=== PATIENT | male | born 1960 | race Caucasian/White ===

== ENCOUNTER 2018-05-02 14:59 | Emergency (ER) | payer MEDICARE, OTHER ==
[~2018-05-02] VITALS: Ht 170.2 cm; Wt 76.2 kg
[~2018-05-02 14:59] MED LIST: SYNTHROID137 MCG ORAL
--- NOTE | 2018-05-02 15:00 | NUR ---
Note pb in EDM - 05/02/18 at 1646 by JOCELIN ED Nurse Note: Pt was taken to CT, per [place]. Pt was returned to ED due to CT being down. Will reattempt to send pt after CT is working
--- NOTE | 2018-05-02 15:00 | NUR ---
ED Nurse Note: Pt brought by ambulance, pt was feeling dizzy and fell. per pt, he fell 4x the last 4 days. per pt he hit his head and entire right side. per pt pain is bearable 5/10 but knees hurt. bruises are present at pt knees prior to arrival.
[2018-05-02 15:05] VITALS: BP 133/69
--- NOTE | 2018-05-02 15:29 | Emergency Room Report ---
History of Present Illness General Chief Complaint: Dizziness Source: Patient, EMS Present Illness HPI 58-year-old male, with history of hypothyroidism, presenting with dizziness. Patient says that he's been dizzy, sometimes room spinning, has caused him to fall and the last 3 days, he has had 4 ground-level falls. Says that he has not hit his head or loss consciousness. He did hit his right knee as well as a as well as his right rib cage that has been painful. No actual open wounds but he does have abrasions. No chest pain or shortness of breath. No blurry vision. No nausea no vomiting. Says that he has felt dehydrated and has not eaten in 3 days. No fever no chills Allergies: Coded Allergies: No Known Allergies (Unverified , 05/02/18) Patient History Past Medical History: see triage record Past Surgical History: none Pertinent Family History: none Reviewed Nursing Documentation: PMH: Agreed; PSxH: Agreed Review of Systems All Other Systems: negative except mentioned in HPI Physical Exam Vital Signs Date Time Temp Pulse Resp B/P (MAP) Pulse Ox O2 Delivery O2 Flow Rate FiO2 05/02/18 14:52 99.5 100 24 133/69 100 Room Air Sp02 EP Interpretation: reviewed, normal General Appearance: alert, GCS 15, non-toxic, mild distress Head: normocephalic, atraumatic Eyes: bilateral eye normal inspection, bilateral eye PERRL, bilateral eye EOMI ENT: normal ENT inspection, normal pharynx, normal voice, moist mucus membranes Neck: normal inspection, full range of motion, supple Respiratory: normal inspection, lungs clear, normal breath sounds, no respiratory distress, no retraction, no wheezing, speaking full sentences, chest symmetrical Cardiovascular #1: normal inspection, regular rate, rhythm, normal capillary refill Cardiovascular #2: 2+ radial (R), 2+ radial (L) Gastrointestinal: normal inspection, non tender, soft, non-distended, no guarding Genitourinary: no CVA tenderness Musculoskeletal: back normal, other - Right knee with slight effusion and tender to palpation although he does have full range of motion, right rib paper plate machine tender to palpation around sixth and seventh ribs, abrasions noted. No open wounds. Neurologic: normal inspection, alert, oriented x3, responsive, solderer dipper III-XII nml as tested, motor strength/tone normal, sensory intact, normal gait, speech normal Psychiatric: normal inspection, judgement/insight normal, memory normal Skin: normal inspection, normal color, no rash, warm/dry, well hydrated, normal turgor Procedures Critical Care Time Critical Care Time 40 minutes of critical care time performed in order to assess and manage the high probability of imminent of lifethreatening deterioration secondary to neurologic function excludes all billable procedures Medical Decision Making Diagnostic Impression: Primary Impression: Neoplasm of cerebellum Additional Impressions: Lung mass Mass of thoracic vertebra ER Course 58-year-old male with dizziness, also has had 4 falls in the last 4 days DDX: Viral illness, dehydration, electrolyte disturbance, ACS, arrhythmia, CVA, posterior stroke, intracranial bleed Rule out right knee contusion versus fracture, also right rib fracture versus contusion Plan: Obtain labs, ua, EKG, CXR CT head, right knee x-ray, and CT chest ER course: Patient has been monitored during ED stay, HD stable NEUROLOGICALLY INTACT GCS 15 remains NPO keppra and mannitol given lower ext with normal strength b/l Disposition: Patient is to be xferred to [facility] for higher level of care DW neurointensivist Dr Dao from [facility] who has accepted pt for transfer [facility] via ALS Please note that this Emergency Department Report was dictated using [employer] program coordinator technology software, occasionally this can lead to erroneous entry secondary to interpretation by the dictation equipment. EKG Diagnostic Results EP Interpretation: Yes Rate: normal Rhythm: NSR ST Segments: No acute changes ASA given to patient: No Rhythm Strip EP Interpretation: Yes Rate: 91 Rhythm: NSR, no PVCs, no ectopy Chest X-ray CXR: Ordered: Yes 1 view Indication: Dizziness EP interpretation: Yes Interpretation: No consolidation, no effusion, no PTX, no acute cardiopulmonary disease Impression: No acute disease Electronically signed by Richardson Quesada MD Laboratory Tests Test 05/02/18 15:11 05/02/18 15:49 White Blood Count 11.4 K/UL (4.8-10.8) H Red Blood Count 4.84 M/UL (4.70-6.10) Hemoglobin 15.0 G/DL (14.2-18.0) Hematocrit 42.9 % (42.0-52.0) Mean Corpuscular Volume 89 FL (80-99) Mean Corpuscular Hemoglobin 30.9 PG (27.0-31.0) Mean Corpuscular Hemoglobin Concent 34.9 G/DL (32.0-36.0) Red Cell Distribution Width 11.0 % (11.6-14.8) L Platelet Count 352 K/UL (150-450) Mean Platelet Volume 4.9 FL (6.5-10.1) L Neutrophils (%) (Auto) 82.7 % (45.0-75.0) H Lymphocytes (%) (Auto) 8.5 % (20.0-45.0) L Monocytes (%) (Auto) 7.1 % (1.0-10.0) Eosinophils (%) (Auto) 0.3 % (0.0-3.0) Basophils (%) (Auto) 1.4 % (0.0-2.0) Prothrombin Time 10.4 SEC (9.30-11.50) Prothrombin Time INR 1.0 (0.9-1.1) PTT 33 SEC (23-33) Sodium Level 128 MMOL/L (136-145) L Potassium Level 3.6 MMOL/L (3.5-5.1) Chloride Level 92 MMOL/L (98-107) L Carbon Dioxide Level 25 MMOL/L (21-32) Anion Gap 11 mmol/L (5-15) Blood Urea Nitrogen 8 mg/dL (7-18) Creatinine 1.0 MG/DL (0.55-1.30) Estimate Glomerular Filtration Rate > 60 mL/min (>60) Glucose Level 170 MG/DL (74-106) H Calcium Level 9.5 MG/DL (8.5-10.1) Total Bilirubin 0.5 MG/DL (0.2-1.0) Aspartate Amino Transferase (AST) 21 U/L (15-37) Alanine Aminotransferase (ALT) 23 U/L (12-78) Alkaline Phosphatase 83 U/L (46-116) Total Creatine Kinase 75 U/L (26-308) Troponin I 0.000 ng/mL (0.000-0.056) Total Protein 8.0 G/DL (6.4-8.2) Albumin 3.2 G/DL (3.4-5.0) L Globulin 4.8 g/dL Albumin/Globulin Ratio 0.7 (1.0-2.7) L Urine Color Elise Urine Appearance Clear Urine pH 8 (4.5-8.0) Urine Specific [place] 1.010 (1.005-1.035) Urine Protein 2+ (NEGATIVE) H Urine Glucose (UA) Negative (NEGATIVE) Urine Ketones 3+ (NEGATIVE) H Urine Blood 1+ (NEGATIVE) H Urine Nitrite Negative (NEGATIVE) Urine Bilirubin Negative (NEGATIVE) Urine Ictotest Negative (NEGATIVE) Urine Urobilinogen 8 MG/DL (0.0-1.0) H Urine Leukocyte Esterase 1+ (NEGATIVE) H Urine RBC 5-10 /HPF (0 - 0) H Urine WBC 2-4 /HPF (0 - 0) Urine Squamous Epithelial Cells Occasional /LPF Urine Bacteria Few /HPF (NONE) Urine Sperm Few /LPF (NONE) CT/MRI/US Diagnostic Results CT/MRI/US Diagnostic Results : Imaging Test Ordered: CT HEAD AND CT CHEST Impression CT HEAD: Suspected mass within the cerebellum with surrounding edema, mass effect on the fourth ventricle. Further evaluation with gadolinium-enhanced MRI is needed. Neurosurgical consultation is recommended. CT CHEST: Right posterior hilar mass suspicious for bronchogenic carcinoma. Suspicion of metastatic neoplasm with a right T7-8 paravertebral mass measuring 3 x 2.5 x 3.6 cm with adjacent bony erosion of adjacent vertebra. Mild right posterior medial atelectasis. Pulmonary emphysema/COPD. Findings discussed via telephone with the emergency room physician Dr. Quesada 5: 30 PM, 05/02/2018 Last Vital Signs Date Time Temp Pulse Resp B/P (MAP) Pulse Ox O2 Delivery O2 Flow Rate FiO2 05/02/18 14:52 99.5 100 24 133/69 100 Room Air [facility] Condition: Critical Richardson Quesada M.D. May 02, 2018 15:29
--- NOTE | 2018-05-02 15:30 | NUR ---
ED Nurse Note: Pt was taken to CT, per [place]. Pt was returned to ED due to CT being down. Will reattempt to send pt after CT is working
[2018-05-02 15:36] LABS: BASOPHILS % (AUTO) 1.4 % (0.0-2.0); EOSINOPHILS % (AUTO) 0.3 % (0.0-3.0); HEMATOCRIT 42.9 % (42.0-52.0); LYMPHOCYTES % (AUTO) 8.5 % (20.0-45.0); MEAN CORPUSCULAR VOLUME 89 FL (80-99); MONOCYTES % (AUTO) 7.1 % (1.0-10.0); NEUTROPHILS % (AUTO) 82.7 % (45.0-75.0); PLATELET COUNT 352 K/UL (150-450); RED BLOOD COUNT 4.84 M/UL (4.70-6.10); WHITE BLOOD COUNT 11.4 K/UL (4.8-10.8)
[2018-05-02 15:49] LABS: ANION GAP 11 mmol/L (5-15); BLOOD UREA NITROGEN 8 mg/dL (7-18); CALCIUM 9.5 MG/DL (8.5-10.1); CARBON DIOXIDE 25 MMOL/L (21-32); CHLORIDE 92 MMOL/L (98-107); POTASSIUM 3.6 MMOL/L (3.5-5.1); SODIUM 128 MMOL/L (136-145)
[2018-05-02 15:53] LABS: ALANINE AMINOTRANSFERASE 23 U/L (12-78); ALBUMIN 3.2 G/DL (3.4-5.0); ALBUMIN/GLOBULIN RATIO 0.7 (1.0-2.7); ALKALINE PHOSPHATASE 83 U/L (46-116); ASPARTATE AMINO TRANSFERASE 21 U/L (15-37); BILIRUBIN,TOTAL 0.5 MG/DL (0.2-1.0); CREATINE KINASE 75 U/L (26-308)
--- NOTE | 2018-05-02 16:12 | Diagnostic Imaging Report ---
Indication: Pain Knee pain/trauma 3 views of the right knee were obtained. Findings: No acute fracture, malalignment, or joint effusion are identified. There is mild joint space narrowing. The bones appear osteopenic. Impression: Negative for acute findings.
--- NOTE | 2018-05-02 16:14 | Diagnostic Imaging Report ---
Indication: Dyspnea Comparison: None A single view chest radiograph was obtained. Findings: The right hilum is prominent or there may be perihilar infiltrate. Heart size is normal. Lungs are clear. The bones are slightly osteopenic. IMPRESSION: Right hilar mass versus infiltrate. Correlate clinically. Recommend follow-up PA and lateral chest
[2018-05-02 16:23] LABS: APPEARANCE,URINE CLEAR; BILIRUBIN, URINE NEGATIVE (NEGATIVE); GLUCOSE, URINE (UA) NEGATIVE (NEGATIVE); KETONES,URINE 3+ (NEGATIVE); LEUKOCYTE ESTERASE ,URINE 1+ (NEGATIVE); NITRITE,URINE NEGATIVE (NEGATIVE); PH,URINE 8 (4.5-8.0); PROTEIN,URINE 2+ (NEGATIVE); UROBILINOGEN,URINE 8 MG/DL (0.0-1.0)
[2018-05-02 16:24] LABS: COLOR,URINE AMBER
--- NOTE | 2018-05-02 16:35 | NUR ---
ED Nurse Note: CALLED CT TO FOLLOW UP ORDER
--- NOTE | 2018-05-02 16:40 | NUR ---
ED Nurse Note: telephone report give to geneva rutherford.
[2018-05-02 16:52] VITALS: BP 138/75
[2018-05-02] MEDS ORDERED: BREO ELLIPTA 11 EACH IH (17:18)
[2018-05-02] MEDS ORDERED: GLUCOSAMINE1000 M1 PO (17:18)
--- NOTE | 2018-05-02 17:22 | Diagnostic Imaging Report ---
Indication: Dizziness. Frequent falls. Vertigo Technique: Contiguous 5 mm thick transaxial imaging of the head obtained in a Siemens Sensation [address] scanner. Soft tissue and bone windows generated. Automatic Exposure Control was utilized. Total Dose length Product (DLP): 1457.[address] Dose Index Volume (CTDIvol): 70.38 mGy Comparison: none Findings: There is edema within the cerebellum right of midline with suggestion of a underlying mass. Findings suspicious for OCCASIONAL BABYSITTER tumor. Low density vasogenic edema results in compression of the fourth ventricle. Further evaluation with gadolinium-enhanced MRI is recommended.. Supratentorially, the ventricles are mildly prominent. The appear proportional to sulcal prominence, findings in keeping with mild atrophy. Calvarium is unremarkable. IMPRESSION: Suspected mass within the cerebellum with surrounding edema, mass effect on the fourth ventricle. Further evaluation with gadolinium-enhanced MRI is needed. Neurosurgical consultation is recommended. The CT scanner at [facility] is accredited by the [employer] and the scans are performed using dose optimization techniques as appropriate to a performed exam including Automatic Exposure control.
[2018-05-02] MEDS ORDERED: levETIRAcetam 1,000mg/NS100ml 100 ML IVPB ONE (17:30)
--- NOTE | 2018-05-02 17:33 | NUR ---
ED Nurse Note: CT results returned, pt will not be transferred to tele unit
--- NOTE | 2018-05-02 17:34 | Diagnostic Imaging Report ---
Indication: Chest pain Technique: Continuous helical transaxial imaging of the chest was obtained from the thoracic inlet to the upper abdomen. No intravenous contrast was administered. Coronal 2-D reformats were also obtained. Total Dose length Product (DLP): 974.[address] Dose Index Volume (CTDIvol): 23.08 mGy Comparison: none Findings: There is a right posterior hilar mass demonstrated suspicious for bronchogenic carcinoma not evaluated well on this study done without contrast material. The mass is about 3 cm in size. Hyperlucency scattered throughout the upper lobes. Mild right basal atelectasis is present probably post obstructive due to some encroachment or narrowing of the right lower lobe bronchus. There is no significant volume loss in a degree of atelectasis is very mild and subsegmental. Just posterior to the mass there is a 3.6 x 3 x 2.5 cm right paravertebral mass with adjacent contiguous erosion of the part of the T7-T8 vertebra. Finding is suspicious for metastatic neoplasm. The heart is unremarkable. There is a small hiatal hernia. There is breathing motion limiting evaluation. The visualized part of the upper abdomen is unremarkable otherwise. IMPRESSION: Right posterior hilar mass suspicious for bronchogenic carcinoma. Suspicion of metastatic neoplasm with a right T7-8 paravertebral mass measuring 3 x 2.5 x 3.6 cm with adjacent bony erosion of adjacent vertebra. Mild right posterior medial atelectasis. Pulmonary emphysema/COPD. Findings discussed via telephone with the emergency room physician Dr. Quesada 5:30 PM, 05/02/[address] scanner at [facility] is accredited by the [employer] and the scans are performed using dose optimization techniques as appropriate to a performed exam including Automatic Exposure control.
[2018-05-02] MEDS ORDERED: Morphine Sulfate 4mg/ml Inj (IV/IM USE ONLY) IVP PRN (17:45)
[2018-05-02] MEDS ORDERED: Mannitol 20% IV 500 ML ONE (17:45)
[2018-05-02] MEDS ORDERED: Mannitol 20% IV 500 ML IV ONE (17:45)
[2018-05-02] MEDS ORDERED: MULTIVITAMINS1 EAC8 ORAL (18:24)
[2018-05-02] MEDS ORDERED: ALBUTEROL SULF8.5 GM INH (18:27)
--- NOTE | 2018-05-02 18:29 | NUR ---
ED Nurse Note: spoke with hoang from [facility] in regards to pt transport. pt transportation will arrive in 30 min per hoang.
[2018-05-02 18:30] VITALS: BP 138/61
--- NOTE | 2018-05-02 18:41 | NUR ---
ED Nurse Note: called [facility] to give telephone report. Per Nusrat RN ([facility]) "receving nurse is yet to be assigned call back in 10 min". will reattempt telephone report.
[2018-05-02 19:01] VITALS: BP 141/67
--- NOTE | 2018-05-02 19:01 | NUR ---
ED Nurse Note: Telephone report given to ROLF Duarte at [facility] Farzana ABEL.
[2018-05-02 19:29] VITALS: BP 141/67
--- NOTE | 2018-05-02 19:30 | NUR ---
ED Nurse Note: Transport arrived and pt is to tras[facility]ferred [place] [facility], pt is aox 4, stable vss, denies pain
--- NOTE | 2018-05-02 19:31 | NUR ---
ED Nurse Note:' All belongings are taken with pt
--- NOTE | 2018-05-03 16:16 | Cardiology Report ---
APPROVED REPORT EKG Measurement Heart [id number] ID [id number] Normal sinus rhythm Normal ECG
== END 2018-05-02 19:30 | disposition short-term general hospital (02) ==
LOC: EDBD 14:59 → EMR 15:50 → 2E 15:54 → UNDOADMIN 15:54 → EDBEDREQ 16:33 → CANBEDREQ 18:42 → EMR 19:30
DX: D49.6 Neoplasm of unspecified behavior of brain (principal); R91.8 Other nonspecific abnormal finding of lung field; M48.8X4 Other specified spondylopathies, thoracic region; E03.9 Hypothyroidism, unspecified; F17.200 Nicotine dependence, unspecified, uncomplicated; J98.11 Atelectasis; J43.9 Emphysema, unspecified
CPT/HCPCS: 36415; 70450; 71045; 71250; 73562; 80053; 81003; 82550; 84484; 85025; 85610; 85730; 93005; 96361; 96374; 99291; J1953; J2150; J2270

== ENCOUNTER 2018-09-10 06:15 | Inpatient (IN) | payer MEDICARE, OTHER ==
[~2018-09-10] VITALS: Ht 170.2 cm; Wt 72.3 kg
[2018-09-10] VITALS (7 sets, daily range): BP systolic 96–132; BP diastolic 56–95
[~2018-09-10 06:15] MED LIST changes: +ALBUTEROL SULF8.5 GM INH; +BREO ELLIPTA 11 EACH IH; +GLUCOSAMINE1000 M1 PO; +MULTIVITAMINS1 EAC8 ORAL
--- NOTE | 2018-09-10 06:23 | NUR ---
ED Nurse Note: Travis guillen Ra [id number] from home c/o upper back pain for 2 weeks now. Pt is AO x 4times, VSS, on room air no distress. PRISCILLAD seen Pt at bedside.
[2018-09-10] MEDS ORDERED: Ketorolac 30mg Inj IV ONE (06:45)
[2018-09-10] MEDS ORDERED: Morphine Sulfate 4mg/ml Inj (IV USE ONLY) IVP ONE (06:45)
[2018-09-10] MEDS ORDERED: Ipratropium 0.02% Inh Soln 2.5ml UD HHN ONE (06:45)
[2018-09-10] MEDS ORDERED: Albuterol ud Inhalation HHN ONE (06:45)
--- NOTE | 2018-09-10 06:50 | Emergency Room Report ---
History of Present Illness General Chief Complaint: Back Pain-No Injury Source: Patient Present Illness HPI Patient presents with right-sided lower back of chest pain. It's constant and rated 7/10 and stabbing. Somewhat pleuritic and positional. He can't sleep because there is no position is comfortable. The patient states he has masses in his brain and also in his face that have been diagnosed yet. He has an oncologist at [facility]. He states he's not taking anything for pain. He also has emphysema and smokes. He's not using her inhaler or nebulizer at this time. He's been on prednisone in the past for his COPD. Denies any fevers or chills. The phlegm is yellow in color at times. There is no blood. The patient also complains of constipation. He denies dysuria. She's lost weight. He has right-sided facial pain that's in front of the mass that's in front of his ear. He's had an MRI done of his brain but does not results. No nausea, vomiting, diarrhea. In April CT head revealed cerebellar mass (R of midline) and R hilar mass in chest. He was transferred to [facility] and MRI was done. Radiation therapy has been done. He states he has some difficulty speaking at times but states no problems swallowing. Allergies: Coded Allergies: No Known Allergies (Unverified , 05/02/18) Patient History Past Medical History: see triage record Social History: Reports: smoking Social History Narrative from home Reviewed Nursing Documentation: PMH: Agreed; PSxH: Agreed Nursing Documentation-PM Past Medical History: No History, Except For Hx Cancer: Yes - brain cancer Review of Systems All Other Systems: negative except mentioned in HPI Physical Exam Vital Signs Date Time Temp Pulse Resp B/P (MAP) Pulse Ox O2 Delivery O2 Flow Rate FiO2 09/10/18 06:12 98.4 72 18 127/77 (94) 98 Room Air Sp02 EP Interpretation: reviewed, normal General Appearance: alert, GCS 15, cachetic, Chronically Ill Head: normocephalic, atraumatic Eyes: right eye other - Slight ptosis right eye ; bilateral eye normal inspection, bilateral eye PERRL, bilateral eye EOMI ENT: moist mucus membranes, other - Right facial weakness Neck: supple Respiratory: no respiratory distress, rhonchi, wheezing, expiration, other - Posterior lower eighth or ninth rib pain not T spine tenderness Cardiovascular #1: regular rate, rhythm, no edema Cardiovascular #2: 2+ radial (R) Gastrointestinal: soft, no mass, non-distended, no guarding, no rebound, tenderness - Diffuse, scaphoid Genitourinary: no CVA tenderness Musculoskeletal: gait/station normal, normal range of motion, no calf tenderness Neurologic: alert, oriented x3, DTRs symmetric, sensory intact, motor weakness - Right facial nerve Psychiatric: depressed affect Skin: other - Tobacco stains right index and middle finger Lymphatic: adenopathy - Right. 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 Differential includes pneumothorax, pulmonary embolus, pneumonia, rib metastasis, compression fracture, liver inflammation amongst others. The patient appears to have metastatic disease. He also has fairly severe COPD. Evaluation will be with EKG, chest x-ray, CT of the chest and labs. The patient will be treated with gentle IV hydration, Toradol and morphine. EKG without acute injury. CXR with RML infiltrate. Labs with elevated WBC. Renal failure (normal renal function in April). Antibiotics begun after blood cultures obtained. Intermittent hypoxia (89%), O2 begun. Pain improved with treatment. Tolerating oral intake. CT with larger mass with obstruction. Also vertebral body metastasis R T 7-9 area (most likely responsible for pain). Fractional excretion of sodium suggests pre-renal etiology of renal failure. Patient admitted med Dr. Davila. Laboratory Tests Test 09/10/18 06:30 09/10/18 06:45 09/10/18 08:00 09/10/18 09:04 Urine Color Yellow Urine Appearance Clear Urine pH 5 (4.5-8.0) Urine Specific [place] 1.015 (1.005-1.035) Urine Protein 2+ (NEGATIVE) H Urine Glucose (UA) Negative (NEGATIVE) Urine Ketones 1+ (NEGATIVE) H Urine Blood 4+ (NEGATIVE) H Urine Nitrite Negative (NEGATIVE) Urine Bilirubin Negative (NEGATIVE) Urine Urobilinogen Normal MG/DL (0.0-1.0) Urine Leukocyte Esterase Negative (NEGATIVE) Urine RBC 2-4 /HPF (0 - 0) H Urine WBC 0-2 /HPF (0 - 0) Urine Squamous Epithelial Cells Occasional /LPF Urine Bacteria Occasional /HPF (NONE) Urine Opiates Screen Negative (NEGATIVE) Urine Barbiturates Screen Negative (NEGATIVE) Phencyclidine (PCP) Screen Negative (NEGATIVE) Urine Amphetamines Screen Negative (NEGATIVE) Urine Benzodiazepines Screen Negative (NEGATIVE) Urine Cocaine Screen Negative (NEGATIVE) Urine Marijuana (THC) Screen Negative (NEGATIVE) White Blood Count 18.7 K/UL (4.8-10.8) H Red Blood Count 3.91 M/UL (4.70-6.10) L Hemoglobin 9.3 G/DL (14.2-18.0) L Hematocrit 28.7 % (42.0-52.0) L Mean Corpuscular Volume 74 FL (80-99) L Mean Corpuscular Hemoglobin 23.9 PG (27.0-31.0) L Mean Corpuscular Hemoglobin Concent 32.5 G/DL (32.0-36.0) Red Cell Distribution Width 16.2 % (11.6-14.8) H Platelet Count 276 K/UL (150-450) Mean Platelet Volume 5.5 FL (6.5-10.1) L Neutrophils (%) (Auto) % (45.0-75.0) Lymphocytes (%) (Auto) % (20.0-45.0) Monocytes (%) (Auto) % (1.0-10.0) Eosinophils (%) (Auto) % (0.0-3.0) Basophils (%) (Auto) % (0.0-2.0) Differential Total Cells Counted 100 Neutrophils % (Manual) 88 % (45-75) H Lymphocytes % (Manual) 7 % (20-45) L Monocytes % (Manual) 5 % (1-10) Eosinophils % (Manual) 0 % (0-3) Basophils % (Manual) 0 % (0-2) Band Neutrophils 0 % (0-8) Platelet Estimate Adequate Platelet Morphology Normal Anisocytosis 1+ Microcytosis 1+ Prothrombin Time 12.0 SEC (9.30-11.50) H Prothrombin Time INR 1.1 (0.9-1.1) PTT 38 SEC (23-33) H Sodium Level 124 MMOL/L (136-145) L Potassium Level 4.0 MMOL/L (3.5-5.1) Chloride Level 87 MMOL/L (98-107) L Carbon Dioxide Level 27 MMOL/L (21-32) Anion Gap 11 mmol/L (5-15) Blood Urea Nitrogen 31 mg/dL (7-18) H Creatinine 2.0 MG/DL (0.55-1.30) H Estimate Glomerular Filtration Rate 34.5 mL/min (>60) Glucose Level 91 MG/DL (74-106) Calcium Level 11.0 MG/DL (8.5-10.1) H Total Bilirubin 0.7 MG/DL (0.2-1.0) Aspartate Amino Transferase (AST) 31 U/L (15-37) Alanine Aminotransferase (ALT) 23 U/L (12-78) Alkaline Phosphatase 128 U/L (46-116) H Total Creatine Kinase 21 U/L (26-308) L Troponin I 0.000 ng/mL (0.000-0.056) Pro-B-Type Natriuretic Peptide 1089 pg/mL (0-125) H Total Protein 8.5 G/DL (6.4-8.2) H Albumin 1.9 G/DL (3.4-5.0) L Globulin 6.6 g/dL Albumin/Globulin Ratio 0.3 (1.0-2.7) L Lactic Acid Level 1.30 mmol/L (0.4-2.0) Urine Osmolality 333 mOsm/kg (429-449) L Urine Random Sodium < 20 mmol/L (20-110) L Urine Creatinine 87.4 MG/DL (30.0-125.0) EKG Diagnostic Results Rate: normal Rhythm: NSR ST Segments: no acute changes Rhythm Strip Diag. Results EP Interpretation: yes Rhythm: NSR, no PVC's, no ectopy Chest X-Ray Diagnostic Results Chest X-Ray Diagnostic Results : Chest X-Ray Ordered: Yes # of Views/Limited/Complete: 1 View Indication: Chest Pain EP Interpretation: Yes Interpretation: no effusion, no pneumothorax, other - COPD and RML infiltrate Impression: Other Electronically Signed by: Electronically signed by Janes Estrada MD CT/MRI/US Diagnostic Results CT/MRI/US Diagnostic Results : Imaging Test Ordered: chest Impression Interval enlargement of the right lower lobe infrahilar mass now measuring 5.9 x 5.9 x 5 cm with extensive adjacent satellite nodularity indicative of progression of malignancy. Associated exclusion of the right lower lobe bronchus likely postobstructive Interval enlargement of the right paravertebral mass adjacent to the medial right lower lobe now measuring 4.9 x 4.9 x 4 cm and eroding into the invading adjacent seventh and eighth and ninth thoracic vertebral bodies Interval enlargement of interlobar bilateral pulmonary metastatic nodules Last Vital Signs Date Time Temp Pulse Resp B/P (MAP) Pulse Ox O2 Delivery O2 Flow Rate FiO2 09/10/18 13:52 97.3 09/10/18 12:00 80 20 106/79 (88) 97 09/10/18 10:16 Nasal Cannula 1.0 09/10/18 09:47 21 Status: improved Disposition: ADMITTED INPATIENT Condition: Serious Referrals: NOT CHOSEN IPA/,REFERRING (PCP) Janes Estrada MD September 10, 2018 06:50
[2018-09-10 06:51] LABS: APPEARANCE,URINE CLEAR; BILIRUBIN, URINE NEGATIVE (NEGATIVE); GLUCOSE, URINE (UA) NEGATIVE (NEGATIVE); KETONES,URINE 1+ (NEGATIVE); LEUKOCYTE ESTERASE ,URINE NEGATIVE (NEGATIVE); NITRITE,URINE NEGATIVE (NEGATIVE); PH,URINE 5 (4.5-8.0); PROTEIN,URINE 2+ (NEGATIVE); UROBILINOGEN,URINE NORMAL MG/DL (0.0-1.0)
--- NOTE | 2018-09-10 07:00 | NUR ---
ED Nurse Note: Urine and blood sample sent to lab.
[2018-09-10 07:03] LABS: COLOR,URINE YELLOW
--- NOTE | 2018-09-10 07:10 | NUR ---
ED Nurse Note: Received patient from Sajan BANSAL
[2018-09-10 07:15] LABS: HEMATOCRIT 28.7 % (42.0-52.0); HEMOGLOBIN 9.3 G/DL (14.2-18.0); MEAN CORPUSCULAR VOLUME 74 FL (80-99); PLATELET COUNT 276 K/UL (150-450); RED BLOOD COUNT 3.91 M/UL (4.70-6.10); RED CELL DISTRIBUTION WIDTH 16.2 % (11.6-14.8); WHITE BLOOD COUNT 18.7 K/UL (4.8-10.8)
[2018-09-10 07:27] LABS: ANION GAP 11 mmol/L (5-15); BLOOD UREA NITROGEN 31 mg/dL (7-18); CARBON DIOXIDE 27 MMOL/L (21-32); CHLORIDE 87 MMOL/L (98-107); SODIUM 124 MMOL/L (136-145)
[2018-09-10 07:35] LABS: INR 1.1 (0.9-1.1)
[2018-09-10 07:38] LABS: ALANINE AMINOTRANSFERASE 23 U/L (12-78); ALBUMIN 1.9 G/DL (3.4-5.0); ALBUMIN/GLOBULIN RATIO 0.3 (1.0-2.7); ALKALINE PHOSPHATASE 128 U/L (46-116); ASPARTATE AMINO TRANSFERASE 31 U/L (15-37); BILIRUBIN,TOTAL 0.7 MG/DL (0.2-1.0); CREATINE KINASE 21 U/L (26-308)
[2018-09-10] MEDS ORDERED: Piperacillin/Tazobactam 3.375 GM in NS 110 ML IVPB ONE (07:45)
[2018-09-10] MEDS ORDERED: Vancomycin 1 GM in NS 275 ML IVPB ONE (07:45)
--- NOTE | 2018-09-10 07:48 | NUR ---
ED Nurse Note: blood culture and lactic sent to lab
--- NOTE | 2018-09-10 08:22 | NUR ---
ED Nurse Note: patient went to CT
--- NOTE | 2018-09-10 09:19 | Diagnostic Imaging Report ---
PORTABLE AP SEMIUPRIGHT CXR: HISTORY: 58-year-old male with right back/chest pain, history of cerebellar mass. COMPARISON: One view CXR and chest CT without contrast 05/02/2018 FINDINGS: There are innumerable new small pulmonary nodules throughout the lungs bilaterally, as well as increased size of the ill-defined right inferior hilar region mass; there are additional ill-defined coarse reticular opacities in the infrahilar right lung base. Right paraspinal mass in the mid thoracic spine region has increased in size as well. Heart size is normal. No abnormal mediastinal widening. No obvious pneumothorax or effusion. IMPRESSION: Interval significant progression of probable metastatic disease of the chest, as described above.
--- NOTE | 2018-09-10 09:23 | NUR ---
ED Nurse Note: 3E called, Reta RN is busy at the moment, told to call back in 10 minutes
--- NOTE | 2018-09-10 09:40 | Diagnostic Imaging Report ---
EXAM: CT Chest Without Intravenous Contrast CLINICAL HISTORY: PAIN TECHNIQUE: Axial computed tomography images of the chest without intravenous contrast. CTDI is 15 mGy and DLP is 537 mGy-cm. One or more of the following dose reduction techniques were used: automated exposure control, adjustment of the mA and/or kV according to patient size, use of iterative reconstruction technique. Coronal and sagittal reformatted images were created and reviewed. COMPARISON: CT chest dated 05/02/18 FINDINGS: Lungs: Interval enlargement of the right lower lobe/infrahilar mass, now measuring 5.9 x 5.9 x 5.0 cm, with extensive adjacent satellite nodularity, indicative of progression of malignancy. Associated occlusion of the right lower lobe bronchus, likely postobstructive. Interval enlargement of the right paravertebral mass adjacent to the medial right lower lobe, now measuring at least 4.9 x 4.9 x 4.0 cm, and eroding into/invading the adjacent 7th, 8th, and 9th thoracic vertebral bodies. Interval enlargement of innumerable bilateral pulmonary metastatic nodules, largest measuring 1.6 cm in the left lower lobe (series 5 image 47), 1.4 cm at the periphery of the right lower lobe (series 5 image 49), and 1.2 cm in the right middle lobe (series 5 image 26). Pleural space: Unremarkable. No pneumothorax. No significant effusion. Heart: Unremarkable. No cardiomegaly. No significant pericardial effusion. Bones/joints: New anterior compression deformities of T7 and T8, likely pathologic fractures. Soft tissues: Unremarkable. Vasculature: Unremarkable. No thoracic aortic aneurysm. Lymph nodes: Unremarkable. No enlarged lymph nodes. IMPRESSION: 1. Interval enlargement of the right lower lobe/infrahilar mass, now measuring 5.9 x 5.9 x 5.0 cm, with extensive adjacent satellite nodularity, indicative of progression of malignancy. Associated occlusion of the right lower lobe bronchus, likely postobstructive. 2. Interval enlargement of the right paravertebral mass adjacent to the medial right lower lobe, now measuring at least 4.9 x 4.9 x 4.0 cm, and eroding into/invading the adjacent 7th, 8th, and 9th thoracic vertebral bodies. 3. New anterior compression deformities of T7 (80% height loss) and T8 (50% height loss), likely pathologic fractures. 4. Interval enlargement of innumerable bilateral pulmonary metastatic nodules.
[2018-09-10] MEDS ORDERED: Albuterol/Ipratropium 3ml neb HHN PRN ×2 (09:45)
[2018-09-10] MEDS ORDERED: Promethazine/Codeine 5ml UD ORAL PRN (09:45)
[2018-09-10] MEDS ORDERED: Miralax 17gm pkt ORAL PRN ×2 (09:45)
[2018-09-10] MEDS ORDERED: Nitroglycerin Subl 0.4mg tab SL PRN (09:45)
--- NOTE | 2018-09-10 09:50 | NUR ---
NURSE NOTES: PATIENT RECEIVED FROM ER DEPT. VIA [facility].PATIENT AOX4. ABLE TO TRANSFER SELF FROM [facility] TO BED INDEPENDENTLY. ALL BELONGINGS ACCOUNTED FOR
--- NOTE | 2018-09-10 09:55 | NUR ---
NURSE NOTES: HEAD TO TOE SKIN ASSESSMENT INITIATED. SKIN INTACT. DENIES PAIN. QUESTIONS ANSWERED NEEDS MET, DISCUSSED PLAN OF CARE FOR THE DAY. VERBALIZED UNDERSTANDING. BED IN LOW AND LOCKED POSITION. CALL LIGHT WITHIN REACH. ABLE TO USE CALL LIGHT EFFECTIVELY.
--- NOTE | 2018-09-10 12:00 | NUR ---
NURSE NOTES: OVERLAY MATTRESS APPLIED. OPTIFOAM APPLIED UPPER MID BACK, SACRAL, BILATERAL ANKLES,HEELS AND ELBOWS. ALL AREAS NON-BLANCHABLE AND INTACT.PATIENT TURNED Q2H. BED IN LOW AND LOCKED POSITION. CALL LIGHT WITHIN. WILL CONTINUE TO MONITOR.
[2018-09-10] MEDS: Cefepime HCl 2 GM in D5W 110 ML IV SCH (13:18)
[2018-09-10] MEDS: Morphine Sulfate 2mg/ml Inj(IV/IM USE ONLY) IVP PRN ×2 (13:22→23:12)
--- NOTE | 2018-09-10 13:22 | Consultation ---
Consult Note Consult Note asked to eval for renal failure and Hyponatremia Chief Complaint: Back Pain-No Injury HPI Patient presents with right-sided lower back of chest pain. It's constant and rated 7/10 and stabbing. Somewhat pleuritic and positional. He can't sleep because there is no position is comfortable. The patient states he has masses in his brain and also in his face that have been diagnosed yet. He has an oncologist at [facility]. He states he's not taking anything for pain. He also has emphysema and smokes. He's not using her inhaler or nebulizer at this time. He's been on prednisone in the past for his COPD. Denies any fevers or chills. The phlegm is yellow in color at times. There is no blood. The patient also complains of constipation. He denies dysuria. She's lost weight. He has right-sided facial pain that's in front of the mass that's in front of his ear. He's had an MRI done of his brain but does not results. No nausea, vomiting, diarrhea. In April CT head revealed cerebellar mass (R of midline) and R hilar mass in chest. He was transferred to [facility] and MRI was done. Radiation therapy has been done. No Known Allergies (Unverified , 05/02/18) Past Medical History: No History, Except For Hx Cancer: Yes - brain cancer examined data reviewed Assessment/Plan Renal failure ? acute on chronic ? dehydration HypoNatremia with Low Jo likely depletional RML Pneumonia HypoAlbuminemia / Proteinuria Anemia - Low MCV HypoThyroid Saline IV Monitor lytes Anemia amado Per consultants Marcin Pham MD September 10, 2018 13:22
[2018-09-10] MEDS ORDERED: NaCl 3% 500ml 500 ML IV ONE (15:00)
--- NOTE | 2018-09-10 15:31 | NUR ---
CASE MANAGEMENT: INITIAL REVIEW 09/10/2018 58 YO M FRIEDAA FROM HOME CC: BACK PAIN PMHx: BRAIN CANCER. SI:PNA. T 98.4 HR 72 RR 18 B/P 127/77 SATS 98% ON RA WBC 18.7 NA 124 CL 87 BUN 31 CR 2 CA 11 ALP 128 21 BNP 1089 IS: DUO NEB HHN X1 MORPHINE IV X1 TORADOL IV X1 NS BOLUS X1 ZOFRAN IV X1 ZOSYN IV X1 VANCO IV X1 PATIENT ADMITTED TO MED/SURG STATUS 09/10/2018 @ 0752 DCP: PATIENT TO BE DISCHARGED TO HOME ONCE MEDICALLY CLEARED.
[2018-09-10] MEDS ORDERED: NS 500ML ONE (15:53)
[2018-09-10] MEDS ORDERED: Tubing IV Secondary IV ONE (15:53)
--- NOTE | 2018-09-10 16:24 | NUR ---
NURSE NOTES: PATIENT REMAINS STABLE. TURNED Q2H SKIN REMAINS INTACT. NO COUGH NOTED. UNABLE TO OBTAIN SPUTUM SPECIMEN AT THIS TIME.
--- NOTE | 2018-09-10 16:45 | History and Physical Report ---
DATE OF ADMISSION: 09/10/2018 TIME SEEN: At 9 a.m. CONSULTANTS: 1. Marybel Mcmanus M.D. 2. Arcenio Horowitz M.D. 3. Pavel Bean M.D. 4. Marcin Pham M.D. CHIEF COMPLAINT: Back pain, shortness of breath, right middle lobe pneumonia, sepsis, cancer. BRIEF HISTORY: This is a 58-year-old male, who lives at home, presents with increased back pain and shortness of breath for a couple of days, came to [facility], diagnosed with right middle lobe pneumonia and sepsis. He does have history of metastatic lung cancer and was status post radiation. He also has renal failure. Currently, he is O2 NC, slight short of breath in bed in the ER gurney, and slight back pain. No complaint. REVIEW OF SYSTEMS: No chest pain. Slight short of breath. No nausea, vomiting, or diarrhea. PAST MEDICAL HISTORY: As mentioned includes lung cancer, status post radiation and renal failure. PAST SURGICAL HISTORY: Brain tumor surgery, brain cerebellar surgery. MEDICATIONS: Zosyn, vancomycin, Zofran, albuterol, ipratropium, morphine, Ketoralac, IV fluids. ALLERGIES: Denies. SOCIAL HISTORY: No smoking. Occasional alcohol. No intravenous drug abuse. FAMILY HISTORY: Noncontributory. PHYSICAL EXAMINATION: GENERAL: Slightly anxious, O2 NC, slight short of breath in the ER gurney, oriented x2, in no acute distress. VITAL SIGNS: Temperature is 98 degrees, pulse 89, respirations 22, blood pressure 114/69. CARDIOVASCULAR: No murmur. LUNGS: Poor air exchange. ABDOMEN: Bowel sounds distant. EXTREMITIES: No cyanosis, clubbing, or edema. NEUROLOGIC: The patient moves all extremities, slightly weak. LABORATORY AND DIAGNOSTIC DATA: White count 18, hemoglobin and hematocrit 9.3/28, otherwise okay. BMP shows sodium 124, chloride 87, BUN and creatinine 31/2.0, and troponin 0.00. BNP is 1089, albumin 1.9. INR is 1.1. PTT is 30. Urinalysis show 1+ ketone, 4+ protein. Urine toxicology is negative. ASSESSMENT: 1. Right middle lobe pneumonia. 2. Sepsis. 3. Shortness of breath. 4. Back pain. 5. Metastatic lung cancer. 6. Renal failure. 7. Hyponatremia. 8. Anaemia. 9. Malnutrition. PLAN: 1. O2 and pulmonary treatment. 2. Antibiotics per Infectious Disease. 3. PT, dietary evaluation. 4. CBC and BMP in the morning. 5. Pain control. 6. Resume home medications. 7. We will continue to follow this patient. Marky Davila D.O. DR: COREEN JOB#: [id number] CC:
--- NOTE | 2018-09-10 17:15 | Consultation ---
History of Present Illness General Chief Complaint: Back Pain-No Injury Present Illness Allergies: Coded Allergies: No Known Allergies (Unverified , 05/02/18) Medication History Scheduled Albuterol Sulfate* (Albuterol Sulfate Mdi*), 2 PUFF INH Q4H, (Reported) Levothyroxine Sodium (Synthroid), 137 MCG ORAL DAILY, (Reported) Multivitamin With Minerals (Multivitamins With Minerals*), 1 TAB ORAL DAILY, ( Reported) Miscellaneous Medications Fluticasone/Vilanterol (Breo Ellipta 100-25 Mcg INH), 1 EACH IH, (Reported) Glucosamine Sulfate 2KCL (Glucosamine), 1,000 MG PO, (Reported) Patient History Healthcare decision maker Resuscitation status Full Code Advanced Directive on File Physical Exam Last 24 Hour Vital Signs Date Time Temp Pulse Resp B/P (MAP) Pulse Ox O2 Delivery O2 Flow Rate FiO2 09/10/18 15:58 98.6 67 18 96/62 (73) 96 09/10/18 13:52 97.3 09/10/18 12:00 97.3 80 20 106/79 (88) 97 09/10/18 10:16 Nasal Cannula 1.0 09/10/18 09:50 97.6 79 19 96/56 (69) 97 09/10/18 09:47 98.7 89 22 114/69 96 Nasal Cannula 1.0 21 09/10/18 08:35 98.7 89 22 114/69 96 Nasal Cannula 1.0 09/10/18 07:42 98.7 09/10/18 07:42 98.7 09/10/18 07:27 89 13 100 Room Air 09/10/18 07:16 98.7 88 15 122/79 94 Room Air 21 09/10/18 07:07 88 17 98 Room Air 21 09/10/18 07:05 88 17 98 Room Air 09/10/18 06:26 98.7 77 18 132/84 98 Room Air 09/10/18 06:12 98.4 72 18 127/77 (94) 98 Room Air Laboratory Tests Test 09/10/18 06:30 09/10/18 06:45 09/10/18 08:00 09/10/18 09:04 Urine Color Yellow Urine Appearance Clear Urine pH 5 (4.5-8.0) Urine Specific [place] 1.015 (1.005-1.035) Urine Protein 2+ (NEGATIVE) H Urine Glucose (UA) Negative (NEGATIVE) Urine Ketones 1+ (NEGATIVE) H Urine Blood 4+ (NEGATIVE) H Urine Nitrite Negative (NEGATIVE) Urine Bilirubin Negative (NEGATIVE) Urine Urobilinogen Normal MG/DL (0.0-1.0) Urine Leukocyte Esterase Negative (NEGATIVE) Urine RBC 2-4 /HPF (0 - 0) H Urine WBC 0-2 /HPF (0 - 0) Urine Squamous Epithelial Cells Occasional /LPF Urine Bacteria Occasional /HPF (NONE) Urine Opiates Screen Negative (NEGATIVE) Urine Barbiturates Screen Negative (NEGATIVE) Phencyclidine (PCP) Screen Negative (NEGATIVE) Urine Amphetamines Screen Negative (NEGATIVE) Urine Benzodiazepines Screen Negative (NEGATIVE) Urine Cocaine Screen Negative (NEGATIVE) Urine Marijuana (THC) Screen Negative (NEGATIVE) White Blood Count 18.7 K/UL (4.8-10.8) H Red Blood Count 3.91 M/UL (4.70-6.10) L Hemoglobin 9.3 G/DL (14.2-18.0) L Hematocrit 28.7 % (42.0-52.0) L Mean Corpuscular Volume 74 FL (80-99) L Mean Corpuscular Hemoglobin 23.9 PG (27.0-31.0) L Mean Corpuscular Hemoglobin Concent 32.5 G/DL (32.0-36.0) Red Cell Distribution Width 16.2 % (11.6-14.8) H Platelet Count 276 K/UL (150-450) Mean Platelet Volume 5.5 FL (6.5-10.1) L Neutrophils (%) (Auto) % (45.0-75.0) Lymphocytes (%) (Auto) % (20.0-45.0) Monocytes (%) (Auto) % (1.0-10.0) Eosinophils (%) (Auto) % (0.0-3.0) Basophils (%) (Auto) % (0.0-2.0) Differential Total Cells Counted 100 Neutrophils % (Manual) 88 % (45-75) H Lymphocytes % (Manual) 7 % (20-45) L Monocytes % (Manual) 5 % (1-10) Eosinophils % (Manual) 0 % (0-3) Basophils % (Manual) 0 % (0-2) Band Neutrophils 0 % (0-8) Platelet Estimate Adequate Platelet Morphology Normal Anisocytosis 1+ Microcytosis 1+ Prothrombin Time 12.0 SEC (9.30-11.50) H Prothromb Time International Ratio 1.1 (0.9-1.1) Activated Partial Thromboplast Time 38 SEC (23-33) H Sodium Level 124 MMOL/L (136-145) L Potassium Level 4.0 MMOL/L (3.5-5.1) Chloride Level 87 MMOL/L (98-107) L Carbon Dioxide Level 27 MMOL/L (21-32) Anion Gap 11 mmol/L (5-15) Blood Urea Nitrogen 31 mg/dL (7-18) H Creatinine 2.0 MG/DL (0.55-1.30) H Estimat Glomerular Filtration Rate 34.5 mL/min (>60) Glucose Level 91 MG/DL (74-106) Calcium Level 11.0 MG/DL (8.5-10.1) H Total Bilirubin 0.7 MG/DL (0.2-1.0) Aspartate Amino Transf (AST/SGOT) 31 U/L (15-37) Alanine Aminotransferase (ALT/SGPT) 23 U/L (12-78) Alkaline Phosphatase 128 U/L (46-116) H Total Creatine Kinase 21 U/L (26-308) L Troponin I 0.000 ng/mL (0.000-0.056) Pro-B-Type Natriuretic Peptide 1089 pg/mL (0-125) H Total Protein 8.5 G/DL (6.4-8.2) H Albumin 1.9 G/DL (3.4-5.0) L Globulin 6.6 g/dL Albumin/Globulin Ratio 0.3 (1.0-2.7) L Lactic Acid Level 1.30 mmol/L (0.4-2.0) Urine Osmolality 333 mOsm/kg (429-449) L Urine Random Sodium < 20 mmol/L (20-110) L Urine Creatinine 87.4 MG/DL (30.0-125.0) Height (Feet): 5 Height (Inches): 7.00 Weight (Pounds): 160 Medications Current Medications Medications (Trade) Dose Ordered Sig/John Route PRN Reason Start Time Stop Time Status Last Admin Dose Admin Acetaminophen (Tylenol) 650 mg Q4H PRN ORAL fever 09/10/18 09:45 10/10/18 09:44 Albuterol/ Ipratropium (Albuterol/ Ipratropium) 3 ml Q4H PRN HHN Shortness of Breath 09/10/18 09:45 09/15/18 09:44 Cefepime HCl 2 gm/ Dextrose 110 ml @ 220 mls/hr Q24H IV 09/10/18 12:00 09/17/18 11:59 09/10/18 13:18 Dextrose (Dextrose 50%) 25 ml Q30M PRN IV Hypoglycemia 09/10/18 09:45 10/10/18 09:44 Dextrose (Dextrose 50%) 50 ml Q30M PRN IV Hypoglycemia 09/10/18 09:45 10/10/18 09:44 Heparin Sodium (Porcine) (Heparin 5000 units/ml) 5,000 units EVERY 12 HOURS SUBQ 09/10/18 21:00 10/10/18 20:59 Levothyroxine Sodium (Synthroid) 25 mcg DAILY@0630 ORAL 09/11/18 06:30 10/11/18 06:29 Levothyroxine Sodium (Synthroid) 112 mcg DAILY@0630 ORAL 09/11/18 06:30 10/11/18 06:29 Morphine Sulfate (Morphine Sulfate) 2 mg Q4H PRN IVP Severe Pain (Pain Scale 7-10) 09/10/18 09:45 09/17/18 09:44 09/10/18 13:22 Nitroglycerin (Ntg) 0.4 mg Q5M PRN SL Prn Chest Pain 09/10/18 09:45 10/10/18 09:44 Ondansetron HCl (Zofran) 4 mg Q6H PRN IVP Nausea & Vomiting 09/10/18 09:45 10/10/18 09:44 Pantoprazole (Protonix) 40 mg DAILY ORAL 09/10/18 14:30 10/10/18 14:29 09/10/18 15:23 Polyethylene Glycol (Miralax) 17 gm DAILYPRN PRN ORAL Constipation 09/10/18 09:45 10/10/18 09:44 09/10/18 13:29 Promethazine HCl/ Codeine (Phenergan with Codeine) 5 ml Q4H PRN ORAL For Cough 09/10/18 09:45 10/10/18 09:44 Sodium Chloride 500 ml @ 30 mls/hr ONCE ONCE IV 09/10/18 15:00 09/11/18 07:39 09/10/18 15:24 Temazepam (Restoril) 15 mg HSPRN PRN ORAL Insomnia 09/10/18 09:45 09/17/18 09:44 Vancomycin HCl (Vanco rx to dose) 1 ea DAILY PRN MISC Per rx protocol 09/10/18 09:45 10/10/18 09:44 Assessment/Plan Assessment/Plan: Oncology Consultation Chief Complaint: Back Pain-No Injury DOS: 09/10/18 RFC: Metastatic lung cancer, head and neck cancer REQ MD: Mari Davila HPI 58 y old male presents with right-sided lower back of chest pain. It's constant and rated 7/10 and stabbing. Somewhat pleuritic and positional. He can't sleep because there is no position is comfortable. The patient states he has masses in his brain and also in his face that have been diagnosed yet. He has an oncologist at [facility]. He states he's not taking anything for pain. He also has emphysema and smokes. He's not using her inhaler or nebulizer at this time. He's been on prednisone in the past for his COPD. Denies any fevers or chills. The phlegm is yellow in color at times. There is no blood. The patient also complains of constipation. He denies dysuria. She's lost weight. He has right-sided facial pain that's in front of the mass that's in front of his ear. He's had an MRI done of his brain but does not results. No nausea, vomiting, diarrhea. In April CT head revealed cerebellar mass (R of midline) and R hilar mass in chest. He was transferred to [facility] and MRI was done. Radiation therapy has been done. Coded Allergies: No Known Allergies (Unverified , 05/02/18) Past Medical History: see triage record Social History: Reports: smoking Social History Narrative from home Reviewed Nursing Documentation: PMH: Agreed; PSxH: Agreed Past Medical History: No History, Except For Hx Cancer: Yes - brain cancer Review of Systems: negative except mentioned in HPI PE Vital Signs Date Time Temp Pulse Resp B/P (MAP) Pulse Ox O2 Delivery O2 Flow Rate FiO2 09/10/18 06:12 98.4 72 18 127/77 (94) 98 Room Air Gen: cachetic Head: normocephalic, atraumatic Eyes: right eye other - Slight ptosis right eye ; bilateral eye normal inspection, bilateral eye EOMI ENT: moist mucus membranes, other - Right facial weakness Neck: supple Respiratory: no respiratory distress, rhonchi, wheezing, expiration, posterior lower eighth or ninth rib pain not T spine tenderness CV: regular rate, rhythm, no edema GI: soft, no mass, non-distended, diffuse, scaphoid : no CVA tenderness Msk: gait/station normal, normal range of motion, no calf tenderness Neurologic: alert, oriented x3, DTRs symmetric, sensory intact, motor weakness - Right facial nerve Psychiatric: depressed affect Skin: other - Tobacco stains right index and middle finger Lymphatic: adenopathy - Right. Color noted 2 x 4 cm hard and immobile Laboratory Tests Test 09/10/18 06:30 09/10/18 06:45 09/10/18 08:00 09/10/18 09:04 Urine Color Yellow Urine Appearance Clear Urine pH 5 (4.5-8.0) Urine Specific [place] 1.015 (1.005-1.035) Urine Protein 2+ (NEGATIVE) H Urine Glucose (UA) Negative (NEGATIVE) Urine Ketones 1+ (NEGATIVE) H Urine Blood 4+ (NEGATIVE) H Urine Nitrite Negative (NEGATIVE) Urine Bilirubin Negative (NEGATIVE) Urine Urobilinogen Normal MG/DL (0.0-1.0) Urine Leukocyte Esterase Negative (NEGATIVE) Urine RBC 2-4 /HPF (0 - 0) H Urine WBC 0-2 /HPF (0 - 0) Urine Squamous Epithelial Cells Occasional /LPF Urine Bacteria Occasional /HPF (NONE) Urine Opiates Screen Negative (NEGATIVE) Urine Barbiturates Screen Negative (NEGATIVE) Phencyclidine (PCP) Screen Negative (NEGATIVE) Urine Amphetamines Screen Negative (NEGATIVE) Urine Benzodiazepines Screen Negative (NEGATIVE) Urine Cocaine Screen Negative (NEGATIVE) Urine Marijuana (THC) Screen Negative (NEGATIVE) White Blood Count 18.7 K/UL (4.8-10.8) H Red Blood Count 3.91 M/UL (4.70-6.10) L Hemoglobin 9.3 G/DL (14.2-18.0) L Hematocrit 28.7 % (42.0-52.0) L Mean Corpuscular Volume 74 FL (80-99) L Mean Corpuscular Hemoglobin 23.9 PG (27.0-31.0) L Mean Corpuscular Hemoglobin Concent 32.5 G/DL (32.0-36.0) Red Cell Distribution Width 16.2 % (11.6-14.8) H Platelet Count 276 K/UL (150-450) Mean Platelet Volume 5.5 FL (6.5-10.1) L Neutrophils (%) (Auto) % (45.0-75.0) Lymphocytes (%) (Auto) % (20.0-45.0) Monocytes (%) (Auto) % (1.0-10.0) Eosinophils (%) (Auto) % (0.0-3.0) Basophils (%) (Auto) % (0.0-2.0) Differential Total Cells Counted 100 Neutrophils % (Manual) 88 % (45-75) H Lymphocytes % (Manual) 7 % (20-45) L Monocytes % (Manual) 5 % (1-10) Eosinophils % (Manual) 0 % (0-3) Basophils % (Manual) 0 % (0-2) Band Neutrophils 0 % (0-8) Platelet Estimate Adequate Platelet Morphology Normal Anisocytosis 1+ Microcytosis 1+ Prothrombin Time 12.0 SEC (9.30-11.50) H Prothrombin Time INR 1.1 (0.9-1.1) PTT 38 SEC (23-33) H Sodium Level 124 MMOL/L (136-145) L Potassium Level 4.0 MMOL/L (3.5-5.1) Chloride Level 87 MMOL/L (98-107) L Carbon Dioxide Level 27 MMOL/L (21-32) Anion Gap 11 mmol/L (5-15) Blood Urea Nitrogen 31 mg/dL (7-18) H Creatinine 2.0 MG/DL (0.55-1.30) H Estimate Glomerular Filtration Rate 34.5 mL/min (>60) Glucose Level 91 MG/DL (74-106) Calcium Level 11.0 MG/DL (8.5-10.1) H Total Bilirubin 0.7 MG/DL (0.2-1.0) Aspartate Amino Transferase (AST) 31 U/L (15-37) Alanine Aminotransferase (ALT) 23 U/L (12-78) Alkaline Phosphatase 128 U/L (46-116) H Total Creatine Kinase 21 U/L (26-308) L Troponin I 0.000 ng/mL (0.000-0.056) Pro-B-Type Natriuretic Peptide 1089 pg/mL (0-125) H Total Protein 8.5 G/DL (6.4-8.2) H Albumin 1.9 G/DL (3.4-5.0) L Globulin 6.6 g/dL Albumin/Globulin Ratio 0.3 (1.0-2.7) L Lactic Acid Level 1.30 mmol/L (0.4-2.0) Urine Osmolality 333 mOsm/kg (429-449) L Urine Random Sodium < 20 mmol/L (20-110) L Urine Creatinine 87.4 MG/DL (30.0-125.0) Assessment and Recs: # Metastatic lung cancer -- right lower lobe infrahilar mass now measuring 5.9 x 5.9 x 5 cm with extensive adjacent satellite nodularity indicative of progression of malignancy. Associated exclusion of the right lower lobe bronchus likely postobstructive Interval enlargement of the right paravertebral mass adjacent to the medial right lower lobe now measuring 4.9 x 4.9 x 4 cm and eroding into the invading adjacent seventh and eighth and ninth thoracic vertebral bodies, Interval enlargement of interlobar bilateral pulmonary metastatic nodules --> at this time, given prior findings, he has very likely metastatic lung cancer given prior cancer history --> recommend f/u with Dr. Post at [facility] for further eval and may need biopsy --> if pcp or pulm recommends biopsy, can also be done in house --> had a outpatient pet scan that was completed last week --> f/u with Dr. Post if needs chemo/immunotherapy # Anemia of chronic disease (or of iron deficiency) due to underlying chronic medical issues, multifactorial --> Anemia workup has been ordered, rule out gi bleed --> No evidence of hemolysis is noted, peripheral smear has been reviewed. --> Hgb goal >7. Transfuse prn. --> Epogen or iron at this time is not particularly indicated --> Medications have been reviewed --> low threshold for gi evaluation in case has occult + # Leukocytosis/elevated white blood cell count, unspecified, very likely related to pna --> have reviewed peripheral smear and bandemia/neutrophilia noted --> continue antibiotics if they have been started by ID team --> monitor for resolution # Hypercalcemia very likely due to malignancy --> on ivf, has been started --> aredia and zometa as needed # Coagulation defect, multifactorial usually related to poor PO intake versus medications, versus hepatitis v cirrhosis --> administer Vitamin K if patient is bleeding or FFP if the INR is >10 --> hold off on ffp unless active procedure/bleeding, first begin with vit K 10 --> mixing study as needed # Right middle lobe pneumonia --> abx has been started --> monitor for resolution # Hyponatremia with renal failure --> on ivf # Bone metastases The timing of this note does not necessarily reflect the time of the patient was seen. Greatly appreciate consultation! Lamonte Bean MD September 10, 2018 17:15
--- NOTE | 2018-09-10 17:44 | NUR ---
NURSE NOTES: NO VOID SINCE ADMITTED TO FLOOR. PER PATIENT, VOIDED IN ER TO OBTAIN URINE SPECIMEN THERE WHICH WAS RESULTED. INITAITED BLADDER SCAN; RESULTS 169 MLS IN BLADDER.
[2018-09-10 17:49] LABS: BILIRUBIN,DIRECT 0.3 MG/DL (0.0-0.3); BILIRUBIN,TOTAL 0.6 MG/DL (0.2-1.0)
--- NOTE | 2018-09-10 19:29 | NUR ---
HAND-OFF: Report given to AIMEE WETZEL RN.
--- NOTE | 2018-09-10 19:35 | NUR ---
NURSE NOTES: Received report from ROLF Mcduffie. Patient resting in bed. Bed in low position, locked, side rails up x2. Call light within reach. No distress noted at this time. Alert and oriented x4. On O2 1L NC. Patient on overlay mattress, bony areas padded. Patient wishes to wait til later to put SCDs on. IVF infusing well on LAC, repositioned. Will continue to monitor.
[2018-09-10] MEDS: Heparin 5000 units/ml inj SUBQ SCH (20:37)
[2018-09-10] MEDS ORDERED: Heparin 5000 units/ml inj SUBQ SCH (21:00)
[2018-09-10] MEDS ORDERED: Cefepime HCl 1 GM in D5W 55 ML IV SCH (21:00)
--- NOTE | 2018-09-10 21:52 | Consultation ---
Consult Note Consult Note [id number] Arcenio Horowitz MD September 10, 2018 21:52
[2018-09-10] MEDS ORDERED: Vancomycin 1 GM in D5W 275 ML IV SCH (23:00)
--- NOTE | 2018-09-10 23:00 | Consultation ---
DATE OF CONSULTATION: 09/10/2018 CONSULTING PHYSICIAN: Arcenio Horowitz M.D. REFERRING PHYSICIAN: Marky Davila D.O. REASON FOR REQUEST: Observation of the patient for pneumonia and antibiotic management. HISTORY OF PRESENT ILLNESS: The patient is a 58-year-old male who lives at home came to the hospital because of shortness of breath. The patient also has been complaining of cough. Infectious Disease consultation has been requested for further evaluation of the patient's antibiotic management. The patient has history of brain cancer. Overall, I found the patient is poor historian. Details of the brain cancer is not clear. CT of the chest was done CT scan 4 months earlier showed interval enlargement of the right lower lobe infrahilar mass almost 6 x 6 x 5 centimeter with adjacent satellite nodularity ____ malignancy and associated occlusion of the right lower lobe bronchus. Also, the patient has right paravertebral mass, compression deformity of T7, multiple metastatic pulmonary nodules. The patient was found to have leukocytosis. The patient currently is on cefepime. SOCIAL HISTORY: The patient lives at home. ALLERGIES: No known drug allergies. FAMILY HISTORY: Not contributing. REVIEW OF SYSTEMS: The patient is poor historian. MEDICATIONS: Cefepime. PHYSICAL EXAMINATION: VITAL SIGNS: Temperature 97.3, pulse 86, respiratory rate 18, and blood pressure 96/62. HEENT: No pale conjunctivae. No scleral icterus. NECK: No lymphadenopathy. CHEST: Coarse breathing sounds. HEART: S1 and S2. ABDOMEN: Soft. EXTREMITIES: No cyanosis at this time. NEUROLOGIC: Awake. LABORATORY DATA: White blood cells 18, hemoglobin 9.3, platelets 276,000 ____ 128. BUN 31 and creatinine 2. Urine tox negative. CT of the chest as mentioned above. ASSESSMENT: The patient is a 58-year-old male with: 1. History of lung cancer. 2. History of brain cancer, brain tumor, status post surgery who has now leukocytosis. 3. Possible postobstructive pneumonia. 4. Afebrile. PLAN: 1. We will continue the patient on cefepime and vancomycin. 2. CBC and BMP. 3. Monitor cultures (blood, sputum). 4. ____ evaluation and recommendations. 5. Follow nephrology recommendation regarding renal insufficiency. 6. Based on the patient's clinical course and labs, we will do further recommendations. Thank you, Dr. Marky Davila for allowing me to participate in the care of this patient. I will follow the patient with you during this hospitalization. Arcenio Horowitz M.D. DR: ANAYELI JOB#: [id number] CC:
[2018-09-11] VITALS: BP 97/59
--- NOTE | 2018-09-11 01:55 | NUR ---
NURSE NOTES: Patient c/o nausea and heartburn. Coughing up small amount of white mucus, emesis small amount brownish fluid. Given Zofran IVP.
[2018-09-11 04:00] VITALS: BP 105/67
[2018-09-11] MEDS ORDERED: Levothyroxine 25mcg tab ORAL SCH (06:30)
[2018-09-11 06:47] LABS: HEMOGLOBIN 8.3 G/DL (14.2-18.0); MEAN CORPUSCULAR VOLUME 76 FL (80-99); PLATELET COUNT 182 K/UL (150-450); RED BLOOD COUNT 3.43 M/UL (4.70-6.10); RED CELL DISTRIBUTION WIDTH 16.6 % (11.6-14.8); WHITE BLOOD COUNT 15.2 K/UL (4.8-10.8)
[2018-09-11 07:10] LABS: % IRON SATURATION 11 % (15-50); IRON 12 ug/dL (50-175); TOTAL IRON BINDING CAPACITY 105 ug/dL (250-450)
--- NOTE | 2018-09-11 07:30 | NUR ---
HAND-OFF: Report given to ROLF Morataya.
[2018-09-11 07:33] LABS: GAMMA GLUTAMYL TRANSPEPTIDASE 120 U/L (5-85); PHOSPHORUS 2.8 MG/DL (2.5-4.9)
[2018-09-11 07:36] LABS: ALANINE AMINOTRANSFERASE 22 U/L (12-78); ALBUMIN 1.5 G/DL (3.4-5.0); ALBUMIN/GLOBULIN RATIO 0.3 (1.0-2.7); ALKALINE PHOSPHATASE 151 U/L (46-116); ANION GAP 7 mmol/L (5-15); ASPARTATE AMINO TRANSFERASE 41 U/L (15-37); BILIRUBIN,TOTAL 0.4 MG/DL (0.2-1.0); BLOOD UREA NITROGEN 32 mg/dL (7-18); CALCIUM 9.5 MG/DL (8.5-10.1); CARBON DIOXIDE 27 MMOL/L (21-32); CHLORIDE 95 MMOL/L (98-107); CHOLESTEROL 121 MG/DL (< 200); HDL CHOLESTEROL 19 MG/DL (40-60); SODIUM 129 MMOL/L (136-145); TRIGLYCERIDES 107 MG/DL (30-150)
--- NOTE | 2018-09-11 07:36 | NUR ---
NURSE NOTES: Pt in bed awake. Singaporean speaker. X-ray pending to left hand . Sister is at bedside current plan of care will be followed Addendum: 09/11/18 at 0759 by Rafia Marie RN error wrong pt
--- NOTE | 2018-09-11 07:44 | NUR ---
NURSE NOTES: Pt did want to eat , " I do not eat much" Tray has not been touched" Offered to warm up his tray. With refusal. Substitute, offered . Pt making eye contact. Follow up required for chest xray results, f MD consult. Call light is in reach
[2018-09-11 08:00] VITALS: BP 107/67
[2018-09-11 08:11] LABS: FERRITIN 1817 NG/ML (8-388)
--- NOTE | 2018-09-11 08:26 | General Progress Note ---
Assessment/Plan Problem List: (1) Anemia ICD Codes: D64.9 - Anemia, unspecified SNOMED: 294580708 (2) Malnutrition ICD Codes: E46 - Unspecified protein-calorie malnutrition SNOMED: 25412407 (3) Sepsis ICD Codes: A41.9 - Sepsis, unspecified organism SNOMED: 64445604 (4) Right middle lobe pneumonia ICD Codes: J18.1 - Lobar pneumonia, unspecified organism SNOMED: 865006523 Qualifiers: Qualified Codes: J18.1 - Lobar pneumonia, unspecified organism (5) Hyponatremia ICD Codes: E87.1 - Hypo-osmolality and hyponatremia SNOMED: 47285591 (6) Renal failure ICD Codes: N19 - Unspecified kidney failure SNOMED: 32943078 Qualifiers: Qualified Codes: N17.9 - Acute kidney failure, unspecified (7) Bone metastases ICD Codes: C79.51 - Secondary malignant neoplasm of bone SNOMED: 32656164 Status: unchanged Assessment/Plan: o2 pulm tx abx pt diet cbc bmp am Subjective Constitutional: Reports: weakness Respiratory: Reports: shortness of breath Allergies: Coded Allergies: No Known Allergies (Unverified , 05/02/18) All Systems: reviewed and negative except above Subjective o2nc calm Objective Last 24 Hour Vital Signs Date Time Temp Pulse Resp B/P (MAP) Pulse Ox O2 Delivery O2 Flow Rate FiO2 09/11/18 04:00 97.7 82 17 105/67 (80) 93 09/11/18 00:00 97.8 79 19 97/59 (72) 97 09/10/18 21:00 Nasal Cannula 1.0 09/10/18 20:00 97.8 71 18 96/65 (75) 97 09/10/18 15:58 98.6 67 18 96/62 (73) 96 09/10/18 13:52 97.3 09/10/18 12:00 97.3 80 20 106/79 (88) 97 09/10/18 10:16 Nasal Cannula 1.0 09/10/18 09:50 97.6 79 19 96/56 (69) 97 09/10/18 09:47 98.7 89 22 114/69 96 Nasal Cannula 1.0 21 09/10/18 08:35 98.7 89 22 114/69 96 Nasal Cannula 1.0 Intake and Output 09/10/18 09/11/18 19:00 07:00 Intake Total 1135 ml 570 ml Output Total 180 ml 450 ml Balance 955 ml 120 ml Intake Oral 920 ml 240 ml IV Total 215 ml 330 ml Output Urine Total 180 ml 450 ml # Voids 1 2 Laboratory Tests 09/10/18 09:04: Urine Osmolality 333L, Urine Random Sodium < 20L, Urine Creatinine 87.4 09/10/18 17:25: Reticulocyte Count 0.6, Sickle Cell Screen [Pending], Fibrinogen 967H, Total Bilirubin 0.6, Direct Bilirubin 0.3, Total Protein (PEP) [Pending], Albumin (PEP ) [Pending], Globulin (PEP) [Pending], Albumin/Globulin Ratio [Pending], Alpha-1 -Globulins [Pending], Evlvi-9-Csnebxyzb [Pending], Beta Globulins [Pending], Beta Gamma Globulin [Pending], PEP Abnormal Protein Bands [Pending], Protein Electrophoresis Interpret [Pending], HIV (1&2) Antibody Rapid Negative 09/11/18 05:00: Total Bilirubin 0.4, Albumin/Globulin Ratio 0.3L, White Blood Count 15.2H, Red Blood Count 3.43L, Hemoglobin 8.3L, Hematocrit 26.0L, Mean Corpuscular Volume 76L, Mean Corpuscular Hemoglobin 24.2L, Mean Corpuscular Hemoglobin Concent 31.9L, Red Cell Distribution Width 16.6H, Platelet Count 182, Mean Platelet Volume 6.4L, Neutrophils (%) (Auto) , Lymphocytes (%) (Auto) , Monocytes (%) ( Auto) , Eosinophils (%) (Auto) , Basophils (%) (Auto) , Neutrophils % (Manual) [ Pending], Lymphocytes % (Manual) [Pending], Platelet Estimate [Pending], Platelet Morphology [Pending], Sodium Level 129L, Potassium Level 4.0, Chloride Level 95L, Carbon Dioxide Level 27, Anion Gap 7, Blood Urea Nitrogen 32H, Creatinine 2.0H, Estimat Glomerular Filtration Rate 34.5, Glucose Level 118H, Hemoglobin A1c 6.4H, Lactic Acid Level 1.10, Uric Acid 9.1H, Calcium Level 9.5, Phosphorus Level 2.8, Magnesium Level 2.0, Iron Level 12L, Total Iron Binding Capacity 105L, Percent Iron Saturation 11L, Unsaturated Iron Binding 93L, Ferritin 1817H, Gamma Glutamyl Transpeptidase 120H, Aspartate Amino Transf (AST/ SGOT) 41H, Alanine Aminotransferase (ALT/SGPT) 22, Alkaline Phosphatase 151H, Troponin I 0.000, C-Reactive Protein, Quantitative 26.7H, Pro-B-Type Natriuretic Peptide 1269H, Total Protein 6.9, Albumin 1.5L, Globulin 5.4, Triglycerides Level 107, Cholesterol Level 121, LDL Cholesterol 67, HDL Cholesterol 19L, Cholesterol/HDL Ratio 6.4H, Vitamin B12 Level 910, Folate 3.5L , Thyroid Stimulating Hormone (TSH) 43.734H, Free Thyroxine 0.34L, Free Triiodothyronine < 0.5L, Cortisol AM Sample [Pending], Random Vancomycin Level 8.6 Height (Feet): 5 Height (Inches): 7.00 Weight (Pounds): 160 General Appearance: lethargic EENT: normal ENT inspection Neck: normal alignment Cardiovascular: normal peripheral pulses, normal rate, regular rhythm Respiratory/Chest: chest wall non-tender, decreased breath sounds Abdomen: normal bowel sounds, non tender, soft Extremities: normal inspection Edema: no edema noted Arm (L), no edema noted Arm (R), no edema noted Leg (L), no edema noted Leg (R), no edema noted Pedal (L), no edema noted Pedal (R), no edema noted Generalized Neurologic: responsive, motor weakness Skin: normal pigmentation, warm/dry Marky Davila DO September 11, 2018 08:25
[2018-09-11] MEDS ORDERED: Vancomycin 1.25gm Premix IVPB ONE (09:00)
[2018-09-11] MEDS: Heparin 5000 units/ml inj SUBQ SCH ×2 (09:21→20:48)
[2018-09-11 12:00] VITALS: BP 140/71
[2018-09-11] MEDS: Cefepime HCl 2 GM in D5W 110 ML IV SCH (12:42)
--- NOTE | 2018-09-11 13:03 | Hematology/Onc Progress Note ---
Assessment/Plan Assessment/Plan Head: normocephalic, atraumatic Eyes: right eye other - Slight ptosis right eye ; bilateral eye normal inspection ENT: moist mucus membranes, other - Right facial weakness Neck: supple Respiratory: no respiratory distress, rhonchi, wheezing, expiration, posterior lower eighth or ninth rib pain not T spine tenderness CV: regular rate, rhythm, no edema GI: soft, no mass, non-distended, diffuse, scaphoid : no CVA tenderness Msk: gait/station normal, normal range of motion, no calf tenderness Neurologic: alert, oriented x3, DTRs symmetric, sensory intact, motor weakness - Right facial nerve Psychiatric: depressed affect Skin: other - Tobacco stains right index and middle finger Lymphatic: adenopathy - Right. Color noted 2 x 4 cm hard and immobile Assessment and Recs: # Metastatic lung cancer -- right lower lobe infrahilar mass now measuring 5.9 x 5.9 x 5 cm with extensive adjacent satellite nodularity indicative of progression of malignancy. Associated exclusion of the right lower lobe bronchus likely postobstructive Interval enlargement of the right paravertebral mass adjacent to the medial right lower lobe now measuring 4.9 x 4.9 x 4 cm and eroding into the invading adjacent seventh and eighth and ninth thoracic vertebral bodies, Interval enlargement of interlobar bilateral pulmonary metastatic nodules --> at this time, given prior findings, he has very likely metastatic lung cancer given prior cancer history --> recommend f/u with Dr. Post at [facility] --> f/u with a biopsy if patient agrees of the lung, biopsy has been ordered --> if pcp or pulm recommends biopsy, can also be done in house --> had a outpatient pet scan that was completed last week # Anemia of chronic disease due to underlying chronic medical issues, multifactorial --> Anemia workup has been ordered, rule out gi bleed and ferritin is high --> No evidence of hemolysis is noted, peripheral smear has been reviewed. --> Hgb goal >7. Transfuse prn. --> Epogen or iron at this time is not particularly indicated --> Medications have been reviewed --> low threshold for gi evaluation in case has occult + # Leukocytosis/elevated white blood cell count, unspecified, very likely related to pna --> have reviewed peripheral smear and bandemia/neutrophilia noted --> continue antibiotics if they have been started by ID team --> monitor for resolution # Hypercalcemia very likely due to malignancy --> on ivf, has been started --> aredia and zometa as needed # Coagulation defect, multifactorial usually related to poor PO intake versus medications, versus hepatitis v cirrhosis --> administer Vitamin K if patient is bleeding or FFP if the INR is >10 --> hold off on ffp unless active procedure/bleeding, first begin with vit K 10 --> mixing study as needed # Right middle lobe pneumonia --> abx has been started --> monitor for resolution # Hyponatremia with renal failure --> on ivf # Bone metastases The timing of this note does not necessarily reflect the time of the patient was seen. Greatly appreciate consultation! Subjective Constitutional: Denies: no symptoms, chills, fever, malaise, weakness, other HEENT: Denies: no symptoms, eye pain, blurred vision, tearing, double vision, ear pain, ear discharge, nose pain, nose congestion, throat pain, throat swelling, mouth pain, mouth swelling, other Cardiovascular: Denies: no symptoms, chest pain, edema, irregular heart rate, lightheadedness, palpitations, syncope, other Respiratory: Denies: no symptoms, cough, shortness of breath, SOB with excertion, SOB at rest, sputum, wheezing, other Gastrointestinal/Abdominal: Denies: no symptoms, abdomen distended, abdominal pain, black stools, tarry stools, blood in stool, constipated, diarrhea, difficulty swallowing, nausea, poor appetite, poor fluid intake, rectal bleeding , vomiting, other Genitourinary: Denies: no symptoms, burning, discharge, frequency, flank pain, hematuria, incontinence, pain, urgency, other Allergies: Coded Allergies: No Known Allergies (Unverified , 05/02/18) Subjective 09/11: extremely fatigued this am, no chills, fevers, not eating Objective Objective Current Medications Medications (Trade) Dose Ordered Sig/John Route PRN Reason Start Time Stop Time Status Last Admin Dose Admin Acetaminophen (Tylenol) 650 mg Q4H PRN ORAL fever 09/10/18 09:45 10/10/18 09:44 Albuterol/ Ipratropium (Albuterol/ Ipratropium) 3 ml Q4H PRN HHN Shortness of Breath 09/10/18 09:45 09/15/18 09:44 Cefepime HCl 2 gm/ Dextrose 110 ml @ 220 mls/hr Q24H IV 09/10/18 12:00 09/17/18 11:59 09/11/18 12:42 Dextrose (Dextrose 50%) 25 ml Q30M PRN IV Hypoglycemia 09/10/18 09:45 10/10/18 09:44 Dextrose (Dextrose 50%) 50 ml Q30M PRN IV Hypoglycemia 09/10/18 09:45 10/10/18 09:44 Heparin Sodium (Porcine) (Heparin 5000 units/ml) 5,000 units EVERY 12 HOURS SUBQ 09/10/18 21:00 10/10/18 20:59 09/11/18 09:21 Levothyroxine Sodium (Synthroid) 100 mcg DAILY IV 09/11/18 09:00 10/11/18 08:59 09/11/18 09:19 Morphine Sulfate (Morphine Sulfate) 2 mg Q4H PRN IVP Severe Pain (Pain Scale 7-10) 09/10/18 09:45 09/17/18 09:44 09/10/18 23:12 Nitroglycerin (Ntg) 0.4 mg Q5M PRN SL Prn Chest Pain 09/10/18 09:45 10/10/18 09:44 Ondansetron HCl (Zofran) 4 mg Q6H PRN IVP Nausea & Vomiting 09/10/18 09:45 10/10/18 09:44 09/11/18 01:47 Pantoprazole (Protonix) 40 mg DAILY ORAL 09/10/18 14:30 10/10/18 14:29 09/11/18 09:20 Polyethylene Glycol (Miralax) 17 gm DAILYPRN PRN ORAL Constipation 09/10/18 09:45 10/10/18 09:44 09/10/18 13:29 Promethazine HCl/ Codeine (Phenergan with Codeine) 5 ml Q4H PRN ORAL For Cough 09/10/18 09:45 10/10/18 09:44 Temazepam (Restoril) 15 mg HSPRN PRN ORAL Insomnia 09/10/18 09:45 09/17/18 09:44 Vancomycin HCl (Vanco rx to dose) 1 ea DAILY PRN MISC Per rx protocol 09/10/18 09:45 10/10/18 09:44 Last 24 Hour Vital Signs Date Time Temp Pulse Resp B/P (MAP) Pulse Ox O2 Delivery O2 Flow Rate FiO2 09/11/18 09:00 Nasal Cannula 1.0 09/11/18 08:00 97.6 94 16 107/67 (80) 99 09/11/18 04:00 97.7 82 17 105/67 (80) 93 09/11/18 00:00 97.8 79 19 97/59 (72) 97 09/10/18 21:00 Nasal Cannula 1.0 09/10/18 20:00 97.8 71 18 96/65 (75) 97 09/10/18 15:58 98.6 67 18 96/62 (73) 96 09/10/18 13:52 97.3 09/10/18 12:00 97.3 80 20 106/79 (88) 97 09/10/18 10:16 Nasal Cannula 1.0 09/10/18 09:50 97.6 79 19 96/56 (69) 97 09/10/18 09:47 98.7 89 22 114/69 96 Nasal Cannula 1.0 21 09/10/18 08:35 98.7 89 22 114/69 96 Nasal Cannula 1.0 09/10/18 07:42 98.7 09/10/18 07:42 98.7 09/10/18 07:27 89 13 100 Room Air 09/10/18 07:16 98.7 88 15 122/79 94 Room Air 21 09/10/18 07:07 88 17 98 Room Air 21 09/10/18 07:05 88 17 98 Room Air 09/10/18 06:26 98.7 77 18 132/84 98 Room Air 09/10/18 06:12 98.4 72 18 127/77 (94) 98 Room Air Intake and Output 09/10/18 09/11/18 19:00 07:00 Intake Total 1135 ml 570 ml Output Total 180 ml 450 ml Balance 955 ml 120 ml Intake Oral 920 ml 240 ml IV Total 215 ml 330 ml Output Urine Total 180 ml 450 ml # Voids 1 2 Labs Test 09/10/18 06:30 09/10/18 06:45 09/10/18 08:00 09/10/18 09:04 Urine Color Yellow Urine Appearance Clear Urine pH 5 (4.5-8.0) Urine Specific [place] 1.015 (1.005-1.035) Urine Protein 2+ (NEGATIVE) Urine Glucose (UA) Negative (NEGATIVE) Urine Ketones 1+ (NEGATIVE) Urine Blood 4+ (NEGATIVE) Urine Nitrite Negative (NEGATIVE) Urine Bilirubin Negative (NEGATIVE) Urine Urobilinogen Normal MG/DL (0.0-1.0) Urine Leukocyte Esterase Negative (NEGATIVE) Urine RBC 2-4 /HPF (0 - 0) Urine WBC 0-2 /HPF (0 - 0) Urine Squamous Epithelial Cells Occasional /LPF Urine Bacteria Occasional /HPF (NONE) Urine Opiates Screen Negative (NEGATIVE) Urine Barbiturates Screen Negative (NEGATIVE) Phencyclidine (PCP) Screen Negative (NEGATIVE) Urine Amphetamines Screen Negative (NEGATIVE) Urine Benzodiazepines Screen Negative (NEGATIVE) Urine Cocaine Screen Negative (NEGATIVE) Urine Marijuana (THC) Screen Negative (NEGATIVE) White Blood Count 18.7 K/UL (4.8-10.8) Red Blood Count 3.91 M/UL (4.70-6.10) Hemoglobin 9.3 G/DL (14.2-18.0) Hematocrit 28.7 % (42.0-52.0) Mean Corpuscular Volume 74 FL (80-99) Mean Corpuscular Hemoglobin 23.9 PG (27.0-31.0) Mean Corpuscular Hemoglobin Concent 32.5 G/DL (32.0-36.0) Red Cell Distribution Width 16.2 % (11.6-14.8) Platelet Count 276 K/UL (150-450) Mean Platelet Volume 5.5 FL (6.5-10.1) Neutrophils (%) (Auto) % (45.0-75.0) Lymphocytes (%) (Auto) % (20.0-45.0) Monocytes (%) (Auto) % (1.0-10.0) Eosinophils (%) (Auto) % (0.0-3.0) Basophils (%) (Auto) % (0.0-2.0) Differential Total Cells Counted 100 Neutrophils % (Manual) 88 % (45-75) Lymphocytes % (Manual) 7 % (20-45) Monocytes % (Manual) 5 % (1-10) Eosinophils % (Manual) 0 % (0-3) Basophils % (Manual) 0 % (0-2) Band Neutrophils 0 % (0-8) Platelet Estimate Adequate Platelet Morphology Normal Anisocytosis 1+ Microcytosis 1+ Prothrombin Time 12.0 SEC (9.30-11.50) Prothromb Time International Ratio 1.1 (0.9-1.1) Activated Partial Thromboplast Time 38 SEC (23-33) Sodium Level 124 MMOL/L (136-145) Potassium Level 4.0 MMOL/L (3.5-5.1) Chloride Level 87 MMOL/L (98-107) Carbon Dioxide Level 27 MMOL/L (21-32) Anion Gap 11 mmol/L (5-15) Blood Urea Nitrogen 31 mg/dL (7-18) Creatinine 2.0 MG/DL (0.55-1.30) Estimat Glomerular Filtration Rate 34.5 mL/min (>60) Glucose Level 91 MG/DL (74-106) Calcium Level 11.0 MG/DL (8.5-10.1) Total Bilirubin 0.7 MG/DL (0.2-1.0) Aspartate Amino Transf (AST/SGOT) 31 U/L (15-37) Alanine Aminotransferase (ALT/SGPT) 23 U/L (12-78) Alkaline Phosphatase 128 U/L (46-116) Total Creatine Kinase 21 U/L (26-308) Troponin I 0.000 ng/mL (0.000-0.056) Pro-B-Type Natriuretic Peptide 1089 pg/mL (0-125) Total Protein 8.5 G/DL (6.4-8.2) Albumin 1.9 G/DL (3.4-5.0) Globulin 6.6 g/dL Albumin/Globulin Ratio 0.3 (1.0-2.7) Lactic Acid Level 1.30 mmol/L (0.4-2.0) Urine Osmolality 333 mOsm/kg (429-449) Urine Random Sodium < 20 mmol/L (20-110) Urine Creatinine 87.4 MG/DL (30.0-125.0) Test 09/10/18 17:25 09/11/18 05:00 Reticulocyte Count 0.6 % (0.5-2.0) Fibrinogen 967 mg/dL (200-400) Total Bilirubin 0.6 MG/DL (0.2-1.0) 0.4 MG/DL (0.2-1.0) Direct Bilirubin 0.3 MG/DL (0.0-0.3) HIV (1&2) Antibody Rapid Negative (NEGATIVE) White Blood Count 15.2 K/UL (4.8-10.8) Red Blood Count 3.43 M/UL (4.70-6.10) Hemoglobin 8.3 G/DL (14.2-18.0) Hematocrit 26.0 % (42.0-52.0) Mean Corpuscular Volume 76 FL (80-99) Mean Corpuscular Hemoglobin 24.2 PG (27.0-31.0) Mean Corpuscular Hemoglobin Concent 31.9 G/DL (32.0-36.0) Red Cell Distribution Width 16.6 % (11.6-14.8) Platelet Count 182 K/UL (150-450) Mean Platelet Volume 6.4 FL (6.5-10.1) Neutrophils (%) (Auto) % (45.0-75.0) Lymphocytes (%) (Auto) % (20.0-45.0) Monocytes (%) (Auto) % (1.0-10.0) Eosinophils (%) (Auto) % (0.0-3.0) Basophils (%) (Auto) % (0.0-2.0) Differential Total Cells Counted 100 Neutrophils % (Manual) 88 % (45-75) Lymphocytes % (Manual) 3 % (20-45) Monocytes % (Manual) 9 % (1-10) Eosinophils % (Manual) 0 % (0-3) Basophils % (Manual) 0 % (0-2) Band Neutrophils 0 % (0-8) Platelet Estimate Adequate Platelet Morphology Normal Anisocytosis 1+ Microcytosis 1+ Sodium Level 129 MMOL/L (136-145) Potassium Level 4.0 MMOL/L (3.5-5.1) Chloride Level 95 MMOL/L (98-107) Carbon Dioxide Level 27 MMOL/L (21-32) Anion Gap 7 mmol/L (5-15) Blood Urea Nitrogen 32 mg/dL (7-18) Creatinine 2.0 MG/DL (0.55-1.30) Estimat Glomerular Filtration Rate 34.5 mL/min (>60) Glucose Level 118 MG/DL (74-106) Hemoglobin A1c 6.4 % (4.3-6.0) Lactic Acid Level 1.10 mmol/L (0.4-2.0) Uric Acid 9.1 MG/DL (2.6-7.2) Calcium Level 9.5 MG/DL (8.5-10.1) Phosphorus Level 2.8 MG/DL (2.5-4.9) Magnesium Level 2.0 MG/DL (1.8-2.4) Iron Level 12 ug/dL (50-175) Total Iron Binding Capacity 105 ug/dL (250-450) Percent Iron Saturation 11 % (15-50) Unsaturated Iron Binding 93 ug/dL (112-346) Ferritin 1817 NG/ML (8-388) Gamma Glutamyl Transpeptidase 120 U/L (5-85) Aspartate Amino Transf (AST/SGOT) 41 U/L (15-37) Alanine Aminotransferase (ALT/SGPT) 22 U/L (12-78) Alkaline Phosphatase 151 U/L (46-116) Troponin I 0.000 ng/mL (0.000-0.056) C-Reactive Protein, Quantitative 26.7 mg/dL (0.00-0.90) Pro-B-Type Natriuretic Peptide 1269 pg/mL (0-125) Total Protein 6.9 G/DL (6.4-8.2) Albumin 1.5 G/DL (3.4-5.0) Globulin 5.4 g/dL Albumin/Globulin Ratio 0.3 (1.0-2.7) Triglycerides Level 107 MG/DL (30-150) Cholesterol Level 121 MG/DL (< 200) LDL Cholesterol 67 mg/dL (<100) HDL Cholesterol 19 MG/DL (40-60) Cholesterol/HDL Ratio 6.4 (3.3-4.4) Vitamin B12 Level 910 PG/ML (193-986) Folate 3.5 NG/ML (8.6-58.9) Thyroid Stimulating Hormone (TSH) 43.734 uiU/mL (0.358-3.740) Free Thyroxine 0.34 NG/DL (0.76-1.46) Free Triiodothyronine < 0.5 pg/mL (2.3-4.2) Random Vancomycin Level 8.6 ug/mL Height (Feet): 5 Height (Inches): 7.00 Weight (Pounds): 160 Objective GeN: weakness Head: normocephalic, atraumatic Eyes: right eye other - Slight ptosis right eye ; bilateral eye normal inspection, bilateral eye EOMI ENT: moist mucus membranes, other - Right facial weakness Neck: supple Respiratory: no respiratory distress, rhonchi, wheezing, expiration, posterior lower eighth or ninth rib pain not T spine tenderness CV: regular rate, rhythm, no edema GI: soft, no mass, non-distended, diffuse, scaphoid : no CVA tenderness Msk: gait/station normal, normal range of motion, no calf tenderness Neurologic: alert, oriented x3, DTRs symmetric, sensory intact, motor weakness - Right facial nerve Psychiatric: depressed affect Skin: other - Tobacco stains right index and middle finger Lymphatic: adenopathy - Right. Color noted 2 x 4 cm hard and immobile Lamonte Bean MD September 11, 2018 13:03
--- NOTE | 2018-09-11 13:03 | Nephrology Progress Note ---
Assessment/Plan Problem List: (1) Renal failure (ARF), acute on chronic (2) Hyponatremia (3) Right middle lobe pneumonia (4) Anemia (5) Hypothyroidism Assessment Renal failure ? acute on chronic ? dehydration HypoNatremia with Low Jo likely depletional RML Pneumonia HypoAlbuminemia / Proteinuria Anemia - Low MCV HypoThyroid Plan switch to IV Synthroid Saline IV fluid Monitor lytes Anemia amado Per consultants Subjective ROS Limited/Unobtainable: No Constitutional: Reports: malaise, weakness Objective Objective Last 24 Hour Vital Signs Date Time Temp Pulse Resp B/P (MAP) Pulse Ox O2 Delivery O2 Flow Rate FiO2 09/11/18 09:00 Nasal Cannula 1.0 09/11/18 08:00 97.6 94 16 107/67 (80) 99 09/11/18 04:00 97.7 82 17 105/67 (80) 93 09/11/18 00:00 97.8 79 19 97/59 (72) 97 09/10/18 21:00 Nasal Cannula 1.0 09/10/18 20:00 97.8 71 18 96/65 (75) 97 09/10/18 15:58 98.6 67 18 96/62 (73) 96 09/10/18 13:52 97.3 Intake and Output 09/10/18 09/11/18 19:00 07:00 Intake Total 1135 ml 570 ml Output Total 180 ml 450 ml Balance 955 ml 120 ml Intake Oral 920 ml 240 ml IV Total 215 ml 330 ml Output Urine Total 180 ml 450 ml # Voids 1 2 Laboratory Tests 09/10/18 17:25: Reticulocyte Count 0.6, Sickle Cell Screen [Pending], Fibrinogen 967H, Total Bilirubin 0.6, Direct Bilirubin 0.3, Total Protein (PEP) [Pending], Albumin (PEP ) [Pending], Globulin (PEP) [Pending], Albumin/Globulin Ratio [Pending], Alpha-1 -Globulins [Pending], Grrat-8-Hlbjbqfxy [Pending], Beta Globulins [Pending], Beta Gamma Globulin [Pending], PEP Abnormal Protein Bands [Pending], Protein Electrophoresis Interpret [Pending], HIV (1&2) Antibody Rapid Negative 09/11/18 05:00: Total Bilirubin 0.4, Albumin/Globulin Ratio 0.3L, White Blood Count 15.2H, Red Blood Count 3.43L, Hemoglobin 8.3L, Hematocrit 26.0L, Mean Corpuscular Volume 76L, Mean Corpuscular Hemoglobin 24.2L, Mean Corpuscular Hemoglobin Concent 31.9L, Red Cell Distribution Width 16.6H, Platelet Count 182, Mean Platelet Volume 6.4L, Neutrophils (%) (Auto) , Lymphocytes (%) (Auto) , Monocytes (%) ( Auto) , Eosinophils (%) (Auto) , Basophils (%) (Auto) , Differential Total Cells Counted 100, Neutrophils % (Manual) 88H, Lymphocytes % (Manual) 3L, Monocytes % (Manual) 9, Eosinophils % (Manual) 0, Basophils % (Manual) 0, Band Neutrophils 0, Platelet Estimate Adequate, Platelet Morphology Normal, Anisocytosis 1+, Microcytosis 1+, Sodium Level 129L, Potassium Level 4.0, Chloride Level 95L, Carbon Dioxide Level 27, Anion Gap 7, Blood Urea Nitrogen 32H, Creatinine 2.0H, Estimat Glomerular Filtration Rate 34.5, Glucose Level 118H, Hemoglobin A1c 6.4H, Lactic Acid Level 1.10, Uric Acid 9.1H, Calcium Level 9.5, Phosphorus Level 2.8, Magnesium Level 2.0, Iron Level 12L, Total Iron Binding Capacity 105L, Percent Iron Saturation 11L, Unsaturated Iron Binding 93L, Ferritin 1817H, Gamma Glutamyl Transpeptidase 120H, Aspartate Amino Transf (AST/SGOT) 41H, Alanine Aminotransferase (ALT/SGPT) 22, Alkaline Phosphatase 151H, Troponin I 0.000, C-Reactive Protein, Quantitative 26.7H, Pro- B-Type Natriuretic Peptide 1269H, Total Protein 6.9, Albumin 1.5L, Globulin 5.4 , Triglycerides Level 107, Cholesterol Level 121, LDL Cholesterol 67, HDL Cholesterol 19L, Cholesterol/HDL Ratio 6.4H, Vitamin B12 Level 910, Folate 3.5L , Thyroid Stimulating Hormone (TSH) 43.734H, Free Thyroxine 0.34L, Free Triiodothyronine < 0.5L, Cortisol AM Sample [Pending], Random Vancomycin Level 8.6 Height (Feet): 5 Height (Inches): 7.00 Weight (Pounds): 160 General Appearance: no apparent distress Objective no change Marcin Pham MD September 11, 2018 13:03
--- NOTE | 2018-09-11 13:58 | NUR ---
NURSE NOTES: Pt refused lunch stated food was too spicy. Substitute provided rohit brody jello, and chicken broth given. Pt states he does not have a appetite
--- NOTE | 2018-09-11 14:41 | NUR ---
NURSE NOTES: Pt refused respiratory therapy
--- NOTE | 2018-09-11 14:41 | Cardiology Report ---
APPROVED REPORT EKG Measurement Heart [id number] Normal sinus rhythm Normal ECG
--- NOTE | 2018-09-11 15:15 | Consultation ---
History of Present Illness General Date patient seen: September 11, 2018 Chief Complaint: Back Pain-No Injury Reason for Consultation: copd, lung cancer Present Illness HPI 58 year old male with hx of smoking, emphysema, lung cancer with cerebellar mets , with recent RT, brought in by paramedics with CC of back pain which was constant and rated 7/10 and stabbing. Somewhat pleuritic and positional. He has an oncologist at [facility]. He also c/o cough and his phlegm is yellow in color at times. There is no blood. He is admitted for further work up. Allergies: Coded Allergies: No Known Allergies (Unverified , 05/02/18) Medication History Scheduled Albuterol Sulfate* (Albuterol Sulfate Mdi*), 2 PUFF INH Q4H, (Reported) Levothyroxine Sodium (Synthroid), 137 MCG ORAL DAILY, (Reported) Multivitamin With Minerals (Multivitamins With Minerals*), 1 TAB ORAL DAILY, ( Reported) Miscellaneous Medications Fluticasone/Vilanterol (Breo Ellipta 100-25 Mcg INH), 1 EACH IH, (Reported) Glucosamine Sulfate 2KCL (Glucosamine), 1,000 MG PO, (Reported) Patient History Healthcare decision maker Resuscitation status Full Code Advanced Directive on File Past Medical/Surgical History Past Medical/Surgical History: (1) Hypothyroidism (2) Bone metastases (3) Hyponatremia Review of Systems All Other Systems: negative except mentioned in HPI Physical Exam General Appearance: WD/WN, no apparent distress Lines, tubes and drains: peripheral HEENT: normocephalic, atraumatic Neck: non-tender, normal alignment, supple Respiratory/Chest: chest wall non-tender, lungs clear, no respiratory distress Breasts: no masses Cardiovascular/Chest: normal rate Abdomen: normal bowel sounds, soft Genitourinary/Rectal: normal genital exam Extremities: normal range of motion Last 24 Hour Vital Signs Date Time Temp Pulse Resp B/P (MAP) Pulse Ox O2 Delivery O2 Flow Rate FiO2 09/11/18 12:00 98.2 89 17 140/71 (94) 09/11/18 09:00 Nasal Cannula 1.0 09/11/18 08:00 97.6 94 16 107/67 (80) 99 09/11/18 04:00 97.7 82 17 105/67 (80) 93 09/11/18 00:00 97.8 79 19 97/59 (72) 97 09/10/18 21:00 Nasal Cannula 1.0 09/10/18 20:00 97.8 71 18 96/65 (75) 97 09/10/18 15:58 98.6 67 18 96/62 (73) 96 Intake and Output 09/10/18 09/11/18 18:59 06:59 Intake Total 1105 ml 600 ml Output Total 180 ml 450 ml Balance 925 ml 150 ml Intake Oral 920 ml 240 ml IV Total 185 ml 360 ml Output Urine Total 180 ml 450 ml # Voids 1 2 Laboratory Tests Test 09/10/18 17:25 09/11/18 05:00 Reticulocyte Count 0.6 % (0.5-2.0) Sickle Cell Screen Pending Fibrinogen 967 mg/dL (200-400) H Total Bilirubin 0.6 MG/DL (0.2-1.0) 0.4 MG/DL (0.2-1.0) Direct Bilirubin 0.3 MG/DL (0.0-0.3) Total Protein (PEP) Pending Albumin (PEP) Pending Globulin (PEP) Pending Albumin/Globulin Ratio Pending 0.3 (1.0-2.7) L Edijs-2-Bjlywfrxp Pending Tawoz-5-Qhladcnsr Pending Beta Globulins Pending Beta Gamma Globulin Pending PEP Abnormal Protein Bands Pending Protein Electrophoresis Interpret Pending HIV (1&2) Antibody Rapid Negative (NEGATIVE) White Blood Count 15.2 K/UL (4.8-10.8) H Red Blood Count 3.43 M/UL (4.70-6.10) L Hemoglobin 8.3 G/DL (14.2-18.0) L Hematocrit 26.0 % (42.0-52.0) L Mean Corpuscular Volume 76 FL (80-99) L Mean Corpuscular Hemoglobin 24.2 PG (27.0-31.0) L Mean Corpuscular Hemoglobin Concent 31.9 G/DL (32.0-36.0) L Red Cell Distribution Width 16.6 % (11.6-14.8) H Platelet Count 182 K/UL (150-450) Mean Platelet Volume 6.4 FL (6.5-10.1) L Neutrophils (%) (Auto) % (45.0-75.0) Lymphocytes (%) (Auto) % (20.0-45.0) Monocytes (%) (Auto) % (1.0-10.0) Eosinophils (%) (Auto) % (0.0-3.0) Basophils (%) (Auto) % (0.0-2.0) Differential Total Cells Counted 100 Neutrophils % (Manual) 88 % (45-75) H Lymphocytes % (Manual) 3 % (20-45) L Monocytes % (Manual) 9 % (1-10) Eosinophils % (Manual) 0 % (0-3) Basophils % (Manual) 0 % (0-2) Band Neutrophils 0 % (0-8) Platelet Estimate Adequate Platelet Morphology Normal Anisocytosis 1+ Microcytosis 1+ Sodium Level 129 MMOL/L (136-145) L Potassium Level 4.0 MMOL/L (3.5-5.1) Chloride Level 95 MMOL/L (98-107) L Carbon Dioxide Level 27 MMOL/L (21-32) Anion Gap 7 mmol/L (5-15) Blood Urea Nitrogen 32 mg/dL (7-18) H Creatinine 2.0 MG/DL (0.55-1.30) H Estimat Glomerular Filtration Rate 34.5 mL/min (>60) Glucose Level 118 MG/DL (74-106) H Hemoglobin A1c 6.4 % (4.3-6.0) H Lactic Acid Level 1.10 mmol/L (0.4-2.0) Uric Acid 9.1 MG/DL (2.6-7.2) H Calcium Level 9.5 MG/DL (8.5-10.1) Phosphorus Level 2.8 MG/DL (2.5-4.9) Magnesium Level 2.0 MG/DL (1.8-2.4) Iron Level 12 ug/dL (50-175) L Total Iron Binding Capacity 105 ug/dL (250-450) L Percent Iron Saturation 11 % (15-50) L Unsaturated Iron Binding 93 ug/dL (112-346) L Ferritin 1817 NG/ML (8-388) H Gamma Glutamyl Transpeptidase 120 U/L (5-85) H Aspartate Amino Transf (AST/SGOT) 41 U/L (15-37) H Alanine Aminotransferase (ALT/SGPT) 22 U/L (12-78) Alkaline Phosphatase 151 U/L (46-116) H Troponin I 0.000 ng/mL (0.000-0.056) C-Reactive Protein, Quantitative 26.7 mg/dL (0.00-0.90) H Pro-B-Type Natriuretic Peptide 1269 pg/mL (0-125) H Total Protein 6.9 G/DL (6.4-8.2) Albumin 1.5 G/DL (3.4-5.0) L Globulin 5.4 g/dL Triglycerides Level 107 MG/DL (30-150) Cholesterol Level 121 MG/DL (< 200) LDL Cholesterol 67 mg/dL (<100) HDL Cholesterol 19 MG/DL (40-60) L Cholesterol/HDL Ratio 6.4 (3.3-4.4) H Vitamin B12 Level 910 PG/ML (193-986) Folate 3.5 NG/ML (8.6-58.9) L Thyroid Stimulating Hormone (TSH) 43.734 uiU/mL (0.358-3.740) Free Thyroxine 0.34 NG/DL (0.76-1.46) L Free Triiodothyronine < 0.5 pg/mL (2.3-4.2) L Cortisol AM Sample Pending Random Vancomycin Level 8.6 ug/mL Height (Feet): 5 Height (Inches): 7.00 Weight (Pounds): 160 Medications Current Medications Medications (Trade) Dose Ordered Sig/John Route PRN Reason Start Time Stop Time Status Last Admin Dose Admin Acetaminophen (Tylenol) 650 mg Q4H PRN ORAL fever 09/10/18 09:45 10/10/18 09:44 Albuterol/ Ipratropium (Albuterol/ Ipratropium) 3 ml Q4H PRN HHN Shortness of Breath 09/10/18 09:45 09/15/18 09:44 Cefepime HCl 2 gm/ Dextrose 110 ml @ 220 mls/hr Q24H IV 09/10/18 12:00 09/17/18 11:59 09/11/18 12:42 Dextrose (Dextrose 50%) 25 ml Q30M PRN IV Hypoglycemia 09/10/18 09:45 10/10/18 09:44 Dextrose (Dextrose 50%) 50 ml Q30M PRN IV Hypoglycemia 09/10/18 09:45 10/10/18 09:44 Dextrose/Sodium Chloride 1,000 ml @ 100 mls/hr Q10H IV 09/11/18 14:00 10/11/18 13:59 Heparin Sodium (Porcine) (Heparin 5000 units/ml) 5,000 units EVERY 12 HOURS SUBQ 09/10/18 21:00 10/10/18 20:59 09/11/18 09:21 Levothyroxine Sodium (Synthroid) 100 mcg DAILY IV 09/11/18 09:00 10/11/18 08:59 09/11/18 09:19 Morphine Sulfate (Morphine Sulfate) 2 mg Q4H PRN IVP Severe Pain (Pain Scale 7-10) 09/10/18 09:45 09/17/18 09:44 09/10/18 23:12 Nitroglycerin (Ntg) 0.4 mg Q5M PRN SL Prn Chest Pain 09/10/18 09:45 10/10/18 09:44 Ondansetron HCl (Zofran) 4 mg Q6H PRN IVP Nausea & Vomiting 09/10/18 09:45 10/10/18 09:44 09/11/18 01:47 Pantoprazole (Protonix) 40 mg DAILY ORAL 09/10/18 14:30 10/10/18 14:29 09/11/18 09:20 Polyethylene Glycol (Miralax) 17 gm DAILYPRN PRN ORAL Constipation 09/10/18 09:45 10/10/18 09:44 09/10/18 13:29 Promethazine HCl/ Codeine (Phenergan with Codeine) 5 ml Q4H PRN ORAL For Cough 09/10/18 09:45 10/10/18 09:44 Temazepam (Restoril) 15 mg HSPRN PRN ORAL Insomnia 09/10/18 09:45 09/17/18 09:44 Vancomycin HCl (Vanco rx to dose) 1 ea DAILY PRN MISC Per rx protocol 09/10/18 09:45 10/10/18 09:44 Assessment/Plan Problem List: (1) PNEUMONIA (2) Bone metastases ICD Codes: C79.51 - Secondary malignant neoplasm of bone SNOMED: 77113319 (3) Hyponatremia ICD Codes: E87.1 - Hypo-osmolality and hyponatremia SNOMED: 67957622 (4) Malnutrition ICD Codes: E46 - Unspecified protein-calorie malnutrition SNOMED: 83401192 (5) Hypothyroidism ICD Codes: E03.9 - Hypothyroidism, unspecified SNOMED: 27142734 (6) Lung cancer metastatic to bone ICD Codes: C34.90 - Malignant neoplasm of unspecified part of unspecified bronchus or lung; C79.51 - Secondary malignant neoplasm of bone SNOMED: 29571259, 38618793 (7) Emphysema of lung ICD Codes: J43.9 - Emphysema, unspecified SNOMED: 85585933 Assessment/Plan: check sputum iv abx check records from [facility] pain management [facility] for radiculopathy Marybel Mcmanus MD September 11, 2018 15:15
[2018-09-11 16:00] VITALS: BP 111/65
[2018-09-11] MEDS: D5NS 1,000 ML IV SCH (16:00)
--- NOTE | 2018-09-11 18:18 | NUR ---
NURSE NOTES: pt sleeping has refused all meals. Provided with substitute, of chicken broth, gingerale , drank merely the fluids. Assisted with urinating had difficulty starting a stream. Skin very dry, skin care and moisturizing rendered. Assisted several times to restroom. IV patent fluids running
--- NOTE | 2018-09-11 18:24 | NUR ---
NURSE NOTES: Dr Shankar called to inform him of Cortisol results. Verbal Message left with answering service
--- NOTE | 2018-09-11 19:30 | NUR ---
NURSE NOTES: Received report from ROLF Morataya.
[2018-09-11 20:00] VITALS: BP 113/73
--- NOTE | 2018-09-11 20:08 | NUR ---
HAND-OFF: Report given to Ramila BANSAL.
--- NOTE | 2018-09-11 20:30 | NUR ---
NURSE NOTES: Patient alert, oriented x4 but forgetful, distractible. IV intact, patent. Bed in low position, locked, side rails up x3. Call light within reach. Encouraged to call nurse as needed. Patient needs assistance to get oob to use urinal, expresses frustration in having to be assisted out of bed and often forgets to call for help. Bed alarm on. Skin very dry, flaky. Partial linen change. Pt didn't eat much today, low appetite. Drinking water, tolerating fluids. No heartburn or nausea today. Will continue to monitor.
[2018-09-11] MEDS: Morphine Sulfate 2mg/ml Inj(IV/IM USE ONLY) IVP PRN (20:46)
[2018-09-12] VITALS: BP 110/63
[2018-09-12] MEDS: D5NS 1,000 ML IV SCH ×3 (02:00→20:07)
[2018-09-12] MEDS: Morphine Sulfate 2mg/ml Inj(IV/IM USE ONLY) IVP PRN ×3 (02:35→12:53)
[2018-09-12 04:00] VITALS: BP 117/70
[2018-09-12 06:26] LABS: HEMATOCRIT 28.8 % (42.0-52.0); MEAN CORPUSCULAR VOLUME 77 FL (80-99); PLATELET COUNT 159 K/UL (150-450); RED BLOOD COUNT 3.76 M/UL (4.70-6.10); RED CELL DISTRIBUTION WIDTH 17.1 % (11.6-14.8); WHITE BLOOD COUNT 13.9 K/UL (4.8-10.8)
[2018-09-12 07:17] LABS: ALANINE AMINOTRANSFERASE 28 U/L (12-78); ALBUMIN 1.6 G/DL (3.4-5.0); ALBUMIN/GLOBULIN RATIO 0.3 (1.0-2.7); ALKALINE PHOSPHATASE 178 U/L (46-116); ANION GAP 9 mmol/L (5-15); ASPARTATE AMINO TRANSFERASE 48 U/L (15-37); BILIRUBIN,TOTAL 0.7 MG/DL (0.2-1.0); BLOOD UREA NITROGEN 21 mg/dL (7-18); CALCIUM 9.9 MG/DL (8.5-10.1); CARBON DIOXIDE 24 MMOL/L (21-32); CHLORIDE 97 MMOL/L (98-107); CREATININE 1.8 MG/DL (0.55-1.30); POTASSIUM 4.4 MMOL/L (3.5-5.1); SODIUM 130 MMOL/L (136-145)
--- NOTE | 2018-09-12 07:30 | NUR ---
NURSE NOTES: Patient is in bed awake and able to verbalize needs. Patient is stable. Denies pain at this time. Patient encouraged to use call light for assistance, verbalized understanding. Patient is in bed in locked and lowest position with call light within reach. Will continue to monitor.
--- NOTE | 2018-09-12 07:30 | NUR ---
HAND-OFF: Report given to ROLF Cary.
[2018-09-12 08:00] VITALS: BP 115/71
--- NOTE | 2018-09-12 08:39 | NUR ---
P.T Note: P.T evaluation completed and tx initiated. Please refer to P.T evaluation for current functional status. Pt is alert, O to self , place, time and situation. Pt also also apologized and stated his thinking is little "off" today. Pt reports c/o pain in the mid lower back /10 aggravated by movement and certain position and also generalized weakness. Pt currently requires MIN A X 1 for bed mobility , transfers and gait/ambulation activities using the FWW. Pt presented overall poor activity tolerance. Skilled P.T service is warranted to improve his strength and activity tolerance to increase his mobility independence and safety. Recommend either SNF for short term rehab or home P.T. DME to include FWW. Pt is cleared for OOB activities with nursing assist. Thank you for this referral.
[2018-09-12] MEDS: Heparin 5000 units/ml inj SUBQ SCH ×2 (08:40→20:36)
[2018-09-12] MEDS ORDERED: Phospha 250 Neutral tab ORAL SCH (09:45)
--- NOTE | 2018-09-12 11:43 | NUR ---
RD ASSESSMENT & RECOMMENDATIONS SEE CARE ACTIVITY FOR COMPLETE ASSESSMENT DAILY ESTIMATED NEEDS: Needs based on CA, wt loss/ 61kg 30-35 kcals/kg 5024-9958 total kcals 1-1.5 g protein/kg 61-92 g total protein 25-30 mL/kg 4701-9088 total fluid mLs NUTRITION DIAGNOSIS: Increased kcal/prot needs R/T catabolic dx, progressive wt loss as evidenced by metastatic lung CA to bones, cerebellar mass (R of midline) and R hilar mass in chest, pt reports progressive wt loss, unable to quantify amount at this time. CURRENT DIET:REGULAR PO DIET RECOMMENDATIONS: BLAND, REGULAR/ texture as tolerated ADDITIONAL RECOMMENDATIONS: * Calibrated bedscale wt or standing wt for accurate CBW * Weekly wt monitoring given h/o wt loss * Rec small, frequent meals * Consider appetite stimulant for poor PO * Rec Ensure CLEAR TID w/ meals (Rec clear vs enlive at this time for c/o nausea, better tolerance) * Monitor lytes, replete as needed Addendum: 09/12/18 at [address] Pt is currently NPO for lung biopsy. Addendum: 09/13/18 at [address] Rec to add Ensure Enlive TID w/ meals once diet resumes after a procedure. ( Pt denies nausea at this time, requesting Ensure Enlive TID w/ meals )
[2018-09-12 12:00] VITALS: BP 119/73
--- NOTE | 2018-09-12 12:03 | Pulmonology Progress Note ---
Assessment/Plan Problems: (1) PNEUMONIA (2) Bone metastases (3) Hyponatremia (4) Malnutrition (5) Hypothyroidism (6) Lung cancer metastatic to bone (7) Emphysema of lung Assessment/Plan check sputum iv abx symptomatic treatment check records from [facility] pain management [facility] for radiculopathy f/u oncology recommendations consider comfort care. Subjective ROS Limited/Unobtainable: No Constitutional: Reports: no symptoms HEENT: Repors: no symptoms Respiratory: Reports: no symptoms Allergies: Coded Allergies: No Known Allergies (Unverified , 05/02/18) Objective Last 24 Hour Vital Signs Date Time Temp Pulse Resp B/P (MAP) Pulse Ox O2 Delivery O2 Flow Rate FiO2 09/12/18 09:00 Nasal Cannula 1.0 09/12/18 08:00 97.3 87 20 115/71 (86) 99 09/12/18 04:00 97.6 82 16 117/70 (86) 95 09/12/18 00:00 97.9 87 16 110/63 (79) 95 09/11/18 21:00 Nasal Cannula 1.0 09/11/18 20:00 98.7 87 16 113/73 (86) 97 09/11/18 16:00 98.0 82 18 111/65 (80) Intake and Output 09/11/18 09/12/18 19:00 07:00 Intake Total 410 ml 1340 ml Output Total 1100 ml Balance 410 ml 240 ml Intake Oral 240 ml IV Total 410 ml 1100 ml Output Urine Total 1100 ml # Voids 6 General Appearance: WD/WN HEENT: normocephalic Respiratory/Chest: chest wall non-tender, lungs clear Cardiovascular: normal peripheral pulses, normal rate, regular rhythm Abdomen: normal bowel sounds, soft, non tender Genitourinary: normal external genitalia Extremities: no cyanosis Neurologic/Psychiatric: 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 II-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 grossly normal Microbiology Date/Time Source Procedure Growth Status 09/10/18 08:00 Blood Blood Culture - Preliminary NO GROWTH AFTER 24 HOURS Resulted 09/10/18 08:00 Blood Blood Culture - Preliminary NO GROWTH AFTER 24 HOURS Resulted 09/11/18 02:00 Sputum Expectorated Gram Stain - Final Resulted 09/11/18 02:00 Sputum Expectorated Sputum Culture - Preliminary NORMAL UPPER RESPIRATORY REA PRESENT Resulted Laboratory Tests 09/12/18 05:56: White Blood Count 13.9H, Red Blood Count 3.76L, Hemoglobin 9.0L, Hematocrit 28.8L, Mean Corpuscular Volume 77L, Mean Corpuscular Hemoglobin 23.9L, Mean Corpuscular Hemoglobin Concent 31.2L, Red Cell Distribution Width 17.1H, Platelet Count 159, Mean Platelet Volume 9.3, Neutrophils (%) (Auto) , Lymphocytes (%) (Auto) , Monocytes (%) (Auto) , Eosinophils (%) (Auto) , Basophils (%) (Auto) , Differential Total Cells Counted 100, Neutrophils % ( Manual) 90H, Lymphocytes % (Manual) 3L, Monocytes % (Manual) 7, Eosinophils % ( Manual) 0, Basophils % (Manual) 0, Band Neutrophils 0, Platelet Estimate Adequate, Platelet Morphology , Clumped Platelets Occasional, Hypochromasia 1+, Anisocytosis 1+, Microcytosis 1+, Sodium Level 130L, Potassium Level 4.4, Chloride Level 97L, Carbon Dioxide Level 24, Anion Gap 9, Blood Urea Nitrogen 21H, Creatinine 1.8H, Estimat Glomerular Filtration Rate 38.9, Glucose Level 155H, Uric Acid 8.4H, Calcium Level 9.9, Phosphorus Level 2.0L, Magnesium Level 1.9, Total Bilirubin 0.7, Aspartate Amino Transf (AST/SGOT) 48H, Alanine Aminotransferase (ALT/SGPT) 28, Alkaline Phosphatase 178H, Total Protein 7.6, Albumin 1.6L, Globulin 6.0, Albumin/Globulin Ratio 0.3L Current Medications Medications (Trade) Dose Ordered Sig/John Route PRN Reason Start Time Stop Time Status Last Admin Dose Admin Acetaminophen (Tylenol) 650 mg Q4H PRN ORAL fever 09/10/18 09:45 10/10/18 09:44 Albuterol/ Ipratropium (Albuterol/ Ipratropium) 3 ml Q4H PRN HHN Shortness of Breath 09/10/18 09:45 09/15/18 09:44 Cefepime HCl 2 gm/ Dextrose 110 ml @ 220 mls/hr Q24H IV 09/10/18 12:00 09/17/18 11:59 09/11/18 12:42 Dextrose (Dextrose 50%) 25 ml Q30M PRN IV Hypoglycemia 09/10/18 09:45 10/10/18 09:44 Dextrose (Dextrose 50%) 50 ml Q30M PRN IV Hypoglycemia 09/10/18 09:45 10/10/18 09:44 Dextrose/Sodium Chloride 1,000 ml @ 100 mls/hr Q10H IV 09/11/18 14:00 10/11/18 13:59 09/12/18 10:06 Heparin Sodium (Porcine) (Heparin 5000 units/ml) 5,000 units EVERY 12 HOURS SUBQ 09/10/18 21:00 10/10/18 20:59 09/12/18 08:40 Levothyroxine Sodium (Synthroid) 100 mcg DAILY IV 09/11/18 09:00 10/11/18 08:59 09/12/18 08:38 Morphine Sulfate (Morphine Sulfate) 2 mg Q4H PRN IVP Severe Pain (Pain Scale 7-10) 09/10/18 09:45 09/17/18 09:44 09/12/18 08:38 Nitroglycerin (Ntg) 0.4 mg Q5M PRN SL Prn Chest Pain 09/10/18 09:45 10/10/18 09:44 Ondansetron HCl (Zofran) 4 mg Q6H PRN IVP Nausea & Vomiting 09/10/18 09:45 10/10/18 09:44 09/11/18 01:47 Pantoprazole (Protonix) 40 mg DAILY ORAL 09/10/18 14:30 10/10/18 14:29 09/12/18 08:38 Polyethylene Glycol (Miralax) 17 gm DAILYPRN PRN ORAL Constipation 09/10/18 09:45 10/10/18 09:44 09/10/18 13:29 Promethazine HCl/ Codeine (Phenergan with Codeine) 5 ml Q4H PRN ORAL For Cough 09/10/18 09:45 10/10/18 09:44 Temazepam (Restoril) 15 mg HSPRN PRN ORAL Insomnia 09/10/18 09:45 09/17/18 09:44 Vancomycin HCl (Vanco rx to dose) 1 ea DAILY PRN MISC Per rx protocol 09/10/18 09:45 10/10/18 09:44 Marybel Mcmanus MD September 12, 2018 12:03
--- NOTE | 2018-09-12 12:23 | General Progress Note ---
Assessment/Plan Problem List: (1) Anemia ICD Codes: D64.9 - Anemia, unspecified SNOMED: 771764389 (2) Malnutrition ICD Codes: E46 - Unspecified protein-calorie malnutrition SNOMED: 60504442 (3) Sepsis ICD Codes: A41.9 - Sepsis, unspecified organism SNOMED: 81311498 (4) Right middle lobe pneumonia ICD Codes: J18.1 - Lobar pneumonia, unspecified organism SNOMED: 758487423 Qualifiers: Qualified Codes: J18.1 - Lobar pneumonia, unspecified organism (5) Hyponatremia ICD Codes: E87.1 - Hypo-osmolality and hyponatremia SNOMED: 62908813 (6) Renal failure ICD Codes: N19 - Unspecified kidney failure SNOMED: 62072612 Qualifiers: Qualified Codes: N17.9 - Acute kidney failure, unspecified (7) Bone metastases ICD Codes: C79.51 - Secondary malignant neoplasm of bone SNOMED: 82558071 Status: unchanged Assessment/Plan: o2 pulm tx abx pt diet cbc bmp am brotman aru eval Subjective Constitutional: Reports: weakness Allergies: Coded Allergies: No Known Allergies (Unverified , 05/02/18) All Systems: reviewed and negative except above Subjective o2nc calm Objective Last 24 Hour Vital Signs Date Time Temp Pulse Resp B/P (MAP) Pulse Ox O2 Delivery O2 Flow Rate FiO2 09/12/18 09:00 Nasal Cannula 1.0 09/12/18 08:00 97.3 87 20 115/71 (86) 99 09/12/18 04:00 97.6 82 16 117/70 (86) 95 09/12/18 00:00 97.9 87 16 110/63 (79) 95 09/11/18 21:00 Nasal Cannula 1.0 09/11/18 20:00 98.7 87 16 113/73 (86) 97 09/11/18 16:00 98.0 82 18 111/65 (80) Intake and Output 09/11/18 09/12/18 19:00 07:00 Intake Total 410 ml 1340 ml Output Total 1100 ml Balance 410 ml 240 ml Intake Oral 240 ml IV Total 410 ml 1100 ml Output Urine Total 1100 ml # Voids 6 Laboratory Tests 09/12/18 05:56: White Blood Count 13.9H, Red Blood Count 3.76L, Hemoglobin 9.0L, Hematocrit 28.8L, Mean Corpuscular Volume 77L, Mean Corpuscular Hemoglobin 23.9L, Mean Corpuscular Hemoglobin Concent 31.2L, Red Cell Distribution Width 17.1H, Platelet Count 159, Mean Platelet Volume 9.3, Neutrophils (%) (Auto) , Lymphocytes (%) (Auto) , Monocytes (%) (Auto) , Eosinophils (%) (Auto) , Basophils (%) (Auto) , Differential Total Cells Counted 100, Neutrophils % ( Manual) 90H, Lymphocytes % (Manual) 3L, Monocytes % (Manual) 7, Eosinophils % ( Manual) 0, Basophils % (Manual) 0, Band Neutrophils 0, Platelet Estimate Adequate, Platelet Morphology , Clumped Platelets Occasional, Hypochromasia 1+, Anisocytosis 1+, Microcytosis 1+, Sodium Level 130L, Potassium Level 4.4, Chloride Level 97L, Carbon Dioxide Level 24, Anion Gap 9, Blood Urea Nitrogen 21H, Creatinine 1.8H, Estimat Glomerular Filtration Rate 38.9, Glucose Level 155H, Uric Acid 8.4H, Calcium Level 9.9, Phosphorus Level 2.0L, Magnesium Level 1.9, Total Bilirubin 0.7, Aspartate Amino Transf (AST/SGOT) 48H, Alanine Aminotransferase (ALT/SGPT) 28, Alkaline Phosphatase 178H, Total Protein 7.6, Albumin 1.6L, Globulin 6.0, Albumin/Globulin Ratio 0.3L Height (Feet): 5 Height (Inches): 7.00 Weight (Pounds): 160 General Appearance: lethargic EENT: normal ENT inspection Neck: normal alignment Cardiovascular: normal peripheral pulses, normal rate, regular rhythm Respiratory/Chest: chest wall non-tender, lungs clear, decreased breath sounds Abdomen: normal bowel sounds, non tender, soft Extremities: normal inspection Edema: no edema noted Arm (L), no edema noted Arm (R), no edema noted Leg (L), no edema noted Leg (R), no edema noted Pedal (L), no edema noted Pedal (R), no edema noted Generalized Neurologic: responsive, motor weakness Skin: normal pigmentation, warm/dry GiovanniMarky CjZoe September 12, 2018 12:22
[2018-09-12] MEDS: Cefepime HCl 2 GM in D5W 110 ML IV SCH (12:32)
--- NOTE | 2018-09-12 13:00 | NUR ---
NURSE NOTES: Patient is unable to have swallow eval done because he is NPO for a procedure. Speech therapist aware.
--- NOTE | 2018-09-12 13:08 | Infectious Diseases Prog Note ---
Assessment/Plan Assessment/Plan ASSESSMENT: The patient is a 58-year-old male with: 1. History of lung cancer. 2. History of brain cancer, brain tumor, status post surgery who has now leukocytosis.; Leukocytosis improvng 3. Possible postobstructive pneumonia. -CT chest: 1. Interval enlargement of the right lower lobe/infrahilar mass , now measuring 5.9 x 5.9 x 5.0 cm, with extensive adjacent satellite nodularity , indicative of progression of malignancy. Associated occlusion of the right lower lobe bronchus, likely postobstructive.2. Interval enlargement of the right paravertebral mass adjacent to the medial right lower lobe, now measuring at least 4.9 x 4.9 x 4.0 cm, and eroding into/invading the adjacent 7th, 8th, and 9th thoracic vertebral bodies.3. New anterior compression deformities of T7 (80% height loss) and T8 ( 50% height loss), likely pathologic fractures.4. Interval enlargement of innumerable bilateral pulmonary metastatic nodules. 4. Afebrile. 5. T7 +T8 pathologic fractures PLAN: 1. We will continue the patient on cefepime #3/7 for PNA Dc/ empiric vancomycin #3 -09/10 SP IV Zosyn x1 2. CBC and BMP. 3. Monitor cultures (blood, sputum). 4. Heme onc f/u 5. Follow nephrology recommendation regarding renal insufficiency. 6. Based on the patient's clinical course and labs, we will do further recommendations. Thank you, Dr. Marky Davila for allowing me to participate in the care of this patient. I will follow the patient with you during this hospitalization. Subjective Allergies: Coded Allergies: No Known Allergies (Unverified , 05/02/18) Subjective afebrile wbc improving Objective Vital Signs Last 24 Hour Vital Signs Date Time Temp Pulse Resp B/P (MAP) Pulse Ox O2 Delivery O2 Flow Rate FiO2 09/12/18 12:00 98.2 62 20 119/73 (88) 97 09/12/18 09:00 Nasal Cannula 1.0 09/12/18 08:00 97.3 87 20 115/71 (86) 99 09/12/18 04:00 97.6 82 16 117/70 (86) 95 09/12/18 00:00 97.9 87 16 110/63 (79) 95 09/11/18 21:00 Nasal Cannula 1.0 09/11/18 20:00 98.7 87 16 113/73 (86) 97 09/11/18 16:00 98.0 82 18 111/65 (80) Height (Feet): 5 Height (Inches): 7.00 Weight (Pounds): 160 Objective HEENT: No pale conjunctivae. No scleral icterus. NECK: No lymphadenopathy. CHEST: Coarse breathing sounds. HEART: S1 and S2. ABDOMEN: Soft. EXTREMITIES: No cyanosis at this time. NEUROLOGIC: Awake. Microbiology Date/Time Source Procedure Growth Status 09/10/18 08:00 Blood Blood Culture - Preliminary NO GROWTH AFTER 24 HOURS Resulted 09/10/18 08:00 Blood Blood Culture - Preliminary NO GROWTH AFTER 24 HOURS Resulted 09/11/18 02:00 Sputum Expectorated Gram Stain - Final Resulted 09/11/18 02:00 Sputum Expectorated Sputum Culture - Preliminary NORMAL UPPER RESPIRATORY REA PRESENT Resulted Laboratory Tests Test 09/12/18 05:56 White Blood Count 13.9 K/UL (4.8-10.8) H Red Blood Count 3.76 M/UL (4.70-6.10) L Hemoglobin 9.0 G/DL (14.2-18.0) L Hematocrit 28.8 % (42.0-52.0) L Mean Corpuscular Volume 77 FL (80-99) L Mean Corpuscular Hemoglobin 23.9 PG (27.0-31.0) L Mean Corpuscular Hemoglobin Concent 31.2 G/DL (32.0-36.0) L Red Cell Distribution Width 17.1 % (11.6-14.8) H Platelet Count 159 K/UL (150-450) Mean Platelet Volume 9.3 FL (6.5-10.1) Neutrophils (%) (Auto) % (45.0-75.0) Lymphocytes (%) (Auto) % (20.0-45.0) Monocytes (%) (Auto) % (1.0-10.0) Eosinophils (%) (Auto) % (0.0-3.0) Basophils (%) (Auto) % (0.0-2.0) Differential Total Cells Counted 100 Neutrophils % (Manual) 90 % (45-75) H Lymphocytes % (Manual) 3 % (20-45) L Monocytes % (Manual) 7 % (1-10) Eosinophils % (Manual) 0 % (0-3) Basophils % (Manual) 0 % (0-2) Band Neutrophils 0 % (0-8) Platelet Estimate Adequate Platelet Morphology Clumped Platelets Occasional Hypochromasia 1+ Anisocytosis 1+ Microcytosis 1+ Sodium Level 130 MMOL/L (136-145) L Potassium Level 4.4 MMOL/L (3.5-5.1) Chloride Level 97 MMOL/L (98-107) L Carbon Dioxide Level 24 MMOL/L (21-32) Anion Gap 9 mmol/L (5-15) Blood Urea Nitrogen 21 mg/dL (7-18) H Creatinine 1.8 MG/DL (0.55-1.30) H Estimat Glomerular Filtration Rate 38.9 mL/min (>60) Glucose Level 155 MG/DL (74-106) H Uric Acid 8.4 MG/DL (2.6-7.2) H Calcium Level 9.9 MG/DL (8.5-10.1) Phosphorus Level 2.0 MG/DL (2.5-4.9) L Magnesium Level 1.9 MG/DL (1.8-2.4) Total Bilirubin 0.7 MG/DL (0.2-1.0) Aspartate Amino Transf (AST/SGOT) 48 U/L (15-37) H Alanine Aminotransferase (ALT/SGPT) 28 U/L (12-78) Alkaline Phosphatase 178 U/L (46-116) H Total Protein 7.6 G/DL (6.4-8.2) Albumin 1.6 G/DL (3.4-5.0) L Globulin 6.0 g/dL Albumin/Globulin Ratio 0.3 (1.0-2.7) L Current Medications Medications (Trade) Dose Ordered Sig/John Route PRN Reason Start Time Stop Time Status Last Admin Dose Admin Acetaminophen (Tylenol) 650 mg Q4H PRN ORAL fever 09/10/18 09:45 10/10/18 09:44 Albuterol/ Ipratropium (Albuterol/ Ipratropium) 3 ml Q4H PRN HHN Shortness of Breath 09/10/18 09:45 09/15/18 09:44 Cefepime HCl 2 gm/ Dextrose 110 ml @ 220 mls/hr Q24H IV 09/10/18 12:00 09/17/18 11:59 09/12/18 12:32 Dextrose (Dextrose 50%) 25 ml Q30M PRN IV Hypoglycemia 09/10/18 09:45 10/10/18 09:44 Dextrose (Dextrose 50%) 50 ml Q30M PRN IV Hypoglycemia 09/10/18 09:45 10/10/18 09:44 Dextrose/Sodium Chloride 1,000 ml @ 100 mls/hr Q10H IV 09/11/18 14:00 10/11/18 13:59 09/12/18 10:06 Heparin Sodium (Porcine) (Heparin 5000 units/ml) 5,000 units EVERY 12 HOURS SUBQ 09/10/18 21:00 10/10/18 20:59 09/12/18 08:40 Levothyroxine Sodium (Synthroid) 100 mcg DAILY IV 09/11/18 09:00 10/11/18 08:59 09/12/18 08:38 Morphine Sulfate (Morphine Sulfate) 2 mg Q4H PRN IVP Severe Pain (Pain Scale 7-10) 09/10/18 09:45 09/17/18 09:44 09/12/18 12:53 Nitroglycerin (Ntg) 0.4 mg Q5M PRN SL Prn Chest Pain 09/10/18 09:45 10/10/18 09:44 Ondansetron HCl (Zofran) 4 mg Q6H PRN IVP Nausea & Vomiting 09/10/18 09:45 10/10/18 09:44 09/11/18 01:47 Pantoprazole (Protonix) 40 mg DAILY ORAL 09/10/18 14:30 10/10/18 14:29 09/12/18 08:38 Polyethylene Glycol (Miralax) 17 gm DAILYPRN PRN ORAL Constipation 09/10/18 09:45 10/10/18 09:44 09/10/18 13:29 Promethazine HCl/ Codeine (Phenergan with Codeine) 5 ml Q4H PRN ORAL For Cough 09/10/18 09:45 10/10/18 09:44 Temazepam (Restoril) 15 mg HSPRN PRN ORAL Insomnia 09/10/18 09:45 09/17/18 09:44 Vancomycin HCl (Vanco rx to dose) 1 ea DAILY PRN MISC Per rx protocol 09/10/18 09:45 10/10/18 09:44 Kalie House M.D. September 12, 2018 13:08
--- NOTE | 2018-09-12 13:43 | NUR ---
NURSE NOTES: Lung biopsy rescheduled for tomorrow.
--- NOTE | 2018-09-12 14:25 | Hematology/Onc Progress Note ---
Assessment/Plan Assessment/Plan Assessment and Recs: # Metastatic lung cancer -- right lower lobe infrahilar mass now measuring 5.9 x 5.9 x 5 cm with extensive adjacent satellite nodularity indicative of progression of malignancy. Associated exclusion of the right lower lobe bronchus likely postobstructive Interval enlargement of the right paravertebral mass adjacent to the medial right lower lobe now measuring 4.9 x 4.9 x 4 cm and eroding into the invading adjacent seventh and eighth and ninth thoracic vertebral bodies, Interval enlargement of interlobar bilateral pulmonary metastatic nodules --> at this time, given prior findings, he has very likely metastatic lung cancer given prior cancer history --> recommend f/u with Dr. Post at [facility] --> f/u with a biopsy if patient agrees of the lung --> if pcp or pulm recommends biopsy, can also be done in house --> had a outpatient pet scan that was completed last week # Anemia of chronic disease due to underlying chronic medical issues, multifactorial --> Anemia workup has been ordered, rule out gi bleed and ferritin is high --> No evidence of hemolysis is noted, peripheral smear has been reviewed. --> Hgb goal >7. Transfuse prn. --> Epogen or iron at this time is not particularly indicated --> Medications have been reviewed --> low threshold for gi evaluation in case has occult + # Leukocytosis/elevated white blood cell count, unspecified, very likely related to pna --> have reviewed peripheral smear and bandemia/neutrophilia noted --> continue antibiotics if they have been started by ID team --> monitor for resolution # Hypercalcemia very likely due to malignancy --> on ivf, has been started --> aredia and zometa as needed # Coagulation defect, multifactorial usually related to poor PO intake versus medications, versus hepatitis v cirrhosis --> administer Vitamin K if patient is bleeding or FFP if the INR is >10 --> hold off on ffp unless active procedure/bleeding, first begin with vit K 10 --> mixing study as needed # Right middle lobe pneumonia --> abx has been started --> monitor for resolution --> per id recs # Hyponatremia with renal failure --> on ivf # Bone metastases The timing of this note does not necessarily reflect the time of the patient was seen. Greatly appreciate consultation! Subjective HEENT: Denies: no symptoms, eye pain, blurred vision, tearing, double vision, ear pain, ear discharge, nose pain, nose congestion, throat pain, throat swelling, mouth pain, mouth swelling, other Cardiovascular: Denies: no symptoms, chest pain, edema, irregular heart rate, lightheadedness, palpitations, syncope, other Respiratory: Denies: no symptoms, cough, shortness of breath, SOB with excertion, SOB at rest, sputum, wheezing, other Gastrointestinal/Abdominal: Denies: no symptoms, abdomen distended, abdominal pain, black stools, tarry stools, blood in stool, constipated, diarrhea, difficulty swallowing, nausea, poor appetite, poor fluid intake, rectal bleeding , vomiting, other Genitourinary: Denies: no symptoms, burning, discharge, frequency, flank pain, hematuria, incontinence, pain, urgency, other Endocrine: Denies: no symptoms, excessive sweating, flushing, intolerance to cold, intolerance to heat, increased hunger, increased thirst, increased urine, unexplained weight gain, unexplained weight loss, other Hematologic/Lymphatic: Denies: no symptoms, anemia, easy bleeding, easy bruising, adenopathy, other Allergies: Coded Allergies: No Known Allergies (Unverified , 05/02/18) Subjective 09/11: extremely fatigued this am, no chills, fevers, not eating 09/12: no events noted, no f/c, no chills noted Objective Objective Current Medications Medications (Trade) Dose Ordered Sig/John Route PRN Reason Start Time Stop Time Status Last Admin Dose Admin Acetaminophen (Tylenol) 650 mg Q4H PRN ORAL fever 09/10/18 09:45 10/10/18 09:44 Albuterol/ Ipratropium (Albuterol/ Ipratropium) 3 ml Q4H PRN HHN Shortness of Breath 09/10/18 09:45 09/15/18 09:44 Cefepime HCl 2 gm/ Dextrose 110 ml @ 220 mls/hr Q24H IV 09/10/18 12:00 09/17/18 11:59 09/12/18 12:32 Dextrose (Dextrose 50%) 25 ml Q30M PRN IV Hypoglycemia 09/10/18 09:45 10/10/18 09:44 Dextrose (Dextrose 50%) 50 ml Q30M PRN IV Hypoglycemia 09/10/18 09:45 10/10/18 09:44 Dextrose/Sodium Chloride 1,000 ml @ 100 mls/hr Q10H IV 09/11/18 14:00 10/11/18 13:59 09/12/18 10:06 Heparin Sodium (Porcine) (Heparin 5000 units/ml) 5,000 units EVERY 12 HOURS SUBQ 09/10/18 21:00 10/10/18 20:59 09/12/18 08:40 Levothyroxine Sodium (Synthroid) 100 mcg DAILY IV 09/11/18 09:00 10/11/18 08:59 09/12/18 08:38 Morphine Sulfate (Morphine Sulfate) 2 mg Q4H PRN IVP Severe Pain (Pain Scale 7-10) 09/10/18 09:45 09/17/18 09:44 09/12/18 12:53 Nitroglycerin (Ntg) 0.4 mg Q5M PRN SL Prn Chest Pain 09/10/18 09:45 10/10/18 09:44 Ondansetron HCl (Zofran) 4 mg Q6H PRN IVP Nausea & Vomiting 09/10/18 09:45 10/10/18 09:44 09/11/18 01:47 Pantoprazole (Protonix) 40 mg DAILY ORAL 09/10/18 14:30 10/10/18 14:29 09/12/18 08:38 Polyethylene Glycol (Miralax) 17 gm DAILYPRN PRN ORAL Constipation 09/10/18 09:45 10/10/18 09:44 09/10/18 13:29 Promethazine HCl/ Codeine (Phenergan with Codeine) 5 ml Q4H PRN ORAL For Cough 09/10/18 09:45 10/10/18 09:44 Temazepam (Restoril) 15 mg HSPRN PRN ORAL Insomnia 09/10/18 09:45 09/17/18 09:44 Last 24 Hour Vital Signs Date Time Temp Pulse Resp B/P (MAP) Pulse Ox O2 Delivery O2 Flow Rate FiO2 09/12/18 12:00 98.2 62 20 119/73 (88) 97 09/12/18 09:00 Nasal Cannula 1.0 09/12/18 08:00 97.3 87 20 115/71 (86) 99 09/12/18 04:00 97.6 82 16 117/70 (86) 95 09/12/18 00:00 97.9 87 16 110/63 (79) 95 09/11/18 21:00 Nasal Cannula 1.0 09/11/18 20:00 98.7 87 16 113/73 (86) 97 09/11/18 16:00 98.0 82 18 111/65 (80) 09/11/18 12:00 98.2 89 17 140/71 (94) 09/11/18 09:00 Nasal Cannula 1.0 09/11/18 08:00 97.6 94 16 107/67 (80) 99 09/11/18 04:00 97.7 82 17 105/67 (80) 93 09/11/18 00:00 97.8 79 19 97/59 (72) 97 09/10/18 21:00 Nasal Cannula 1.0 09/10/18 20:00 97.8 71 18 96/65 (75) 97 09/10/18 15:58 98.6 67 18 96/62 (73) 96 Intake and Output 09/11/18 09/12/18 19:00 07:00 Intake Total 410 ml 1340 ml Output Total 1100 ml Balance 410 ml 240 ml Intake Oral 240 ml IV Total 410 ml 1100 ml Output Urine Total 1100 ml # Voids 6 Labs Test 09/10/18 06:30 09/10/18 06:45 09/10/18 08:00 09/10/18 09:04 Urine Color Yellow Urine Appearance Clear Urine pH 5 (4.5-8.0) Urine Specific [place] 1.015 (1.005-1.035) Urine Protein 2+ (NEGATIVE) Urine Glucose (UA) Negative (NEGATIVE) Urine Ketones 1+ (NEGATIVE) Urine Blood 4+ (NEGATIVE) Urine Nitrite Negative (NEGATIVE) Urine Bilirubin Negative (NEGATIVE) Urine Urobilinogen Normal MG/DL (0.0-1.0) Urine Leukocyte Esterase Negative (NEGATIVE) Urine RBC 2-4 /HPF (0 - 0) Urine WBC 0-2 /HPF (0 - 0) Urine Squamous Epithelial Cells Occasional /LPF Urine Bacteria Occasional /HPF (NONE) Urine Opiates Screen Negative (NEGATIVE) Urine Barbiturates Screen Negative (NEGATIVE) Phencyclidine (PCP) Screen Negative (NEGATIVE) Urine Amphetamines Screen Negative (NEGATIVE) Urine Benzodiazepines Screen Negative (NEGATIVE) Urine Cocaine Screen Negative (NEGATIVE) Urine Marijuana (THC) Screen Negative (NEGATIVE) White Blood Count 18.7 K/UL (4.8-10.8) Red Blood Count 3.91 M/UL (4.70-6.10) Hemoglobin 9.3 G/DL (14.2-18.0) Hematocrit 28.7 % (42.0-52.0) Mean Corpuscular Volume 74 FL (80-99) Mean Corpuscular Hemoglobin 23.9 PG (27.0-31.0) Mean Corpuscular Hemoglobin Concent 32.5 G/DL (32.0-36.0) Red Cell Distribution Width 16.2 % (11.6-14.8) Platelet Count 276 K/UL (150-450) Mean Platelet Volume 5.5 FL (6.5-10.1) Neutrophils (%) (Auto) % (45.0-75.0) Lymphocytes (%) (Auto) % (20.0-45.0) Monocytes (%) (Auto) % (1.0-10.0) Eosinophils (%) (Auto) % (0.0-3.0) Basophils (%) (Auto) % (0.0-2.0) Differential Total Cells Counted 100 Neutrophils % (Manual) 88 % (45-75) Lymphocytes % (Manual) 7 % (20-45) Monocytes % (Manual) 5 % (1-10) Eosinophils % (Manual) 0 % (0-3) Basophils % (Manual) 0 % (0-2) Band Neutrophils 0 % (0-8) Platelet Estimate Adequate Platelet Morphology Normal Anisocytosis 1+ Microcytosis 1+ Prothrombin Time 12.0 SEC (9.30-11.50) Prothromb Time International Ratio 1.1 (0.9-1.1) Activated Partial Thromboplast Time 38 SEC (23-33) Sodium Level 124 MMOL/L (136-145) Potassium Level 4.0 MMOL/L (3.5-5.1) Chloride Level 87 MMOL/L (98-107) Carbon Dioxide Level 27 MMOL/L (21-32) Anion Gap 11 mmol/L (5-15) Blood Urea Nitrogen 31 mg/dL (7-18) Creatinine 2.0 MG/DL (0.55-1.30) Estimat Glomerular Filtration Rate 34.5 mL/min (>60) Glucose Level 91 MG/DL (74-106) Calcium Level 11.0 MG/DL (8.5-10.1) Total Bilirubin 0.7 MG/DL (0.2-1.0) Aspartate Amino Transf (AST/SGOT) 31 U/L (15-37) Alanine Aminotransferase (ALT/SGPT) 23 U/L (12-78) Alkaline Phosphatase 128 U/L (46-116) Total Creatine Kinase 21 U/L (26-308) Troponin I 0.000 ng/mL (0.000-0.056) Pro-B-Type Natriuretic Peptide 1089 pg/mL (0-125) Total Protein 8.5 G/DL (6.4-8.2) Albumin 1.9 G/DL (3.4-5.0) Globulin 6.6 g/dL Albumin/Globulin Ratio 0.3 (1.0-2.7) Lactic Acid Level 1.30 mmol/L (0.4-2.0) Urine Osmolality 333 mOsm/kg (429-449) Urine Random Sodium < 20 mmol/L (20-110) Urine Creatinine 87.4 MG/DL (30.0-125.0) Test 09/10/18 17:25 09/11/18 05:00 09/12/18 05:56 Reticulocyte Count 0.6 % (0.5-2.0) Fibrinogen 967 mg/dL (200-400) Total Bilirubin 0.6 MG/DL (0.2-1.0) 0.4 MG/DL (0.2-1.0) 0.7 MG/DL (0.2-1.0) Direct Bilirubin 0.3 MG/DL (0.0-0.3) HIV (1&2) Antibody Rapid Negative (NEGATIVE) White Blood Count 15.2 K/UL (4.8-10.8) 13.9 K/UL (4.8-10.8) Red Blood Count 3.43 M/UL (4.70-6.10) 3.76 M/UL (4.70-6.10) Hemoglobin 8.3 G/DL (14.2-18.0) 9.0 G/DL (14.2-18.0) Hematocrit 26.0 % (42.0-52.0) 28.8 % (42.0-52.0) Mean Corpuscular Volume 76 FL (80-99) 77 FL (80-99) Mean Corpuscular Hemoglobin 24.2 PG (27.0-31.0) 23.9 PG (27.0-31.0) Mean Corpuscular Hemoglobin Concent 31.9 G/DL (32.0-36.0) 31.2 G/DL (32.0-36.0) Red Cell Distribution Width 16.6 % (11.6-14.8) 17.1 % (11.6-14.8) Platelet Count 182 K/UL (150-450) 159 K/UL (150-450) Mean Platelet Volume 6.4 FL (6.5-10.1) 9.3 FL (6.5-10.1) Neutrophils (%) (Auto) % (45.0-75.0) % (45.0-75.0) Lymphocytes (%) (Auto) % (20.0-45.0) % (20.0-45.0) Monocytes (%) (Auto) % (1.0-10.0) % (1.0-10.0) Eosinophils (%) (Auto) % (0.0-3.0) % (0.0-3.0) Basophils (%) (Auto) % (0.0-2.0) % (0.0-2.0) Differential Total Cells Counted 100 100 Neutrophils % (Manual) 88 % (45-75) 90 % (45-75) Lymphocytes % (Manual) 3 % (20-45) 3 % (20-45) Monocytes % (Manual) 9 % (1-10) 7 % (1-10) Eosinophils % (Manual) 0 % (0-3) 0 % (0-3) Basophils % (Manual) 0 % (0-2) 0 % (0-2) Band Neutrophils 0 % (0-8) 0 % (0-8) Platelet Estimate Adequate Adequate Platelet Morphology Normal Anisocytosis 1+ 1+ Microcytosis 1+ 1+ Sodium Level 129 MMOL/L (136-145) 130 MMOL/L (136-145) Potassium Level 4.0 MMOL/L (3.5-5.1) 4.4 MMOL/L (3.5-5.1) Chloride Level 95 MMOL/L (98-107) 97 MMOL/L (98-107) Carbon Dioxide Level 27 MMOL/L (21-32) 24 MMOL/L (21-32) Anion Gap 7 mmol/L (5-15) 9 mmol/L (5-15) Blood Urea Nitrogen 32 mg/dL (7-18) 21 mg/dL (7-18) Creatinine 2.0 MG/DL (0.55-1.30) 1.8 MG/DL (0.55-1.30) Estimat Glomerular Filtration Rate 34.5 mL/min (>60) 38.9 mL/min (>60) Glucose Level 118 MG/DL (74-106) 155 MG/DL (74-106) Hemoglobin A1c 6.4 % (4.3-6.0) Lactic Acid Level 1.10 mmol/L (0.4-2.0) Uric Acid 9.1 MG/DL (2.6-7.2) 8.4 MG/DL (2.6-7.2) Calcium Level 9.5 MG/DL (8.5-10.1) 9.9 MG/DL (8.5-10.1) Phosphorus Level 2.8 MG/DL (2.5-4.9) 2.0 MG/DL (2.5-4.9) Magnesium Level 2.0 MG/DL (1.8-2.4) 1.9 MG/DL (1.8-2.4) Iron Level 12 ug/dL (50-175) Total Iron Binding Capacity 105 ug/dL (250-450) Percent Iron Saturation 11 % (15-50) Unsaturated Iron Binding 93 ug/dL (112-346) Ferritin 1817 NG/ML (8-388) Gamma Glutamyl Transpeptidase 120 U/L (5-85) Aspartate Amino Transf (AST/SGOT) 41 U/L (15-37) 48 U/L (15-37) Alanine Aminotransferase (ALT/SGPT) 22 U/L (12-78) 28 U/L (12-78) Alkaline Phosphatase 151 U/L (46-116) 178 U/L (46-116) Troponin I 0.000 ng/mL (0.000-0.056) C-Reactive Protein, Quantitative 26.7 mg/dL (0.00-0.90) Pro-B-Type Natriuretic Peptide 1269 pg/mL (0-125) Total Protein 6.9 G/DL (6.4-8.2) 7.6 G/DL (6.4-8.2) Albumin 1.5 G/DL (3.4-5.0) 1.6 G/DL (3.4-5.0) Globulin 5.4 g/dL 6.0 g/dL Albumin/Globulin Ratio 0.3 (1.0-2.7) 0.3 (1.0-2.7) Triglycerides Level 107 MG/DL (30-150) Cholesterol Level 121 MG/DL (< 200) LDL Cholesterol 67 mg/dL (<100) HDL Cholesterol 19 MG/DL (40-60) Cholesterol/HDL Ratio 6.4 (3.3-4.4) Vitamin B12 Level 910 PG/ML (193-986) Folate 3.5 NG/ML (8.6-58.9) Thyroid Stimulating Hormone (TSH) 43.734 uiU/mL (0.358-3.740) Free Thyroxine 0.34 NG/DL (0.76-1.46) Free Triiodothyronine < 0.5 pg/mL (2.3-4.2) Cortisol AM Sample 20.2 UG/DL Random Vancomycin Level 8.6 ug/mL Clumped Platelets Occasional Hypochromasia 1+ Height (Feet): 5 Height (Inches): 7.00 Weight (Pounds): 160 Objective GeN: weakness Head: normocephalic, atraumatic Eyes: right eye other - Slight ptosis right eye ; bilateral eye normal inspection, bilateral eye EOMI ENT: moist mucus membranes, other - Right facial weakness Neck: supple Respiratory: no respiratory distress, rhonchi, wheezing, expiration, posterior lower eighth or ninth rib pain not T spine tenderness CV: regular rate, rhythm, no edema GI: soft, no mass, non-distended, diffuse, scaphoid : no CVA tenderness Msk: gait/station normal, normal range of motion, no calf tenderness Neurologic: alert, oriented x3, DTRs symmetric, sensory intact, motor weakness - Right facial nerve Psychiatric: depressed affect Skin: other - Tobacco stains right index and middle finger Lymphatic: adenopathy - Right. Color noted 2 x 4 cm hard and immobile Lamonte Bean MD September 12, 2018 14:25
--- NOTE | 2018-09-12 14:29 | Nephrology Progress Note ---
Assessment/Plan Problem List: (1) Renal failure (ARF), acute on chronic (2) Hyponatremia (3) Right middle lobe pneumonia (4) Anemia (5) Hypothyroidism Assessment Renal failure ? acute on chronic ? dehydration HypoNatremia with Low Jo likely depletional RML Pneumonia HypoAlbuminemia / Proteinuria Anemia - Low MCV HypoThyroid Plan switch to IV Synthroid Saline IV fluid Monitor lytes Anemia amado Per consultants Subjective ROS Limited/Unobtainable: No Constitutional: Reports: malaise, weakness Objective Objective Last 24 Hour Vital Signs Date Time Temp Pulse Resp B/P (MAP) Pulse Ox O2 Delivery O2 Flow Rate FiO2 09/12/18 12:00 98.2 62 20 119/73 (88) 97 09/12/18 09:00 Nasal Cannula 1.0 09/12/18 08:00 97.3 87 20 115/71 (86) 99 09/12/18 04:00 97.6 82 16 117/70 (86) 95 09/12/18 00:00 97.9 87 16 110/63 (79) 95 09/11/18 21:00 Nasal Cannula 1.0 09/11/18 20:00 98.7 87 16 113/73 (86) 97 09/11/18 16:00 98.0 82 18 111/65 (80) Intake and Output 09/11/18 09/12/18 19:00 07:00 Intake Total 410 ml 1340 ml Output Total 1100 ml Balance 410 ml 240 ml Intake Oral 240 ml IV Total 410 ml 1100 ml Output Urine Total 1100 ml # Voids 6 Laboratory Tests 09/12/18 05:56: White Blood Count 13.9H, Red Blood Count 3.76L, Hemoglobin 9.0L, Hematocrit 28.8L, Mean Corpuscular Volume 77L, Mean Corpuscular Hemoglobin 23.9L, Mean Corpuscular Hemoglobin Concent 31.2L, Red Cell Distribution Width 17.1H, Platelet Count 159, Mean Platelet Volume 9.3, Neutrophils (%) (Auto) , Lymphocytes (%) (Auto) , Monocytes (%) (Auto) , Eosinophils (%) (Auto) , Basophils (%) (Auto) , Differential Total Cells Counted 100, Neutrophils % ( Manual) 90H, Lymphocytes % (Manual) 3L, Monocytes % (Manual) 7, Eosinophils % ( Manual) 0, Basophils % (Manual) 0, Band Neutrophils 0, Platelet Estimate Adequate, Platelet Morphology , Clumped Platelets Occasional, Hypochromasia 1+, Anisocytosis 1+, Microcytosis 1+, Sodium Level 130L, Potassium Level 4.4, Chloride Level 97L, Carbon Dioxide Level 24, Anion Gap 9, Blood Urea Nitrogen 21H, Creatinine 1.8H, Estimat Glomerular Filtration Rate 38.9, Glucose Level 155H, Uric Acid 8.4H, Calcium Level 9.9, Phosphorus Level 2.0L, Magnesium Level 1.9, Total Bilirubin 0.7, Aspartate Amino Transf (AST/SGOT) 48H, Alanine Aminotransferase (ALT/SGPT) 28, Alkaline Phosphatase 178H, Total Protein 7.6, Albumin 1.6L, Globulin 6.0, Albumin/Globulin Ratio 0.3L Height (Feet): 5 Height (Inches): 7.00 Weight (Pounds): 160 General Appearance: no apparent distress, lethargic Cardiovascular: normal rate Respiratory/Chest: decreased breath sounds Abdomen: soft Objective no change Marcin Pham MD September 12, 2018 14:29
--- NOTE | 2018-09-12 15:00 | NUR ---
NURSE NOTES: Patient refuses SCD. Patient made aware of risks and benefits, patient continues to refuse. Patient also refuses repositioning. Patient aware of the benefits of changing positions, patient does not want to be repositioned. Stable. Will continue to monitor.
[2018-09-12 16:00] VITALS: BP 125/74
--- NOTE | 2018-09-12 19:31 | NUR ---
NURSE NOTES Patient received from Raeann Bo Patient A/A/OX3 forgetful.Patient denies any pain at this time . Patient on O2 2L VIA N/C in placed . no s/s of distress noted LAC G#20 [id number] /HR. infusing well. patient on overlay matres in placed . Patient refused SCDS .Explained to patient the risk and benefits. Patient still refusing Patient uses urinals and voiding freely to yellow urine . Safety and fall precaution Implemented . call light within reach. bed in low position at all times . will continue to monitor.
--- NOTE | 2018-09-12 19:31 | NUR ---
HAND-OFF: Report given to Honey RAM. Patient is stable.
[2018-09-12 20:00] VITALS: BP 143/84
[2018-09-13] VITALS (14 sets, daily range): BP systolic 112–136; BP diastolic 66–79
[2018-09-13] MEDS: D5NS 1,000 ML IV SCH ×2 (05:32→16:05)
[2018-09-13 06:37] LABS: HEMATOCRIT 25.2 % (42.0-52.0); HEMOGLOBIN 7.7 G/DL (14.2-18.0); MEAN CORPUSCULAR VOLUME 76 FL (80-99); PLATELET COUNT 180 K/UL (150-450); WHITE BLOOD COUNT 14.2 K/UL (4.8-10.8)
[2018-09-13 06:41] LABS: ANION GAP 8 mmol/L (5-15); BLOOD UREA NITROGEN 16 mg/dL (7-18); CALCIUM 9.2 MG/DL (8.5-10.1); CARBON DIOXIDE 24 MMOL/L (21-32); CHLORIDE 99 MMOL/L (98-107); CREATININE 1.8 MG/DL (0.55-1.30); POTASSIUM 3.5 MMOL/L (3.5-5.1); SODIUM 131 MMOL/L (136-145)
--- NOTE | 2018-09-13 07:31 | NUR ---
HAND-OFF: Report given to KAYY Bo
--- NOTE | 2018-09-13 07:36 | NUR ---
NURSE NOTES: Patient is in bed awake and able to verbalize needs. Patient is stable. Denies pain or SOB. Patient refuses to wear nasal cannula, patient aware of all risks and benefits but continues to refuse. Patient is 94% on room air. Patient encouraged to use call light for assistance, verbalized understanding. Plan of care discussed with patient. Patient appears agitated. Patient in bed in locked and lowest position with call light within reach. All safety measures provided. Will continue to monitor.
--- NOTE | 2018-09-13 08:00 | NUR ---
NURSE NOTES: Lab results reported to Dr. Bean. Will check CBC again tomorrow am as ordered.
[2018-09-13] MEDS: Heparin 5000 units/ml inj SUBQ SCH ×2 (09:00→21:16)
[2018-09-13] MEDS: Morphine Sulfate 2mg/ml Inj(IV/IM USE ONLY) IVP PRN ×3 (09:10→23:34)
--- NOTE | 2018-09-13 09:35 | NUR ---
ST NOTE: ATTEMPTED ST EVAL. CURRENTLY, PT IS NPO FOR PROCEDURE. D/W RN, FLORENTIN. WILL RE-ATTEMPT.
--- NOTE | 2018-09-13 09:39 | NUR ---
Social Work This Sw received a consult to see patient for a home safety evaluation. This SW met with patient who appears alert/oriented x3, stating he lives alone in his house, with 16 steps. Patient does not have any family or friends to assist after discharge. Patient was ambulatory and still driving (according to patient). Patient does not have any DME. Pending progress at this time; P.T working with patient and not able to ambulate or care for self independently at this time. Patient in agreement with SNF placement, wherever M.D will follow. Patient denied any substance abuse nor mental health concerns at this time.
[2018-09-13] MEDS ORDERED: fentaNYL 100 mcg/2 mL IV ONE (10:49)
[2018-09-13] MEDS ORDERED: Midazolam 2mg/2ml Inj ONE (10:49)
[2018-09-13] MEDS ORDERED: Lidocaine 1% Plain 30 ml INJ SCH (11:15)
[2018-09-13] MEDS: Cefepime HCl 2 GM in D5W 110 ML IV SCH (11:42)
--- NOTE | 2018-09-13 11:45 | NUR ---
NURSE NOTES: Patient taken downstairs for lung biopsy.
--- NOTE | 2018-09-13 12:21 | Pre-Procedure Note/Attestation ---
Pre-Procedure Note/Attestation Complete Prior to Procedure Planned Procedure: right Procedure Narrative: chest mass biopsy Indications for Procedure Pre-Operative Diagnosis: chest masses Attestation I attest that I discussed the nature of the procedure; its benefits; risks and complications; and alternatives (and the risks and benefits of such alternatives ), prior to the procedure, with the patient (or the patient's legal industrial sales representative). I attest that, if there was a reasonable possibility of needing a blood transfusion, the patient (or the patient's legal industrial sales representative) was given the [facility] standardized written summary, pursuant to the [place] Blood Safety Act ([place] Health and Safety Code # 1645, as amended). I attest that I re-evaluated the patient just prior to the surgery and that there has been no change in the patient's H&P, except as documented below: Jack Barragan MD September 13, 2018 12:21
--- NOTE | 2018-09-13 12:51 | Brief Operative Note ---
Immediate Post Operative Note Operative Note Chief Complaint: SOB Pre-op Diagnosis: chest masses Procedure: CT guided R chest mass biopsy Post-op Diagnosis: same as pre-op Surgeon: Shaunna Mendoza Anesthesia: local Specimen: yes - 3 18 G cores Complications: none Condition: stable Fluids: none Implant(s) used?: No Jack Mendoza MD September 13, 2018 12:51
--- NOTE | 2018-09-13 13:10 | NUR ---
NURSE NOTES: Patient arrived from lung biopsy via hospital bed. Patient is stable. Denies pain or SOB. Patient offered water. Patient is in bed in locked and lowest position with call light within reach. Will continue to monitor.
--- NOTE | 2018-09-13 13:14 | Hematology/Onc Progress Note ---
Assessment/Plan Assessment/Plan Assessment and Recs: # Metastatic lung cancer -- right lower lobe infrahilar mass now measuring 5.9 x 5.9 x 5 cm with extensive adjacent satellite nodularity indicative of progression of malignancy. Associated exclusion of the right lower lobe bronchus likely postobstructive Interval enlargement of the right paravertebral mass adjacent to the medial right lower lobe now measuring 4.9 x 4.9 x 4 cm and eroding into the invading adjacent seventh and eighth and ninth thoracic vertebral bodies, Interval enlargement of interlobar bilateral pulmonary metastatic nodules --> at this time, given prior findings, he has very likely metastatic lung cancer given prior cancer history --> recommend f/u with Dr. Post at [facility] --> f/u with a biopsy if patient agrees of the lung (to get 09/13) --> if pcp or pulm recommends biopsy, can also be done in house --> had a outpatient pet scan that was completed last week # Anemia of chronic disease due to underlying chronic medical issues, multifactorial --> Anemia workup, rule out gi bleed and ferritin is high --> No evidence of hemolysis is noted, peripheral smear has been reviewed. --> Hgb goal >7. Transfuse prn. --> Epogen or iron at this time is not particularly indicated --> Medications have been reviewed --> low threshold for gi evaluation in case has occult + # Leukocytosis/elevated white blood cell count, unspecified, very likely related to pna --> have reviewed peripheral smear and bandemia/neutrophilia noted --> continue antibiotics if they have been started by ID team --> monitor for resolution # Hypercalcemia very likely due to malignancy --> on ivf, has been started --> aredia and zometa as needed # Coagulation defect, multifactorial usually related to poor PO intake versus medications, versus hepatitis v cirrhosis --> administer Vitamin K if patient is bleeding or FFP if the INR is >10 --> hold off on ffp unless active procedure/bleeding, first begin with vit K 10 --> mixing study as needed # Right middle lobe pneumonia --> abx has been started --> monitor for resolution --> per id recs # Hyponatremia with renal failure --> on ivf # Bone metastases The timing of this note does not necessarily reflect the time of the patient was seen. Greatly appreciate consultation! Subjective Constitutional: Denies: no symptoms, chills, fever, malaise, weakness, other HEENT: Denies: no symptoms, eye pain, blurred vision, tearing, double vision, ear pain, ear discharge, nose pain, nose congestion, throat pain, throat swelling, mouth pain, mouth swelling, other Cardiovascular: Denies: no symptoms, chest pain, edema, irregular heart rate, lightheadedness, palpitations, syncope, other Respiratory: Denies: no symptoms, cough, shortness of breath, SOB with excertion, SOB at rest, sputum, wheezing, other Gastrointestinal/Abdominal: Denies: no symptoms, abdomen distended, abdominal pain, black stools, tarry stools, blood in stool, constipated, diarrhea, difficulty swallowing, nausea, poor appetite, poor fluid intake, rectal bleeding , vomiting, other Genitourinary: Denies: no symptoms, burning, discharge, frequency, flank pain, hematuria, incontinence, pain, urgency, other Neurologic/Psychiatric: Denies: no symptoms, anxiety, depressed, emotional problems, headache, numbness, paresthesia, pre-existing deficit, seizure, tingling, tremors, weakness, other Endocrine: Denies: no symptoms, excessive sweating, flushing, intolerance to cold, intolerance to heat, increased hunger, increased thirst, increased urine, unexplained weight gain, unexplained weight loss, other Allergies: Coded Allergies: No Known Allergies (Unverified , 05/02/18) Subjective 09/11: extremely fatigued this am, no chills, fevers, not eating 09/12: no events noted, no f/c, no chills noted 09/13: no events, snf placement pending, pt / ot eval Objective Objective Current Medications Medications (Trade) Dose Ordered Sig/John Route PRN Reason Start Time Stop Time Status Last Admin Dose Admin Acetaminophen (Tylenol) 650 mg Q4H PRN ORAL fever 09/10/18 09:45 10/10/18 09:44 Albuterol/ Ipratropium (Albuterol/ Ipratropium) 3 ml Q4H PRN HHN Shortness of Breath 09/10/18 09:45 09/15/18 09:44 Cefepime HCl 2 gm/ Dextrose 110 ml @ 220 mls/hr Q24H IV 09/10/18 12:00 09/17/18 11:59 09/13/18 11:42 Dextrose (Dextrose 50%) 25 ml Q30M PRN IV Hypoglycemia 09/10/18 09:45 10/10/18 09:44 Dextrose (Dextrose 50%) 50 ml Q30M PRN IV Hypoglycemia 09/10/18 09:45 10/10/18 09:44 Dextrose/Sodium Chloride 1,000 ml @ 100 mls/hr Q10H IV 09/11/18 14:00 10/11/18 13:59 09/13/18 05:32 Heparin Sodium (Porcine) (Heparin 5000 units/ml) 5,000 units EVERY 12 HOURS SUBQ 09/10/18 21:00 10/10/18 20:59 09/12/18 20:36 Levothyroxine Sodium (Synthroid) 100 mcg DAILY IV 09/11/18 09:00 10/11/18 08:59 09/13/18 09:08 Lidocaine HCl (Xylocaine 1% 30ml) 30 ml ONCE INJ 09/13/18 11:15 09/13/18 23:00 Morphine Sulfate (Morphine Sulfate) 2 mg Q4H PRN IVP Severe Pain (Pain Scale 7-10) 09/10/18 09:45 09/17/18 09:44 09/13/18 09:10 Nitroglycerin (Ntg) 0.4 mg Q5M PRN SL Prn Chest Pain 09/10/18 09:45 10/10/18 09:44 Ondansetron HCl (Zofran) 4 mg Q6H PRN IVP Nausea & Vomiting 09/10/18 09:45 10/10/18 09:44 09/11/18 01:47 Pantoprazole (Protonix) 40 mg DAILY ORAL 09/10/18 14:30 10/10/18 14:29 09/12/18 08:38 Polyethylene Glycol (Miralax) 17 gm DAILYPRN PRN ORAL Constipation 09/10/18 09:45 10/10/18 09:44 09/10/18 13:29 Promethazine HCl/ Codeine (Phenergan with Codeine) 5 ml Q4H PRN ORAL For Cough 09/10/18 09:45 10/10/18 09:44 Temazepam (Restoril) 15 mg HSPRN PRN ORAL Insomnia 09/10/18 09:45 09/17/18 09:44 Last 24 Hour Vital Signs Date Time Temp Pulse Resp B/P (MAP) Pulse Ox O2 Delivery O2 Flow Rate FiO2 09/13/18 12:45 90 20 127/73 (91) 100 09/13/18 12:40 93 20 130/78 (95) 99 09/13/18 12:35 93 20 131/74 (93) 99 09/13/18 11:22 95 22 3.0 09/13/18 09:00 Nasal Cannula 1.0 09/13/18 08:00 97.9 93 17 133/72 (92) 94 09/13/18 04:00 98.5 87 17 134/79 (97) 97 09/13/18 00:00 97.5 92 19 136/75 (95) 98 09/12/18 21:00 Nasal Cannula 1.0 09/12/18 20:00 97.2 89 17 143/84 (103) 98 89 09/12/18 16:00 98.6 90 20 125/74 (91) 99 09/12/18 12:00 98.2 62 20 119/73 (88) 97 09/12/18 09:00 Nasal Cannula 1.0 09/12/18 08:00 97.3 87 20 115/71 (86) 99 09/12/18 04:00 97.6 82 16 117/70 (86) 95 09/12/18 00:00 97.9 87 16 110/63 (79) 95 09/11/18 21:00 Nasal Cannula 1.0 09/11/18 20:00 98.7 87 16 113/73 (86) 97 09/11/18 16:00 98.0 82 18 111/65 (80) Intake and Output 09/12/18 09/13/18 19:00 07:00 Intake Total 100 ml 1420 ml Output Total 800 ml Balance 100 ml 620 ml Intake Oral 320 ml IV Total 100 ml 1100 ml Output Urine Total 800 ml # Voids 5 Labs Test 09/10/18 17:25 09/11/18 05:00 09/12/18 05:56 09/13/18 04:50 Reticulocyte Count 0.6 % (0.5-2.0) Fibrinogen 967 mg/dL (200-400) Total Bilirubin 0.6 MG/DL (0.2-1.0) 0.4 MG/DL (0.2-1.0) 0.7 MG/DL (0.2-1.0) Direct Bilirubin 0.3 MG/DL (0.0-0.3) Total Protein (PEP) 6.1 g/dL (6.0-8.5) Albumin (PEP) 1.8 g/dL (2.9-4.4) Globulin (PEP) 4.3 g/dL (2.2-3.9) Albumin/Globulin Ratio 0.4 (0.7-1.7) 0.3 (1.0-2.7) 0.3 (1.0-2.7) Elfol-2-Ycwdphmsr 0.7 g/dL (0.0-0.4) Gileg-7-Mbbinqkky 1.2 g/dL (0.4-1.0) Beta Globulins 1.0 g/dL (0.7-1.3) Beta Gamma Globulin 1.5 g/dL (0.4-1.8) PEP Abnormal Protein Bands Not observed g/dL (Not Protein Electrophoresis Interpret Comment (.) HIV (1&2) Antibody Rapid Negative (NEGATIVE) White Blood Count 15.2 K/UL (4.8-10.8) 13.9 K/UL (4.8-10.8) 14.2 K/UL (4.8-10.8) Red Blood Count 3.43 M/UL (4.70-6.10) 3.76 M/UL (4.70-6.10) 3.30 M/UL (4.70-6.10) Hemoglobin 8.3 G/DL (14.2-18.0) 9.0 G/DL (14.2-18.0) 7.7 G/DL (14.2-18.0) Hematocrit 26.0 % (42.0-52.0) 28.8 % (42.0-52.0) 25.2 % (42.0-52.0) Mean Corpuscular Volume 76 FL (80-99) 77 FL (80-99) 76 FL (80-99) Mean Corpuscular Hemoglobin 24.2 PG (27.0-31.0) 23.9 PG (27.0-31.0) 23.4 PG (27.0-31.0) Mean Corpuscular Hemoglobin Concent 31.9 G/DL (32.0-36.0) 31.2 G/DL (32.0-36.0) 30.6 G/DL (32.0-36.0) Red Cell Distribution Width 16.6 % (11.6-14.8) 17.1 % (11.6-14.8) 17.0 % (11.6-14.8) Platelet Count 182 K/UL (150-450) 159 K/UL (150-450) 180 K/UL (150-450) Mean Platelet Volume 6.4 FL (6.5-10.1) 9.3 FL (6.5-10.1) 7.3 FL (6.5-10.1) Neutrophils (%) (Auto) % (45.0-75.0) % (45.0-75.0) % (45.0-75.0) Lymphocytes (%) (Auto) % (20.0-45.0) % (20.0-45.0) % (20.0-45.0) Monocytes (%) (Auto) % (1.0-10.0) % (1.0-10.0) % (1.0-10.0) Eosinophils (%) (Auto) % (0.0-3.0) % (0.0-3.0) % (0.0-3.0) Basophils (%) (Auto) % (0.0-2.0) % (0.0-2.0) % (0.0-2.0) Differential Total Cells Counted 100 100 100 Neutrophils % (Manual) 88 % (45-75) 90 % (45-75) 89 % (45-75) Lymphocytes % (Manual) 3 % (20-45) 3 % (20-45) 5 % (20-45) Monocytes % (Manual) 9 % (1-10) 7 % (1-10) 6 % (1-10) Eosinophils % (Manual) 0 % (0-3) 0 % (0-3) 0 % (0-3) Basophils % (Manual) 0 % (0-2) 0 % (0-2) 0 % (0-2) Band Neutrophils 0 % (0-8) 0 % (0-8) 0 % (0-8) Platelet Estimate Adequate Adequate Adequate Platelet Morphology Normal Normal Anisocytosis 1+ 1+ 1+ Microcytosis 1+ 1+ 1+ Sodium Level 129 MMOL/L (136-145) 130 MMOL/L (136-145) 131 MMOL/L (136-145) Potassium Level 4.0 MMOL/L (3.5-5.1) 4.4 MMOL/L (3.5-5.1) 3.5 MMOL/L (3.5-5.1) Chloride Level 95 MMOL/L (98-107) 97 MMOL/L (98-107) 99 MMOL/L (98-107) Carbon Dioxide Level 27 MMOL/L (21-32) 24 MMOL/L (21-32) 24 MMOL/L (21-32) Anion Gap 7 mmol/L (5-15) 9 mmol/L (5-15) 8 mmol/L (5-15) Blood Urea Nitrogen 32 mg/dL (7-18) 21 mg/dL (7-18) 16 mg/dL (7-18) Creatinine 2.0 MG/DL (0.55-1.30) 1.8 MG/DL (0.55-1.30) 1.8 MG/DL (0.55-1.30) Estimat Glomerular Filtration Rate 34.5 mL/min (>60) 38.9 mL/min (>60) 38.9 mL/min (>60) Glucose Level 118 MG/DL (74-106) 155 MG/DL (74-106) 115 MG/DL (74-106) Hemoglobin A1c 6.4 % (4.3-6.0) Lactic Acid Level 1.10 mmol/L (0.4-2.0) Uric Acid 9.1 MG/DL (2.6-7.2) 8.4 MG/DL (2.6-7.2) Calcium Level 9.5 MG/DL (8.5-10.1) 9.9 MG/DL (8.5-10.1) 9.2 MG/DL (8.5-10.1) Phosphorus Level 2.8 MG/DL (2.5-4.9) 2.0 MG/DL (2.5-4.9) Magnesium Level 2.0 MG/DL (1.8-2.4) 1.9 MG/DL (1.8-2.4) Iron Level 12 ug/dL (50-175) Total Iron Binding Capacity 105 ug/dL (250-450) Percent Iron Saturation 11 % (15-50) Unsaturated Iron Binding 93 ug/dL (112-346) Ferritin 1817 NG/ML (8-388) Gamma Glutamyl Transpeptidase 120 U/L (5-85) Aspartate Amino Transf (AST/SGOT) 41 U/L (15-37) 48 U/L (15-37) Alanine Aminotransferase (ALT/SGPT) 22 U/L (12-78) 28 U/L (12-78) Alkaline Phosphatase 151 U/L (46-116) 178 U/L (46-116) Troponin I 0.000 ng/mL (0.000-0.056) C-Reactive Protein, Quantitative 26.7 mg/dL (0.00-0.90) Pro-B-Type Natriuretic Peptide 1269 pg/mL (0-125) Total Protein 6.9 G/DL (6.4-8.2) 7.6 G/DL (6.4-8.2) Albumin 1.5 G/DL (3.4-5.0) 1.6 G/DL (3.4-5.0) Globulin 5.4 g/dL 6.0 g/dL Triglycerides Level 107 MG/DL (30-150) Cholesterol Level 121 MG/DL (< 200) LDL Cholesterol 67 mg/dL (<100) HDL Cholesterol 19 MG/DL (40-60) Cholesterol/HDL Ratio 6.4 (3.3-4.4) Vitamin B12 Level 910 PG/ML (193-986) Folate 3.5 NG/ML (8.6-58.9) Thyroid Stimulating Hormone (TSH) 43.734 uiU/mL (0.358-3.740) Free Thyroxine 0.34 NG/DL (0.76-1.46) Free Triiodothyronine < 0.5 pg/mL (2.3-4.2) Cortisol AM Sample 20.2 UG/DL Random Vancomycin Level 8.6 ug/mL Clumped Platelets Occasional Hypochromasia 1+ 3+ Height (Feet): 5 Height (Inches): 7.00 Weight (Pounds): 159 Objective GeN: weakness Head: normocephalic, atraumatic Eyes: right eye other - Slight ptosis right eye ; bilateral eye normal inspection, bilateral eye EOMI ENT: moist mucus membranes, other - Right facial weakness Neck: supple Respiratory: no respiratory distress, rhonchi, wheezing, expiration, posterior lower eighth or ninth rib pain not T spine tenderness CV: regular rate, rhythm, no edema GI: soft, no mass, non-distended, diffuse, scaphoid : no CVA tenderness Msk: gait/station normal, normal range of motion, no calf tenderness Neurologic: alert, oriented x3, DTRs symmetric, sensory intact, motor weakness - Right facial nerve Psychiatric: depressed affect Skin: other - Tobacco stains right index and middle finger Lymphatic: adenopathy - Right. Color noted 2 x 4 cm hard and immobile Lamonte Bean MD September 13, 2018 13:14
--- NOTE | 2018-09-13 13:14 | Pulmonology Progress Note ---
Assessment/Plan Problems: (1) PNEUMONIA (2) Bone metastases (3) Hyponatremia (4) Malnutrition (5) Hypothyroidism (6) Lung cancer metastatic to bone (7) Emphysema of lung Assessment/Plan lung biopsy ordered, I didn't agree about getting a lung biopsy check sputum iv abx symptomatic treatment check records from [facility] pain management Methadone for radiculopathy f/u oncology recommendations consider comfort care. Subjective ROS Limited/Unobtainable: No Constitutional: Reports: no symptoms HEENT: Repors: no symptoms Respiratory: Reports: no symptoms Allergies: Coded Allergies: No Known Allergies (Unverified , 05/02/18) Objective Last 24 Hour Vital Signs Date Time Temp Pulse Resp B/P (MAP) Pulse Ox O2 Delivery O2 Flow Rate FiO2 09/13/18 12:45 90 20 127/73 (91) 100 09/13/18 12:40 93 20 130/78 (95) 99 09/13/18 12:35 93 20 131/74 (93) 99 09/13/18 11:22 95 22 3.0 09/13/18 09:00 Nasal Cannula 1.0 09/13/18 08:00 97.9 93 17 133/72 (92) 94 09/13/18 04:00 98.5 87 17 134/79 (97) 97 09/13/18 00:00 97.5 92 19 136/75 (95) 98 09/12/18 21:00 Nasal Cannula 1.0 09/12/18 20:00 97.2 89 17 143/84 (103) 98 89 09/12/18 16:00 98.6 90 20 125/74 (91) 99 Intake and Output 09/12/18 09/13/18 19:00 07:00 Intake Total 100 ml 1420 ml Output Total 800 ml Balance 100 ml 620 ml Intake Oral 320 ml IV Total 100 ml 1100 ml Output Urine Total 800 ml # Voids 5 General Appearance: WD/WN HEENT: normocephalic, atraumatic Respiratory/Chest: chest wall non-tender, lungs clear Cardiovascular: normal peripheral pulses, normal rate Abdomen: normal bowel sounds, soft, non tender Genitourinary: normal external genitalia Extremities: no cyanosis Skin: no rash Neurologic/Psychiatric: grocery carrier II-XII grossly normal, no motor/sensory deficits Lymphatic: no neck adenopathy Microbiology Date/Time Source Procedure Growth Status 09/11/18 02:00 Sputum Expectorated Gram Stain - Final Resulted 09/11/18 02:00 Sputum Culture - Preliminary Gram Negative Mykel Elis Albicans Resulted Laboratory Tests 09/13/18 04:50: White Blood Count 14.2H, Red Blood Count 3.30L, Hemoglobin 7.7L, Hematocrit 25.2L, Mean Corpuscular Volume 76L, Mean Corpuscular Hemoglobin 23.4L, Mean Corpuscular Hemoglobin Concent 30.6L, Red Cell Distribution Width 17.0H, Platelet Count 180, Mean Platelet Volume 7.3, Neutrophils (%) (Auto) , Lymphocytes (%) (Auto) , Monocytes (%) (Auto) , Eosinophils (%) (Auto) , Basophils (%) (Auto) , Differential Total Cells Counted 100, Neutrophils % ( Manual) 89H, Lymphocytes % (Manual) 5L, Monocytes % (Manual) 6, Eosinophils % ( Manual) 0, Basophils % (Manual) 0, Band Neutrophils 0, Platelet Estimate Adequate, Platelet Morphology Normal, Hypochromasia 3+, Anisocytosis 1+, Microcytosis 1+, Sodium Level 131L, Potassium Level 3.5, Chloride Level 99, Carbon Dioxide Level 24, Anion Gap 8, Blood Urea Nitrogen 16, Creatinine 1.8H, Estimat Glomerular Filtration Rate 38.9, Glucose Level 115H, Calcium Level 9.2 Current Medications Medications (Trade) Dose Ordered Sig/John Route PRN Reason Start Time Stop Time Status Last Admin Dose Admin Acetaminophen (Tylenol) 650 mg Q4H PRN ORAL fever 09/10/18 09:45 10/10/18 09:44 Albuterol/ Ipratropium (Albuterol/ Ipratropium) 3 ml Q4H PRN HHN Shortness of Breath 09/10/18 09:45 09/15/18 09:44 Cefepime HCl 2 gm/ Dextrose 110 ml @ 220 mls/hr Q24H IV 09/10/18 12:00 09/17/18 11:59 09/13/18 11:42 Dextrose (Dextrose 50%) 25 ml Q30M PRN IV Hypoglycemia 09/10/18 09:45 10/10/18 09:44 Dextrose (Dextrose 50%) 50 ml Q30M PRN IV Hypoglycemia 09/10/18 09:45 10/10/18 09:44 Dextrose/Sodium Chloride 1,000 ml @ 100 mls/hr Q10H IV 09/11/18 14:00 10/11/18 13:59 09/13/18 05:32 Heparin Sodium (Porcine) (Heparin 5000 units/ml) 5,000 units EVERY 12 HOURS SUBQ 09/10/18 21:00 10/10/18 20:59 09/12/18 20:36 Levothyroxine Sodium (Synthroid) 100 mcg DAILY IV 09/11/18 09:00 10/11/18 08:59 09/13/18 09:08 Lidocaine HCl (Xylocaine 1% 30ml) 30 ml ONCE INJ 09/13/18 11:15 09/13/18 23:00 Morphine Sulfate (Morphine Sulfate) 2 mg Q4H PRN IVP Severe Pain (Pain Scale 7-10) 09/10/18 09:45 09/17/18 09:44 09/13/18 09:10 Nitroglycerin (Ntg) 0.4 mg Q5M PRN SL Prn Chest Pain 09/10/18 09:45 10/10/18 09:44 Ondansetron HCl (Zofran) 4 mg Q6H PRN IVP Nausea & Vomiting 09/10/18 09:45 10/10/18 09:44 09/11/18 01:47 Pantoprazole (Protonix) 40 mg DAILY ORAL 09/10/18 14:30 10/10/18 14:29 09/12/18 08:38 Polyethylene Glycol (Miralax) 17 gm DAILYPRN PRN ORAL Constipation 09/10/18 09:45 10/10/18 09:44 09/10/18 13:29 Promethazine HCl/ Codeine (Phenergan with Codeine) 5 ml Q4H PRN ORAL For Cough 09/10/18 09:45 10/10/18 09:44 Temazepam (Restoril) 15 mg HSPRN PRN ORAL Insomnia 09/10/18 09:45 09/17/18 09:44 Marybel Mcmanus MD September 13, 2018 13:14
--- NOTE | 2018-09-13 13:48 | General Progress Note ---
Assessment/Plan Problem List: (1) Anemia ICD Codes: D64.9 - Anemia, unspecified SNOMED: 936502959 (2) Malnutrition ICD Codes: E46 - Unspecified protein-calorie malnutrition SNOMED: 35894029 (3) Sepsis ICD Codes: A41.9 - Sepsis, unspecified organism SNOMED: 71298787 (4) Right middle lobe pneumonia ICD Codes: J18.1 - Lobar pneumonia, unspecified organism SNOMED: 278516806 Qualifiers: Qualified Codes: J18.1 - Lobar pneumonia, unspecified organism (5) Hyponatremia ICD Codes: E87.1 - Hypo-osmolality and hyponatremia SNOMED: 30819676 (6) Renal failure ICD Codes: N19 - Unspecified kidney failure SNOMED: 93936362 Qualifiers: Qualified Codes: N17.9 - Acute kidney failure, unspecified (7) Bone metastases ICD Codes: C79.51 - Secondary malignant neoplasm of bone SNOMED: 80457180 Status: unchanged Assessment/Plan: o2 pulm tx abx pt diet cbc bmp am brotman aru eval Subjective Constitutional: Reports: weakness Allergies: Coded Allergies: No Known Allergies (Unverified , 05/02/18) All Systems: reviewed and negative except above Subjective o2nc calm Objective Last 24 Hour Vital Signs Date Time Temp Pulse Resp B/P (MAP) Pulse Ox O2 Delivery O2 Flow Rate FiO2 09/13/18 12:45 90 20 127/73 (91) 100 09/13/18 12:40 93 20 130/78 (95) 99 09/13/18 12:35 93 20 131/74 (93) 99 09/13/18 11:22 95 22 3.0 09/13/18 09:00 Nasal Cannula 1.0 09/13/18 08:00 97.9 93 17 133/72 (92) 94 09/13/18 04:00 98.5 87 17 134/79 (97) 97 09/13/18 00:00 97.5 92 19 136/75 (95) 98 09/12/18 21:00 Nasal Cannula 1.0 09/12/18 20:00 97.2 89 17 143/84 (103) 98 89 09/12/18 16:00 98.6 90 20 125/74 (91) 99 Intake and Output 09/12/18 09/13/18 19:00 07:00 Intake Total 100 ml 1420 ml Output Total 800 ml Balance 100 ml 620 ml Intake Oral 320 ml IV Total 100 ml 1100 ml Output Urine Total 800 ml # Voids 5 Laboratory Tests 09/13/18 04:50: White Blood Count 14.2H, Red Blood Count 3.30L, Hemoglobin 7.7L, Hematocrit 25.2L, Mean Corpuscular Volume 76L, Mean Corpuscular Hemoglobin 23.4L, Mean Corpuscular Hemoglobin Concent 30.6L, Red Cell Distribution Width 17.0H, Platelet Count 180, Mean Platelet Volume 7.3, Neutrophils (%) (Auto) , Lymphocytes (%) (Auto) , Monocytes (%) (Auto) , Eosinophils (%) (Auto) , Basophils (%) (Auto) , Differential Total Cells Counted 100, Neutrophils % ( Manual) 89H, Lymphocytes % (Manual) 5L, Monocytes % (Manual) 6, Eosinophils % ( Manual) 0, Basophils % (Manual) 0, Band Neutrophils 0, Platelet Estimate Adequate, Platelet Morphology Normal, Hypochromasia 3+, Anisocytosis 1+, Microcytosis 1+, Sodium Level 131L, Potassium Level 3.5, Chloride Level 99, Carbon Dioxide Level 24, Anion Gap 8, Blood Urea Nitrogen 16, Creatinine 1.8H, Estimat Glomerular Filtration Rate 38.9, Glucose Level 115H, Calcium Level 9.2 Height (Feet): 5 Height (Inches): 7.00 Weight (Pounds): 159 General Appearance: lethargic EENT: normal ENT inspection Neck: normal alignment Cardiovascular: normal peripheral pulses, normal rate, regular rhythm Respiratory/Chest: chest wall non-tender, decreased breath sounds Abdomen: normal bowel sounds, non tender, soft Extremities: normal inspection Edema: no edema noted Arm (L), no edema noted Arm (R), no edema noted Leg (L), no edema noted Leg (R), no edema noted Pedal (L), no edema noted Pedal (R), no edema noted Generalized Neurologic: motor weakness Skin: normal pigmentation, warm/dry Marky DavilaZoe DO September 13, 2018 13:47
--- NOTE | 2018-09-13 14:15 | NUR ---
CASE MANAGEMENT:REVIEW 09/13/18 SI: PNA LUNG CANCER W/METS 97.9 93 17 133/72 94% on 1l/nc WBC+14.2 H/H-7.7/25.2 NA-131 IS: IV CEFEPIME Q24 IVF@100/HR IV SYNTHROID QD HEPARIN SQ Q12 IV MORPHINE Q4HRS PRN : MED/SURG STATUS 3 EAST DCP: FROM HOME PLAN: REFERRED TO KAYLEEN HERNANDEZ
--- NOTE | 2018-09-13 14:26 | NUR ---
DISCHARGE PLANNING DISCHARGE PLANNING ORDER NOTED FAXED CLINICALS TO [facility] AWAIT ACCEPTANCE
--- NOTE | 2018-09-13 14:45 | Infectious Diseases Prog Note ---
Assessment/Plan Assessment/Plan ASSESSMENT: The patient is a 58-year-old male with: 1. History of lung cancer. 2. History of brain cancer, brain tumor, status post surgery who has now leukocytosis.; Leukocytosis improvng 3. Possible postobstructive pneumonia. -CT chest: 1. Interval enlargement of the right lower lobe/infrahilar mass , now measuring 5.9 x 5.9 x 5.0 cm, with extensive adjacent satellite nodularity , indicative of progression of malignancy. Associated occlusion of the right lower lobe bronchus, likely postobstructive.2. Interval enlargement of the right paravertebral mass adjacent to the medial right lower lobe, now measuring at least 4.9 x 4.9 x 4.0 cm, and eroding into/invading the adjacent 7th, 8th, and 9th thoracic vertebral bodies.3. New anterior compression deformities of T7 (80% height loss) and T8 ( 50% height loss), likely pathologic fractures.4. Interval enlargement of innumerable bilateral pulmonary metastatic nodules. -sp cx GNR 4. Afebrile. 5. T7 +T8 pathologic fractures PLAN: 1. We will continue the patient on cefepime #4/7 for PNA pending sp cx -09/12 SP vancomycin #3 -09/10 SP IV Zosyn x1 2. CBC and BMP. 3. Monitor cultures (blood, sputum). 4. Heme onc f/u 5. Follow nephrology recommendation regarding renal insufficiency. 6. Based on the patient's clinical course and labs, we will do further recommendations. Thank you, Dr. Marky Davila for allowing me to participate in the care of this patient. I will follow the patient with you during this hospitalization. Subjective Allergies: Coded Allergies: No Known Allergies (Unverified , 05/02/18) Subjective afebrile wbc slightly increased Objective Vital Signs Last 24 Hour Vital Signs Date Time Temp Pulse Resp B/P (MAP) Pulse Ox O2 Delivery O2 Flow Rate FiO2 09/13/18 12:45 90 20 127/73 (91) 100 09/13/18 12:40 93 20 130/78 (95) 99 09/13/18 12:35 93 20 131/74 (93) 99 09/13/18 11:22 95 22 3.0 09/13/18 09:00 Nasal Cannula 1.0 09/13/18 08:00 97.9 93 17 133/72 (92) 94 09/13/18 04:00 98.5 87 17 134/79 (97) 97 09/13/18 00:00 97.5 92 19 136/75 (95) 98 09/12/18 21:00 Nasal Cannula 1.0 09/12/18 20:00 97.2 89 17 143/84 (103) 98 89 09/12/18 16:00 98.6 90 20 125/74 (91) 99 Height (Feet): 5 Height (Inches): 7.00 Weight (Pounds): 159 Objective HEENT: No pale conjunctivae. No scleral icterus. NECK: No lymphadenopathy. CHEST: Coarse breathing sounds. HEART: S1 and S2. ABDOMEN: Soft. EXTREMITIES: No cyanosis at this time. NEUROLOGIC: Awake. Microbiology Date/Time Source Procedure Growth Status 09/11/18 02:00 Sputum Expectorated Gram Stain - Final Resulted 09/11/18 02:00 Sputum Culture - Preliminary Gram Negative Mykel Elis Albicans Resulted Laboratory Tests Test 09/13/18 04:50 White Blood Count 14.2 K/UL (4.8-10.8) H Red Blood Count 3.30 M/UL (4.70-6.10) L Hemoglobin 7.7 G/DL (14.2-18.0) L Hematocrit 25.2 % (42.0-52.0) L Mean Corpuscular Volume 76 FL (80-99) L Mean Corpuscular Hemoglobin 23.4 PG (27.0-31.0) L Mean Corpuscular Hemoglobin Concent 30.6 G/DL (32.0-36.0) L Red Cell Distribution Width 17.0 % (11.6-14.8) H Platelet Count 180 K/UL (150-450) Mean Platelet Volume 7.3 FL (6.5-10.1) Neutrophils (%) (Auto) % (45.0-75.0) Lymphocytes (%) (Auto) % (20.0-45.0) Monocytes (%) (Auto) % (1.0-10.0) Eosinophils (%) (Auto) % (0.0-3.0) Basophils (%) (Auto) % (0.0-2.0) Differential Total Cells Counted 100 Neutrophils % (Manual) 89 % (45-75) H Lymphocytes % (Manual) 5 % (20-45) L Monocytes % (Manual) 6 % (1-10) Eosinophils % (Manual) 0 % (0-3) Basophils % (Manual) 0 % (0-2) Band Neutrophils 0 % (0-8) Platelet Estimate Adequate Platelet Morphology Normal Hypochromasia 3+ Anisocytosis 1+ Microcytosis 1+ Sodium Level 131 MMOL/L (136-145) L Potassium Level 3.5 MMOL/L (3.5-5.1) Chloride Level 99 MMOL/L (98-107) Carbon Dioxide Level 24 MMOL/L (21-32) Anion Gap 8 mmol/L (5-15) Blood Urea Nitrogen 16 mg/dL (7-18) Creatinine 1.8 MG/DL (0.55-1.30) H Estimat Glomerular Filtration Rate 38.9 mL/min (>60) Glucose Level 115 MG/DL (74-106) H Calcium Level 9.2 MG/DL (8.5-10.1) Current Medications Medications (Trade) Dose Ordered Sig/John Route PRN Reason Start Time Stop Time Status Last Admin Dose Admin Acetaminophen (Tylenol) 650 mg Q4H PRN ORAL fever 09/10/18 09:45 10/10/18 09:44 Albuterol/ Ipratropium (Albuterol/ Ipratropium) 3 ml Q4H PRN HHN Shortness of Breath 09/10/18 09:45 09/15/18 09:44 Cefepime HCl 2 gm/ Dextrose 110 ml @ 220 mls/hr Q24H IV 09/10/18 12:00 09/17/18 11:59 09/13/18 11:42 Dextrose (Dextrose 50%) 25 ml Q30M PRN IV Hypoglycemia 09/10/18 09:45 10/10/18 09:44 Dextrose (Dextrose 50%) 50 ml Q30M PRN IV Hypoglycemia 09/10/18 09:45 10/10/18 09:44 Dextrose/Sodium Chloride 1,000 ml @ 100 mls/hr Q10H IV 09/11/18 14:00 10/11/18 13:59 09/13/18 05:32 Heparin Sodium (Porcine) (Heparin 5000 units/ml) 5,000 units EVERY 12 HOURS SUBQ 09/10/18 21:00 10/10/18 20:59 09/12/18 20:36 Levothyroxine Sodium (Synthroid) 100 mcg DAILY IV 09/11/18 09:00 10/11/18 08:59 09/13/18 09:08 Lidocaine HCl (Xylocaine 1% 30ml) 30 ml ONCE INJ 09/13/18 11:15 09/13/18 23:00 Morphine Sulfate (Morphine Sulfate) 2 mg Q4H PRN IVP Severe Pain (Pain Scale 7-10) 09/10/18 09:45 09/17/18 09:44 09/13/18 09:10 Nitroglycerin (Ntg) 0.4 mg Q5M PRN SL Prn Chest Pain 09/10/18 09:45 10/10/18 09:44 Ondansetron HCl (Zofran) 4 mg Q6H PRN IVP Nausea & Vomiting 09/10/18 09:45 10/10/18 09:44 09/11/18 01:47 Pantoprazole (Protonix) 40 mg DAILY ORAL 09/10/18 14:30 10/10/18 14:29 09/12/18 08:38 Polyethylene Glycol (Miralax) 17 gm DAILYPRN PRN ORAL Constipation 09/10/18 09:45 10/10/18 09:44 09/10/18 13:29 Promethazine HCl/ Codeine (Phenergan with Codeine) 5 ml Q4H PRN ORAL For Cough 09/10/18 09:45 10/10/18 09:44 Temazepam (Restoril) 15 mg HSPRN PRN ORAL Insomnia 09/10/18 09:45 09/17/18 09:44 Kalie House M.D. September 13, 2018 14:45
--- NOTE | 2018-09-13 15:25 | Diagnostic Imaging Report ---
Indication: Post lung biopsy Technique: One view of the chest Comparison: 09/10/2018 Findings: No pneumothorax demonstrated. Small nodules are again demonstrated. Opacity at the right lung base likely represents large lung mass demonstrated on recent chest CT. Impression: No evidence of postbiopsy pneumothorax
--- NOTE | 2018-09-13 15:58 | Nephrology Progress Note ---
Assessment/Plan Problem List: (1) Renal failure (ARF), acute on chronic Assessment: cr down 1.8 (2) Hyponatremia Assessment: Na up 131 (3) Right middle lobe pneumonia (4) Anemia (5) Hypothyroidism Assessment Renal failure ? acute on chronic ? dehydration HypoNatremia with Low Jo likely depletional RML Pneumonia HypoAlbuminemia / Proteinuria Anemia - Low MCV HypoThyroid Plan IV Synthroid Saline IV fluid Monitor lytes Anemia amado Per consultants waiting for lung Bx Subjective ROS Limited/Unobtainable: No Objective Objective Last 24 Hour Vital Signs Date Time Temp Pulse Resp B/P (MAP) Pulse Ox O2 Delivery O2 Flow Rate FiO2 09/13/18 12:45 90 20 127/73 (91) 100 09/13/18 12:40 93 20 130/78 (95) 99 09/13/18 12:35 93 20 131/74 (93) 99 09/13/18 11:22 95 22 3.0 09/13/18 09:00 Nasal Cannula 1.0 09/13/18 08:00 97.9 93 17 133/72 (92) 94 09/13/18 04:00 98.5 87 17 134/79 (97) 97 09/13/18 00:00 97.5 92 19 136/75 (95) 98 09/12/18 21:00 Nasal Cannula 1.0 09/12/18 20:00 97.2 89 17 143/84 (103) 98 89 09/12/18 16:00 98.6 90 20 125/74 (91) 99 Intake and Output 09/12/18 09/13/18 19:00 07:00 Intake Total 100 ml 1420 ml Output Total 800 ml Balance 100 ml 620 ml Intake Oral 320 ml IV Total 100 ml 1100 ml Output Urine Total 800 ml # Voids 5 Laboratory Tests 09/13/18 04:50: White Blood Count 14.2H, Red Blood Count 3.30L, Hemoglobin 7.7L, Hematocrit 25.2L, Mean Corpuscular Volume 76L, Mean Corpuscular Hemoglobin 23.4L, Mean Corpuscular Hemoglobin Concent 30.6L, Red Cell Distribution Width 17.0H, Platelet Count 180, Mean Platelet Volume 7.3, Neutrophils (%) (Auto) , Lymphocytes (%) (Auto) , Monocytes (%) (Auto) , Eosinophils (%) (Auto) , Basophils (%) (Auto) , Differential Total Cells Counted 100, Neutrophils % ( Manual) 89H, Lymphocytes % (Manual) 5L, Monocytes % (Manual) 6, Eosinophils % ( Manual) 0, Basophils % (Manual) 0, Band Neutrophils 0, Platelet Estimate Adequate, Platelet Morphology Normal, Hypochromasia 3+, Anisocytosis 1+, Microcytosis 1+, Sodium Level 131L, Potassium Level 3.5, Chloride Level 99, Carbon Dioxide Level 24, Anion Gap 8, Blood Urea Nitrogen 16, Creatinine 1.8H, Estimat Glomerular Filtration Rate 38.9, Glucose Level 115H, Calcium Level 9.2 Height (Feet): 5 Height (Inches): 7.00 Weight (Pounds): 159 General Appearance: lethargic Cardiovascular: tachycardia Respiratory/Chest: decreased breath sounds Objective no change Marcin Pham MD September 13, 2018 15:58
--- NOTE | 2018-09-13 16:27 | NUR ---
ST NOTE: BEDSIDE SWALLOW EVAL RECEIVED BEDSIDE SWALLOW EVAL ORDER CHART REVIEWED PRIOR THE EVALUATION PT IS A 58-YEAR-OLD MALE WHO WAS ADMITTED FOR PNA. DYSPHAGIA RISK FACTORS: H/O METASTATIC LUNG CA, BRAIN TUMOR SURGERY, BRAIN CEREBELLAR SURGERY PLOF: PT LIVES AT HOME. CURRENT STATUS: PT SEEN AT BEDSIDE, SEEMS WEAK, VERBAL, SLOW RESPONSE. ABLE TO FOLLOW DIRECTIONS, SEEMS DEPRESSED. GIVEN PO TRIALS THIN(CUP) AND PUREE(TSP), PT REFUSED SOLID. INITIAL IMPRESSION: MILD OR WORSENED OROPHARYNGEAL DYSPHAGIA. R-SIDED FACIAL WEAKNESS. MIN TONGUE DEVIATED TO R-SIDED. MILDLY INCREASED ORAL TRANSIT TIME(3 SECONDS) UNTIL PT INITIATED PHARYNGEAL SWALLOW, ADEQUATE LARYNGEAL ELEVATION, NO OVERT S/S OF ASPIRATION. DUE TO PT HAS H/O BRAIN TUMOR, PT HAS RISK FOR ASPIRATION. RECOMMENDATIONS: 1. FOR QUALITY OF LIFE, CONTINUE REGULAR WITH THIN LIQUIDS 2. STRICT ASPIRATION PRECAUTIONS 3. MODIFIED BARIUM SWALLOW STUDY IP OR OP. D/W THE STAFF AND PT POSTED ASPIRATION PRECAUTIONS SIGN.
--- NOTE | 2018-09-13 19:30 | NUR ---
NURSE NOTES Patient received A/A/OX3 and forgetful . Patient denies any pain at this time . no sob /no n/v noted RFA G#22 D5NS @ 100CC/HR infusing well . Patient on o2 2l via n/c in placed . Patient uses urinals and voided yellow urine . Patient refused SCDS . safety and fall precaution Implemented . call light within reach . bed in low position . alarm active .will continue to monitor .
--- NOTE | 2018-09-13 19:30 | NUR ---
HAND-OFF: Report given to Honey RAM. Patient is stable.
[2018-09-14] VITALS (7 sets, daily range): BP systolic 129–140; BP diastolic 66–81
[2018-09-14] MEDS: D5NS 1,000 ML IV SCH ×2 (02:05→12:00)
[2018-09-14 06:27] LABS: HEMATOCRIT 23.1 % (42.0-52.0); HEMOGLOBIN 7.2 G/DL (14.2-18.0); MEAN CORPUSCULAR VOLUME 76 FL (80-99); PLATELET COUNT 188 K/UL (150-450); RED BLOOD COUNT 3.05 M/UL (4.70-6.10); RED CELL DISTRIBUTION WIDTH 16.5 % (11.6-14.8)
[2018-09-14 06:53] LABS: ALANINE AMINOTRANSFERASE 14 U/L (12-78); ALBUMIN 1.3 G/DL (3.4-5.0); ALBUMIN/GLOBULIN RATIO 0.3 (1.0-2.7); ALKALINE PHOSPHATASE 122 U/L (46-116); ANION GAP 9 mmol/L (5-15); ASPARTATE AMINO TRANSFERASE 19 U/L (15-37); BILIRUBIN,TOTAL 0.6 MG/DL (0.2-1.0); BLOOD UREA NITROGEN 16 mg/dL (7-18); CALCIUM 9.1 MG/DL (8.5-10.1); CARBON DIOXIDE 24 MMOL/L (21-32); CHLORIDE 100 MMOL/L (98-107); CREATININE 1.7 MG/DL (0.55-1.30); PHOSPHORUS 1.8 MG/DL (2.5-4.9); POTASSIUM 3.4 MMOL/L (3.5-5.1); SODIUM 133 MMOL/L (136-145)
--- NOTE | 2018-09-14 07:33 | NUR ---
HAND-OFF: Report given to Rafia Bo
--- NOTE | 2018-09-14 08:58 | Infectious Diseases Prog Note ---
Assessment/Plan Assessment/Plan ASSESSMENT: The patient is a 58-year-old male with: 1. History of lung cancer. 2. History of brain cancer, brain tumor, status post surgery who has now leukocytosis.; Leukocytosis improvng 3. Possible postobstructive pneumonia. LUng Mass -09/13 CT guided R chest mass biopsy -CT chest: 1. Interval enlargement of the right lower lobe/infrahilar mass , now measuring 5.9 x 5.9 x 5.0 cm, with extensive adjacent satellite nodularity , indicative of progression of malignancy. Associated occlusion of the right lower lobe bronchus, likely postobstructive.2. Interval enlargement of the right paravertebral mass adjacent to the medial right lower lobe, now measuring at least 4.9 x 4.9 x 4.0 cm, and eroding into/invading the adjacent 7th, 8th, and 9th thoracic vertebral bodies.3. New anterior compression deformities of T7 (80% height loss) and T8 ( 50% height loss), likely pathologic fractures.4. Interval enlargement of innumerable bilateral pulmonary metastatic nodules. -sp cx PsA (felix S), C. albicans 4. Afebrile. 5. T7 +T8 pathologic fractures PLAN: 1. We will continue the patient on cefepime #5/7 for PSa PNA -09/12 SP vancomycin #3 -09/10 SP IV Zosyn x1 2. CBC and BMP. 3. Monitor cultures (blood, sputum). 4. Heme onc f/u 5. Follow nephrology recommendation regarding renal insufficiency. 6. Based on the patient's clinical course and labs, we will do further recommendations. Thank you, Dr. Marky Davila for allowing me to participate in the care of this patient. I will follow the patient with you during this hospitalization. Subjective Allergies: Coded Allergies: No Known Allergies (Unverified , 05/02/18) Subjective afebrile wbc and Cr improved at 1l NC s/p CT guided lung mass biopsy yesterday Objective Vital Signs Last 24 Hour Vital Signs Date Time Temp Pulse Resp B/P (MAP) Pulse Ox O2 Delivery O2 Flow Rate FiO2 09/14/18 04:05 98.5 87 17 134/79 (97) 95 09/14/18 04:00 98.8 109 22 129/74 (92) 09/14/18 00:04 97.2 09/14/18 00:00 98.3 103 18 137/81 (99) 95 09/13/18 21:00 Nasal Cannula 1.0 09/13/18 20:00 97.2 96 18 121/72 (88) 95 09/13/18 16:00 98.2 88 16 125/69 (87) 95 09/13/18 14:30 98.2 83 18 112/66 (81) 96 09/13/18 14:00 98.0 90 20 119/72 (88) 96 09/13/18 13:45 98.3 83 20 116/67 (83) 96 09/13/18 13:30 98.1 85 20 123/68 (86) 96 09/13/18 13:15 98.1 94 20 130/73 (92) 96 09/13/18 12:45 90 20 127/73 (91) 100 09/13/18 12:40 93 20 130/78 (95) 99 09/13/18 12:35 93 20 131/74 (93) 99 09/13/18 11:22 95 22 3.0 09/13/18 09:00 Nasal Cannula 1.0 Height (Feet): 5 Height (Inches): 7.00 Weight (Pounds): 159 Objective HEENT: No pale conjunctivae. No scleral icterus. NECK: No lymphadenopathy. CHEST: Coarse breathing sounds. HEART: S1 and S2. ABDOMEN: Soft. EXTREMITIES: No cyanosis at this time. NEUROLOGIC: Awake. Laboratory Tests Test 09/14/18 05:20 White Blood Count 13.0 K/UL (4.8-10.8) H Red Blood Count 3.05 M/UL (4.70-6.10) L Hemoglobin 7.2 G/DL (14.2-18.0) L Hematocrit 23.1 % (42.0-52.0) L Mean Corpuscular Volume 76 FL (80-99) L Mean Corpuscular Hemoglobin 23.6 PG (27.0-31.0) L Mean Corpuscular Hemoglobin Concent 31.2 G/DL (32.0-36.0) L Red Cell Distribution Width 16.5 % (11.6-14.8) H Platelet Count 188 K/UL (150-450) Mean Platelet Volume 6.2 FL (6.5-10.1) L Neutrophils (%) (Auto) % (45.0-75.0) Lymphocytes (%) (Auto) % (20.0-45.0) Monocytes (%) (Auto) % (1.0-10.0) Eosinophils (%) (Auto) % (0.0-3.0) Basophils (%) (Auto) % (0.0-2.0) Neutrophils % (Manual) Pending Lymphocytes % (Manual) Pending Platelet Estimate Pending Platelet Morphology Pending Sodium Level 133 MMOL/L (136-145) L Potassium Level 3.4 MMOL/L (3.5-5.1) L Chloride Level 100 MMOL/L (98-107) Carbon Dioxide Level 24 MMOL/L (21-32) Anion Gap 9 mmol/L (5-15) Blood Urea Nitrogen 16 mg/dL (7-18) Creatinine 1.7 MG/DL (0.55-1.30) H Estimat Glomerular Filtration Rate 41.6 mL/min (>60) Glucose Level 186 MG/DL (74-106) H Uric Acid 7.3 MG/DL (2.6-7.2) H Calcium Level 9.1 MG/DL (8.5-10.1) Phosphorus Level 1.8 MG/DL (2.5-4.9) L Magnesium Level 1.6 MG/DL (1.8-2.4) L Total Bilirubin 0.6 MG/DL (0.2-1.0) Aspartate Amino Transf (AST/SGOT) 19 U/L (15-37) Alanine Aminotransferase (ALT/SGPT) 14 U/L (12-78) Alkaline Phosphatase 122 U/L (46-116) H Total Protein 6.2 G/DL (6.4-8.2) L Albumin 1.3 G/DL (3.4-5.0) L Globulin 4.9 g/dL Albumin/Globulin Ratio 0.3 (1.0-2.7) L Current Medications Medications (Trade) Dose Ordered Sig/John Route PRN Reason Start Time Stop Time Status Last Admin Dose Admin Acetaminophen (Tylenol) 650 mg Q4H PRN ORAL fever 09/10/18 09:45 10/10/18 09:44 Albuterol/ Ipratropium (Albuterol/ Ipratropium) 3 ml Q4H PRN HHN Shortness of Breath 09/10/18 09:45 09/15/18 09:44 Cefepime HCl 2 gm/ Dextrose 110 ml @ 220 mls/hr Q24H IV 09/10/18 12:00 09/17/18 11:59 09/13/18 11:42 Dextrose (Dextrose 50%) 25 ml Q30M PRN IV Hypoglycemia 09/10/18 09:45 10/10/18 09:44 Dextrose (Dextrose 50%) 50 ml Q30M PRN IV Hypoglycemia 09/10/18 09:45 10/10/18 09:44 Dextrose/Sodium Chloride 1,000 ml @ 100 mls/hr Q10H IV 09/11/18 14:00 10/11/18 13:59 09/14/18 02:05 Heparin Sodium (Porcine) (Heparin 5000 units/ml) 5,000 units EVERY 12 HOURS SUBQ 09/10/18 21:00 10/10/18 20:59 09/13/18 21:16 Levothyroxine Sodium (Synthroid) 100 mcg DAILY IV 09/11/18 09:00 10/11/18 08:59 09/13/18 09:08 Morphine Sulfate (Morphine Sulfate) 2 mg Q4H PRN IVP Severe Pain (Pain Scale 7-10) 09/10/18 09:45 09/17/18 09:44 09/13/18 23:34 Nitroglycerin (Ntg) 0.4 mg Q5M PRN SL Prn Chest Pain 09/10/18 09:45 10/10/18 09:44 Ondansetron HCl (Zofran) 4 mg Q6H PRN IVP Nausea & Vomiting 09/10/18 09:45 10/10/18 09:44 09/11/18 01:47 Pantoprazole (Protonix) 40 mg DAILY ORAL 09/10/18 14:30 10/10/18 14:29 09/12/18 08:38 Polyethylene Glycol (Miralax) 17 gm DAILYPRN PRN ORAL Constipation 09/10/18 09:45 10/10/18 09:44 09/10/18 13:29 Promethazine HCl/ Codeine (Phenergan with Codeine) 5 ml Q4H PRN ORAL For Cough 09/10/18 09:45 10/10/18 09:44 Temazepam (Restoril) 15 mg HSPRN PRN ORAL Insomnia 09/10/18 09:45 09/17/18 09:44 Kalie House M.D. September 14, 2018 08:58
[2018-09-14] MEDS: Morphine Sulfate 2mg/ml Inj(IV/IM USE ONLY) IVP PRN (09:43)
[2018-09-14] MEDS: Heparin 5000 units/ml inj SUBQ SCH ×2 (09:44→21:37)
[2018-09-14] MEDS ORDERED: Potassium Phosphate 30 MM in NS 275 ML IV SCH (10:00)
--- NOTE | 2018-09-14 10:43 | NUR ---
P.T NOTE: P.T ATTEMPTED HOWEVER PATIENT DECLINED TO PARTICIPATE DUE TO C/O NOT FEELING WELL.
--- NOTE | 2018-09-14 11:36 | NUR ---
NURSE NOTES: 2nd bag given for magnesium
--- NOTE | 2018-09-14 11:46 | Pulmonology Progress Note ---
Assessment/Plan Problems: (1) PNEUMONIA (2) Bone metastases (3) Hyponatremia (4) Malnutrition (5) Hypothyroidism (6) Lung cancer metastatic to bone (7) Emphysema of lung Assessment/Plan check sputum iv abx symptomatic treatment check records from [facility] pain management [facility] for radiculopathy f/u oncology recommendations consider comfort care, end of life care and HOSPICE. Subjective ROS Limited/Unobtainable: No Constitutional: Reports: no symptoms HEENT: Repors: no symptoms Respiratory: Reports: no symptoms Allergies: Coded Allergies: No Known Allergies (Unverified , 05/02/18) Objective Last 24 Hour Vital Signs Date Time Temp Pulse Resp B/P (MAP) Pulse Ox O2 Delivery O2 Flow Rate FiO2 09/14/18 09:00 Nasal Cannula 1.0 09/14/18 08:00 98.4 99 18 129/74 (92) 95 09/14/18 04:05 98.5 87 17 134/79 (97) 95 09/14/18 04:00 98.8 109 22 129/74 (92) 09/14/18 00:04 97.2 09/14/18 00:00 98.3 103 18 137/81 (99) 95 09/13/18 21:00 Nasal Cannula 1.0 09/13/18 20:00 97.2 96 18 121/72 (88) 95 09/13/18 16:00 98.2 88 16 125/69 (87) 95 09/13/18 14:30 98.2 83 18 112/66 (81) 96 09/13/18 14:00 98.0 90 20 119/72 (88) 96 09/13/18 13:45 98.3 83 20 116/67 (83) 96 09/13/18 13:30 98.1 85 20 123/68 (86) 96 09/13/18 13:15 98.1 94 20 130/73 (92) 96 09/13/18 12:45 90 20 127/73 (91) 100 09/13/18 12:40 93 20 130/78 (95) 99 09/13/18 12:35 93 20 131/74 (93) 99 Intake and Output 09/13/18 09/14/18 19:00 07:00 Intake Total 400 ml 1900 ml Output Total 700 ml Balance 400 ml 1200 ml Intake Oral 200 ml 800 ml IV Total 200 ml 1100 ml Output Urine Total 700 ml # Voids 4 General Appearance: WD/WN HEENT: normocephalic, atraumatic Respiratory/Chest: chest wall non-tender, crackles/rales Cardiovascular: normal peripheral pulses, normal rate Abdomen: normal bowel sounds, soft, non tender Extremities: no cyanosis Skin: no rash Laboratory Tests 09/14/18 05:20: White Blood Count 13.0H, Red Blood Count 3.05L, Hemoglobin 7.2L, Hematocrit 23.1L, Mean Corpuscular Volume 76L, Mean Corpuscular Hemoglobin 23.6L, Mean Corpuscular Hemoglobin Concent 31.2L, Red Cell Distribution Width 16.5H, Platelet Count 188, Mean Platelet Volume 6.2L, Neutrophils (%) (Auto) , Lymphocytes (%) (Auto) , Monocytes (%) (Auto) , Eosinophils (%) (Auto) , Basophils (%) (Auto) , Differential Total Cells Counted 100, Neutrophils % ( Manual) 90H, Lymphocytes % (Manual) 3L, Monocytes % (Manual) 6, Eosinophils % ( Manual) 0, Basophils % (Manual) 0, Metamyelocytes % 1H, Band Neutrophils 0, Platelet Estimate Adequate, Platelet Morphology Normal, Clumped Platelets 1+, Hypochromasia 2+, Anisocytosis 1+, Microcytosis 2+, Sodium Level 133L, Potassium Level 3.4L, Chloride Level 100, Carbon Dioxide Level 24, Anion Gap 9, Blood Urea Nitrogen 16, Creatinine 1.7H, Estimat Glomerular Filtration Rate 41.6 , Glucose Level 186H, Uric Acid 7.3H, Calcium Level 9.1, Phosphorus Level 1.8L, Magnesium Level 1.6L, Total Bilirubin 0.6, Aspartate Amino Transf (AST/SGOT) 19 , Alanine Aminotransferase (ALT/SGPT) 14, Alkaline Phosphatase 122H, Total Protein 6.2L, Albumin 1.3L, Globulin 4.9, Albumin/Globulin Ratio 0.3L Current Medications Medications (Trade) Dose Ordered Sig/John Route PRN Reason Start Time Stop Time Status Last Admin Dose Admin Acetaminophen (Tylenol) 650 mg Q4H PRN ORAL fever 09/10/18 09:45 10/10/18 09:44 Albuterol/ Ipratropium (Albuterol/ Ipratropium) 3 ml Q4H PRN HHN Shortness of Breath 09/10/18 09:45 09/15/18 09:44 Cefepime HCl 2 gm/ Dextrose 110 ml @ 220 mls/hr Q24H IV 09/10/18 12:00 09/17/18 11:59 09/13/18 11:42 Dextrose (Dextrose 50%) 25 ml Q30M PRN IV Hypoglycemia 09/10/18 09:45 10/10/18 09:44 Dextrose (Dextrose 50%) 50 ml Q30M PRN IV Hypoglycemia 09/10/18 09:45 10/10/18 09:44 Dextrose/Sodium Chloride 1,000 ml @ 100 mls/hr Q10H IV 09/11/18 14:00 10/11/18 13:59 09/14/18 02:05 Heparin Sodium (Porcine) (Heparin 5000 units/ml) 5,000 units EVERY 12 HOURS SUBQ 09/10/18 21:00 10/10/18 20:59 09/14/18 09:44 Levothyroxine Sodium (Synthroid) 100 mcg DAILY IV 09/11/18 09:00 10/11/18 08:59 09/14/18 09:36 Magnesium Sulfate 100 ml @ 100 mls/hr Q1H IVPB 09/14/18 09:15 09/14/18 13:14 09/14/18 11:34 Morphine Sulfate (Morphine Sulfate) 2 mg Q4H PRN IVP Severe Pain (Pain Scale 7-10) 09/10/18 09:45 09/17/18 09:44 09/14/18 09:43 Nitroglycerin (Ntg) 0.4 mg Q5M PRN SL Prn Chest Pain 09/10/18 09:45 10/10/18 09:44 Ondansetron HCl (Zofran) 4 mg Q6H PRN IVP Nausea & Vomiting 09/10/18 09:45 10/10/18 09:44 09/11/18 01:47 Pantoprazole (Protonix) 40 mg DAILY ORAL 09/10/18 14:30 10/10/18 14:29 09/14/18 09:45 Polyethylene Glycol (Miralax) 17 gm DAILYPRN PRN ORAL Constipation 09/10/18 09:45 10/10/18 09:44 09/10/18 13:29 Potassium Phosphate 30 mm/ Sodium Chloride 285 ml @ 47.5 mls/hr ONCE IV 09/14/18 10:00 09/14/18 16:00 Promethazine HCl/ Codeine (Phenergan with Codeine) 5 ml Q4H PRN ORAL For Cough 09/10/18 09:45 10/10/18 09:44 Temazepam (Restoril) 15 mg HSPRN PRN ORAL Insomnia 09/10/18 09:45 09/17/18 09:44 Marybel Mcmanus MD September 14, 2018 11:46
[2018-09-14] MEDS: Cefepime HCl 2 GM in D5W 110 ML IV SCH (12:00)
--- NOTE | 2018-09-14 12:16 | Hematology/Onc Progress Note ---
Assessment/Plan Assessment/Plan Assessment and Recs: # Metastatic lung cancer -- right lower lobe infrahilar mass now measuring 5.9 x 5.9 x 5 cm with extensive adjacent satellite nodularity indicative of progression of malignancy. Associated exclusion of the right lower lobe bronchus likely postobstructive Interval enlargement of the right paravertebral mass adjacent to the medial right lower lobe now measuring 4.9 x 4.9 x 4 cm and eroding into the invading adjacent seventh and eighth and ninth thoracic vertebral bodies, Interval enlargement of interlobar bilateral pulmonary metastatic nodules --> at this time, given prior findings, he has very likely metastatic lung cancer given prior cancer history --> recommend f/u with Dr. Post at [facility] --> f/u with a biopsy iof 09/13 lung biopsy --> had a outpatient pet scan that was completed last week --> review above with pcp, pulm/cc # Anemia of chronic disease due to underlying chronic medical issues, multifactorial --> Anemia workup, rule out gi bleed and ferritin is high --> No evidence of hemolysis is noted, peripheral smear has been reviewed. --> Hgb goal >7. Transfuse prn. --> Epogen or iron at this time is not particularly indicated --> Medications have been reviewed --> low threshold for gi evaluation in case has occult + # Leukocytosis/elevated white blood cell count, unspecified, very likely related to pna --> have reviewed peripheral smear and bandemia/neutrophilia noted --> continue antibiotics if they have been started by ID team --> monitor for resolution # Hypercalcemia very likely due to malignancy --> on ivf, has been started --> aredia and zometa as needed # Coagulation defect, multifactorial usually related to poor PO intake versus medications, versus hepatitis v cirrhosis --> administer Vitamin K if patient is bleeding or FFP if the INR is >10 --> hold off on ffp unless active procedure/bleeding, first begin with vit K 10 --> mixing study as needed # Right middle lobe pneumonia --> abx has been started --> monitor for resolution --> per id recs # Hyponatremia with renal failure --> on ivf # Bone metastases --> zometa qmo The timing of this note does not necessarily reflect the time of the patient was seen. Greatly appreciate consultation! Subjective Constitutional: Denies: no symptoms, chills, fever, malaise, weakness, other HEENT: Denies: no symptoms, eye pain, blurred vision, tearing, double vision, ear pain, ear discharge, nose pain, nose congestion, throat pain, throat swelling, mouth pain, mouth swelling, other Cardiovascular: Denies: no symptoms, chest pain, edema, irregular heart rate, lightheadedness, palpitations, syncope, other Respiratory: Denies: no symptoms, cough, shortness of breath, SOB with excertion, SOB at rest, sputum, wheezing, other Gastrointestinal/Abdominal: Denies: no symptoms, abdomen distended, abdominal pain, black stools, tarry stools, blood in stool, constipated, diarrhea, difficulty swallowing, nausea, poor appetite, poor fluid intake, rectal bleeding , vomiting, other Genitourinary: Denies: no symptoms, burning, discharge, frequency, flank pain, hematuria, incontinence, pain, urgency, other Neurologic/Psychiatric: Denies: no symptoms, anxiety, depressed, emotional problems, headache, numbness, paresthesia, pre-existing deficit, seizure, tingling, tremors, weakness, other Endocrine: Denies: no symptoms, excessive sweating, flushing, intolerance to cold, intolerance to heat, increased hunger, increased thirst, increased urine, unexplained weight gain, unexplained weight loss, other Allergies: Coded Allergies: No Known Allergies (Unverified , 05/02/18) Subjective 09/11: extremely fatigued this am, no chills, fevers, not eating 09/12: no events noted, no f/c, no chills noted 09/13: no events, snf placement pending, pt / ot eval 09/14: no events, pending pathology, no f/c, tired Objective Objective Current Medications Medications (Trade) Dose Ordered Sig/John Route PRN Reason Start Time Stop Time Status Last Admin Dose Admin Acetaminophen (Tylenol) 650 mg Q4H PRN ORAL fever 09/10/18 09:45 10/10/18 09:44 Albuterol/ Ipratropium (Albuterol/ Ipratropium) 3 ml Q4H PRN HHN Shortness of Breath 09/10/18 09:45 09/15/18 09:44 Cefepime HCl 2 gm/ Dextrose 110 ml @ 220 mls/hr Q24H IV 09/10/18 12:00 09/17/18 11:59 09/13/18 11:42 Dextrose (Dextrose 50%) 25 ml Q30M PRN IV Hypoglycemia 09/10/18 09:45 10/10/18 09:44 Dextrose (Dextrose 50%) 50 ml Q30M PRN IV Hypoglycemia 09/10/18 09:45 10/10/18 09:44 Dextrose/Sodium Chloride 1,000 ml @ 100 mls/hr Q10H IV 09/11/18 14:00 10/11/18 13:59 09/14/18 02:05 Heparin Sodium (Porcine) (Heparin 5000 units/ml) 5,000 units EVERY 12 HOURS SUBQ 09/10/18 21:00 10/10/18 20:59 09/14/18 09:44 Levothyroxine Sodium (Synthroid) 100 mcg DAILY IV 09/11/18 09:00 10/11/18 08:59 09/14/18 09:36 Magnesium Sulfate 100 ml @ 100 mls/hr Q1H IVPB 09/14/18 09:15 09/14/18 13:14 09/14/18 11:34 Morphine Sulfate (Morphine Sulfate) 2 mg Q4H PRN IVP Severe Pain (Pain Scale 7-10) 09/10/18 09:45 09/17/18 09:44 09/14/18 09:43 Nitroglycerin (Ntg) 0.4 mg Q5M PRN SL Prn Chest Pain 09/10/18 09:45 10/10/18 09:44 Ondansetron HCl (Zofran) 4 mg Q6H PRN IVP Nausea & Vomiting 09/10/18 09:45 10/10/18 09:44 09/11/18 01:47 Pantoprazole (Protonix) 40 mg DAILY ORAL 09/10/18 14:30 10/10/18 14:29 09/14/18 09:45 Polyethylene Glycol (Miralax) 17 gm DAILYPRN PRN ORAL Constipation 09/10/18 09:45 10/10/18 09:44 09/10/18 13:29 Potassium Phosphate 30 mm/ Sodium Chloride 285 ml @ 47.5 mls/hr ONCE IV 09/14/18 10:00 09/14/18 16:00 Promethazine HCl/ Codeine (Phenergan with Codeine) 5 ml Q4H PRN ORAL For Cough 09/10/18 09:45 10/10/18 09:44 Temazepam (Restoril) 15 mg HSPRN PRN ORAL Insomnia 09/10/18 09:45 09/17/18 09:44 Last 24 Hour Vital Signs Date Time Temp Pulse Resp B/P (MAP) Pulse Ox O2 Delivery O2 Flow Rate FiO2 09/14/18 09:00 Nasal Cannula 1.0 09/14/18 08:00 98.4 99 18 129/74 (92) 95 09/14/18 04:05 98.5 87 17 134/79 (97) 95 09/14/18 04:00 98.8 109 22 129/74 (92) 09/14/18 00:04 97.2 09/14/18 00:00 98.3 103 18 137/81 (99) 95 09/13/18 21:00 Nasal Cannula 1.0 09/13/18 20:00 97.2 96 18 121/72 (88) 95 09/13/18 16:00 98.2 88 16 125/69 (87) 95 09/13/18 14:30 98.2 83 18 112/66 (81) 96 09/13/18 14:00 98.0 90 20 119/72 (88) 96 09/13/18 13:45 98.3 83 20 116/67 (83) 96 09/13/18 13:30 98.1 85 20 123/68 (86) 96 09/13/18 13:15 98.1 94 20 130/73 (92) 96 09/13/18 12:45 90 20 127/73 (91) 100 09/13/18 12:40 93 20 130/78 (95) 99 09/13/18 12:35 93 20 131/74 (93) 99 09/13/18 11:22 95 22 3.0 09/13/18 09:00 Nasal Cannula 1.0 09/13/18 08:00 97.9 93 17 133/72 (92) 94 09/13/18 04:00 98.5 87 17 134/79 (97) 97 09/13/18 00:00 97.5 92 19 136/75 (95) 98 09/12/18 21:00 Nasal Cannula 1.0 09/12/18 20:00 97.2 89 17 143/84 (103) 98 89 09/12/18 16:00 98.6 90 20 125/74 (91) 99 Intake and Output 09/13/18 09/14/18 19:00 07:00 Intake Total 400 ml 1900 ml Output Total 700 ml Balance 400 ml 1200 ml Intake Oral 200 ml 800 ml IV Total 200 ml 1100 ml Output Urine Total 700 ml # Voids 4 Labs Test 09/12/18 05:56 09/13/18 04:50 09/14/18 05:20 White Blood Count 13.9 K/UL (4.8-10.8) 14.2 K/UL (4.8-10.8) 13.0 K/UL (4.8-10.8) Red Blood Count 3.76 M/UL (4.70-6.10) 3.30 M/UL (4.70-6.10) 3.05 M/UL (4.70-6.10) Hemoglobin 9.0 G/DL (14.2-18.0) 7.7 G/DL (14.2-18.0) 7.2 G/DL (14.2-18.0) Hematocrit 28.8 % (42.0-52.0) 25.2 % (42.0-52.0) 23.1 % (42.0-52.0) Mean Corpuscular Volume 77 FL (80-99) 76 FL (80-99) 76 FL (80-99) Mean Corpuscular Hemoglobin 23.9 PG (27.0-31.0) 23.4 PG (27.0-31.0) 23.6 PG (27.0-31.0) Mean Corpuscular Hemoglobin Concent 31.2 G/DL (32.0-36.0) 30.6 G/DL (32.0-36.0) 31.2 G/DL (32.0-36.0) Red Cell Distribution Width 17.1 % (11.6-14.8) 17.0 % (11.6-14.8) 16.5 % (11.6-14.8) Platelet Count 159 K/UL (150-450) 180 K/UL (150-450) 188 K/UL (150-450) Mean Platelet Volume 9.3 FL (6.5-10.1) 7.3 FL (6.5-10.1) 6.2 FL (6.5-10.1) Neutrophils (%) (Auto) % (45.0-75.0) % (45.0-75.0) % (45.0-75.0) Lymphocytes (%) (Auto) % (20.0-45.0) % (20.0-45.0) % (20.0-45.0) Monocytes (%) (Auto) % (1.0-10.0) % (1.0-10.0) % (1.0-10.0) Eosinophils (%) (Auto) % (0.0-3.0) % (0.0-3.0) % (0.0-3.0) Basophils (%) (Auto) % (0.0-2.0) % (0.0-2.0) % (0.0-2.0) Differential Total Cells Counted 100 100 100 Neutrophils % (Manual) 90 % (45-75) 89 % (45-75) 90 % (45-75) Lymphocytes % (Manual) 3 % (20-45) 5 % (20-45) 3 % (20-45) Monocytes % (Manual) 7 % (1-10) 6 % (1-10) 6 % (1-10) Eosinophils % (Manual) 0 % (0-3) 0 % (0-3) 0 % (0-3) Basophils % (Manual) 0 % (0-2) 0 % (0-2) 0 % (0-2) Band Neutrophils 0 % (0-8) 0 % (0-8) 0 % (0-8) Platelet Estimate Adequate Adequate Adequate Platelet Morphology Normal Normal Clumped Platelets Occasional 1+ Hypochromasia 1+ 3+ 2+ Anisocytosis 1+ 1+ 1+ Microcytosis 1+ 1+ 2+ Sodium Level 130 MMOL/L (136-145) 131 MMOL/L (136-145) 133 MMOL/L (136-145) Potassium Level 4.4 MMOL/L (3.5-5.1) 3.5 MMOL/L (3.5-5.1) 3.4 MMOL/L (3.5-5.1) Chloride Level 97 MMOL/L (98-107) 99 MMOL/L (98-107) 100 MMOL/L (98-107) Carbon Dioxide Level 24 MMOL/L (21-32) 24 MMOL/L (21-32) 24 MMOL/L (21-32) Anion Gap 9 mmol/L (5-15) 8 mmol/L (5-15) 9 mmol/L (5-15) Blood Urea Nitrogen 21 mg/dL (7-18) 16 mg/dL (7-18) 16 mg/dL (7-18) Creatinine 1.8 MG/DL (0.55-1.30) 1.8 MG/DL (0.55-1.30) 1.7 MG/DL (0.55-1.30) Estimat Glomerular Filtration Rate 38.9 mL/min (>60) 38.9 mL/min (>60) 41.6 mL/min (>60) Glucose Level 155 MG/DL (74-106) 115 MG/DL (74-106) 186 MG/DL (74-106) Uric Acid 8.4 MG/DL (2.6-7.2) 7.3 MG/DL (2.6-7.2) Calcium Level 9.9 MG/DL (8.5-10.1) 9.2 MG/DL (8.5-10.1) 9.1 MG/DL (8.5-10.1) Phosphorus Level 2.0 MG/DL (2.5-4.9) 1.8 MG/DL (2.5-4.9) Magnesium Level 1.9 MG/DL (1.8-2.4) 1.6 MG/DL (1.8-2.4) Total Bilirubin 0.7 MG/DL (0.2-1.0) 0.6 MG/DL (0.2-1.0) Aspartate Amino Transf (AST/SGOT) 48 U/L (15-37) 19 U/L (15-37) Alanine Aminotransferase (ALT/SGPT) 28 U/L (12-78) 14 U/L (12-78) Alkaline Phosphatase 178 U/L (46-116) 122 U/L (46-116) Total Protein 7.6 G/DL (6.4-8.2) 6.2 G/DL (6.4-8.2) Albumin 1.6 G/DL (3.4-5.0) 1.3 G/DL (3.4-5.0) Globulin 6.0 g/dL 4.9 g/dL Albumin/Globulin Ratio 0.3 (1.0-2.7) 0.3 (1.0-2.7) Metamyelocytes % 1 % (0-0) Height (Feet): 5 Height (Inches): 7.00 Weight (Pounds): 159 Objective GeN: weakness Head: normocephalic, atraumatic Eyes: right eye other - Slight ptosis right eye ; bilateral eye normal inspection, bilateral eye EOMI ENT: moist mucus membranes, other - Right facial weakness Neck: supple Respiratory: no respiratory distress, rhonchi, wheezing, expiration, posterior lower eighth or ninth rib pain not T spine tenderness CV: regular rate, rhythm, no edema GI: soft, no mass, non-distended, diffuse, scaphoid : no CVA tenderness Msk: gait/station normal, normal range of motion, no calf tenderness Neurologic: alert, oriented x3, DTRs symmetric, sensory intact, motor weakness - Right facial nerve Psychiatric: depressed affect Skin: other - Tobacco stains right index and middle finger Lymphatic: adenopathy - Right. Color noted 2 x 4 cm hard and immobile Lamonte Bean MD September 14, 2018 12:16
--- NOTE | 2018-09-14 13:22 | Nephrology Progress Note ---
Assessment/Plan Problem List: (1) Renal failure (ARF), acute on chronic Assessment: cr down 1.7 (2) Hyponatremia Assessment: Na up 133 (3) Right middle lobe pneumonia (4) Anemia (5) Hypothyroidism (6) Lung cancer metastatic to bone Assessment Renal failure ? acute on chronic ? dehydration HypoNatremia with [place] likely depletional RML Pneumonia HypoAlbuminemia / Proteinuria Anemia - Low MCV HypoThyroid Plan IV Synthroid Saline IV fluid Monitor lytes Anemia amado Per consultants lung Bx ? Subjective ROS Limited/Unobtainable: No Constitutional: Reports: malaise, weakness Objective Objective Last 24 Hour Vital Signs Date Time Temp Pulse Resp B/P (MAP) Pulse Ox O2 Delivery O2 Flow Rate FiO2 09/14/18 09:00 Nasal Cannula 1.0 09/14/18 08:00 98.4 99 18 129/74 (92) 95 09/14/18 04:05 98.5 87 17 134/79 (97) 95 09/14/18 04:00 98.8 109 22 129/74 (92) 09/14/18 00:04 97.2 09/14/18 00:00 98.3 103 18 137/81 (99) 95 09/13/18 21:00 Nasal Cannula 1.0 09/13/18 20:00 97.2 96 18 121/72 (88) 95 09/13/18 16:00 98.2 88 16 125/69 (87) 95 09/13/18 14:30 98.2 83 18 112/66 (81) 96 09/13/18 14:00 98.0 90 20 119/72 (88) 96 09/13/18 13:45 98.3 83 20 116/67 (83) 96 09/13/18 13:30 98.1 85 20 123/68 (86) 96 Intake and Output 09/13/18 09/14/18 18:59 06:59 Intake Total 300 ml 2000 ml Output Total 700 ml Balance 300 ml 1300 ml Intake Oral 200 ml 800 ml IV Total 100 ml 1200 ml Output Urine Total 700 ml # Voids 4 Laboratory Tests 09/14/18 05:20: White Blood Count 13.0H, Red Blood Count 3.05L, Hemoglobin 7.2L, Hematocrit 23.1L, Mean Corpuscular Volume 76L, Mean Corpuscular Hemoglobin 23.6L, Mean Corpuscular Hemoglobin Concent 31.2L, Red Cell Distribution Width 16.5H, Platelet Count 188, Mean Platelet Volume 6.2L, Neutrophils (%) (Auto) , Lymphocytes (%) (Auto) , Monocytes (%) (Auto) , Eosinophils (%) (Auto) , Basophils (%) (Auto) , Differential Total Cells Counted 100, Neutrophils % ( Manual) 90H, Lymphocytes % (Manual) 3L, Monocytes % (Manual) 6, Eosinophils % ( Manual) 0, Basophils % (Manual) 0, Metamyelocytes % 1H, Band Neutrophils 0, Platelet Estimate Adequate, Platelet Morphology Normal, Clumped Platelets 1+, Hypochromasia 2+, Anisocytosis 1+, Microcytosis 2+, Sodium Level 133L, Potassium Level 3.4L, Chloride Level 100, Carbon Dioxide Level 24, Anion Gap 9, Blood Urea Nitrogen 16, Creatinine 1.7H, Estimat Glomerular Filtration Rate 41.6 , Glucose Level 186H, Uric Acid 7.3H, Calcium Level 9.1, Phosphorus Level 1.8L, Magnesium Level 1.6L, Total Bilirubin 0.6, Aspartate Amino Transf (AST/SGOT) 19 , Alanine Aminotransferase (ALT/SGPT) 14, Alkaline Phosphatase 122H, Total Protein 6.2L, Albumin 1.3L, Globulin 4.9, Albumin/Globulin Ratio 0.3L Height (Feet): 5 Height (Inches): 7.00 Weight (Pounds): 159 General Appearance: no apparent distress Cardiovascular: tachycardia Respiratory/Chest: decreased breath sounds Abdomen: distended Objective no change Marcin Pham MD September 14, 2018 13:22
--- NOTE | 2018-09-14 14:41 | General Progress Note ---
Assessment/Plan Problem List: (1) Anemia ICD Codes: D64.9 - Anemia, unspecified SNOMED: 697850218 (2) Malnutrition ICD Codes: E46 - Unspecified protein-calorie malnutrition SNOMED: 61336553 (3) Sepsis ICD Codes: A41.9 - Sepsis, unspecified organism SNOMED: 18725715 (4) Right middle lobe pneumonia ICD Codes: J18.1 - Lobar pneumonia, unspecified organism SNOMED: 447107367 Qualifiers: Qualified Codes: J18.1 - Lobar pneumonia, unspecified organism (5) Hyponatremia ICD Codes: E87.1 - Hypo-osmolality and hyponatremia SNOMED: 25627761 (6) Renal failure ICD Codes: N19 - Unspecified kidney failure SNOMED: 28784096 Qualifiers: Qualified Codes: N17.9 - Acute kidney failure, unspecified (7) Bone metastases ICD Codes: C79.51 - Secondary malignant neoplasm of bone SNOMED: 05959011 Status: unchanged Assessment/Plan: o2 pulm tx abx pt diet cbc bmp am dc to aru if clear Subjective Constitutional: Reports: weakness Allergies: Coded Allergies: No Known Allergies (Unverified , 05/02/18) All Systems: reviewed and negative except above Subjective o2nc sleepy Objective Last 24 Hour Vital Signs Date Time Temp Pulse Resp B/P (MAP) Pulse Ox O2 Delivery O2 Flow Rate FiO2 09/14/18 09:00 Nasal Cannula 1.0 09/14/18 08:00 98.4 99 18 129/74 (92) 95 09/14/18 04:05 98.5 87 17 134/79 (97) 95 09/14/18 04:00 98.8 109 22 129/74 (92) 09/14/18 00:04 97.2 09/14/18 00:00 98.3 103 18 137/81 (99) 95 09/13/18 21:00 Nasal Cannula 1.0 09/13/18 20:00 97.2 96 18 121/72 (88) 95 09/13/18 16:00 98.2 88 16 125/69 (87) 95 Intake and Output 09/13/18 09/14/18 19:00 07:00 Intake Total 400 ml 1900 ml Output Total 700 ml Balance 400 ml 1200 ml Intake Oral 200 ml 800 ml IV Total 200 ml 1100 ml Output Urine Total 700 ml # Voids 4 Laboratory Tests 09/14/18 05:20: White Blood Count 13.0H, Red Blood Count 3.05L, Hemoglobin 7.2L, Hematocrit 23.1L, Mean Corpuscular Volume 76L, Mean Corpuscular Hemoglobin 23.6L, Mean Corpuscular Hemoglobin Concent 31.2L, Red Cell Distribution Width 16.5H, Platelet Count 188, Mean Platelet Volume 6.2L, Neutrophils (%) (Auto) , Lymphocytes (%) (Auto) , Monocytes (%) (Auto) , Eosinophils (%) (Auto) , Basophils (%) (Auto) , Differential Total Cells Counted 100, Neutrophils % ( Manual) 90H, Lymphocytes % (Manual) 3L, Monocytes % (Manual) 6, Eosinophils % ( Manual) 0, Basophils % (Manual) 0, Metamyelocytes % 1H, Band Neutrophils 0, Platelet Estimate Adequate, Platelet Morphology Normal, Clumped Platelets 1+, Hypochromasia 2+, Anisocytosis 1+, Microcytosis 2+, Sodium Level 133L, Potassium Level 3.4L, Chloride Level 100, Carbon Dioxide Level 24, Anion Gap 9, Blood Urea Nitrogen 16, Creatinine 1.7H, Estimat Glomerular Filtration Rate 41.6 , Glucose Level 186H, Uric Acid 7.3H, Calcium Level 9.1, Phosphorus Level 1.8L, Magnesium Level 1.6L, Total Bilirubin 0.6, Aspartate Amino Transf (AST/SGOT) 19 , Alanine Aminotransferase (ALT/SGPT) 14, Alkaline Phosphatase 122H, Total Protein 6.2L, Albumin 1.3L, Globulin 4.9, Albumin/Globulin Ratio 0.3L Height (Feet): 5 Height (Inches): 7.00 Weight (Pounds): 159 General Appearance: lethargic EENT: normal ENT inspection Neck: normal alignment Cardiovascular: normal peripheral pulses, normal rate, regular rhythm Respiratory/Chest: chest wall non-tender, lungs clear, normal breath sounds Abdomen: normal bowel sounds, non tender, soft Extremities: normal inspection Edema: no edema noted Arm (L), no edema noted Arm (R), no edema noted Leg (L), no edema noted Leg (R), no edema noted Pedal (L), no edema noted Pedal (R), no edema noted Generalized Neurologic: motor weakness Skin: normal pigmentation, warm/dry DavilaMarky Chi-Zoe September 14, 2018 14:41
--- NOTE | 2018-09-14 14:46 | Diagnostic Imaging Report ---
Indication: Multiple chest masses Technique: Informed consent obtained prior consent of the procedure. Prior imaging studies reviewed. With the patient prone, spiral localizing acquisitions obtained through the chest. Intended puncture site was localized. Sterile prepping and draping local anesthesia with 1% lidocaine.. Under CT guidance, a right-sided paraspinous mass was accessed using 17-gauge guide needle. CT scans confirm satisfactory positioning. Total of 3 core specimens and obtained using coaxial inserted 18-gauge automated biopsy gun. Specimens placed in formalin, submitted to pathology. The patient tolerated the procedure well, without immediate complication. Total dose length product 493 mGycm. CTDIvol(s) 12, 10 x 4 mGy. Radiation dose was minimized using automated exposure control Comparison: none Findings: Intraoperative images confirm appropriate needle placement. Completion images demonstrate air within the target mass and in the extrapleural space, presumably introduced by the biopsy procedure. Impression: Right paraspinous chest mass biopsy, as described. Per discussion with pathologist, preliminary findings indicate the lesion is most likely metastatic carcinoma, but special stains are still pending. This is concordant with the imaging findings The CT scanner at [facility] is accredited by the [employer] and the scans are performed using protocols designed to limit radiation exposure to as low as reasonably achievable to attain images of sufficient resolution adequate for diagnostic evaluation.
[2018-09-14] MEDS ORDERED: D5NS 1000ml IV ONE ×3 (14:50→21:59)
--- NOTE | 2018-09-14 15:00 | NUR ---
NURSE NOTES: Potassium bag is not complete
[2018-09-14] MEDS ORDERED: CEFEPIME-D2 GM/50 ML IVPB (16:32)
--- NOTE | 2018-09-14 17:20 | NUR ---
NURSE NOTES: Clearance for discharge obtained by Obey
--- NOTE | 2018-09-14 17:30 | NUR ---
NURSE NOTES: Report given to [facility] rehab follow up made in regards to continuation of antibiotics , antibiotics to be continued for 2 additional days. Pt informed of discharge information required to be repeated. Pt felt has if he was being kicked out and would not be in a bed . Informed that a bed will be available and his care will be continued. Per request on pt Mallory Mcdonough was called to be informed of discharge
--- NOTE | 2018-09-14 19:00 | Consultation ---
DATE OF CONSULTATION: 09/14/2018 PHYSICAL MEDICINE REHABILITATION CONSULTATION: CONSULTING PHYSICIAN: Devyn Doshi M.D. REFERRING PHYSICIAN: Marky Davlia D.O. FRESH FOODS CAKE DECORATOR: Marcin Pham M.D. HEMATOLOGY/ONCOLOGY: Pavel Bean M.D. INFECTIOUS DISEASE: Arcenio Horowitz M.D. ORE SMELTER: Marybel Mcmanus M.D. CHIEF COMPLAINT: Difficulty with ambulation, activity of daily living in a patient with metastatic lung cancer and brain metastasis and bony metastasis. HISTORY OF PRESENT ILLNESS: The patient is a 58-year-old male with history of tobacco and emphysema and lung cancer and brain metastasis according to medical records with right of midline cerebellar mass and right hilar mass in the chest, who has been followed with different medical facilities including [facility] and [facility] and had radiation therapy in the past, apparently has been living in his apartment, who was brought to the emergency room at [facility] with shortness of breath and generalized weakness. The patient states he had a fall and has been having back pain as well. The patient was admitted to the hospital, seen and followed by multiple consultants. The patient underwent CT-guided lung biopsy on 09/13/2018 by interventional radiologist. Postprocedure chest x-ray was negative for evidence of pneumothorax. The patient also was seen by speech therapist regarding his swallowing status; however, for the sake of quality of life, the patient was continued with regular and thin liquid diet with strict aspiration precaution. The patient was seen by Infectious Disease with diagnosis of pneumonia, was given antibiotics IV. Further studies showed severely abnormal thyroid function tests with TSH of over 43, which the patient was treated with IV Synthroid and [place] Thyroid. The patient with significant functional impairment, difficulty with his functionality and swallowing as well. I was asked today to evaluate the patient for rehabilitation. The patient has pain over the back area with generalized weakness and severe fatigue and difficulty with his functionality. PAST MEDICAL AND SURGICAL HISTORY: 1. Heavy smoking. 2. Emphysema. 3. Lung cancer. 4. Metastatic lung cancer to brain in cerebellar area. 5. Status post brain tumor surgery and radiation therapy. 6. Renal failure/chronic kidney disease. 7. Hypothyroidism. 8. Malnutrition. 9. Multiple bony metastases. ALLERGIES: Not known drug allergy. MEDICATIONS: [place] Thyroid 15 mg daily, folic acid 1 mg daily, Synthroid 100 mcg IV daily, heparin subcu q.12 hours 5000 units, Protonix 40 mg daily, cefepime IV every 24 hours, Tylenol p.r.n., MiraLAX 17 g p.r.n., nitroglycerin p.r.n., Phenergan (promethazine) with codeine p.r.n., albuterol p.r.n., Zofran p.r.n., Restoril p.r.n., D50 p.r.n., morphine p.r.n. SOCIAL HISTORY: The patient lives alone in an apartment with 16 steps to get in. He was independent for ambulation and activity of daily living as his prior level of function without usage of any assistive device. Currently requires minimal to moderate assistance for bed mobility and transfer, walking with a front wheel walker up to 25 feet with minimal assist and above. He has history of heavy smoking. No history of alcohol or illicit drugs. FAMILY HISTORY: The patient denies any significant family medical history. REVIEW OF SYSTEMS: CONSTITUTIONAL: No chills or fever. EYES: Denies diplopia. ENT: The patient with dysphagia. CARDIOVASCULAR: Denies chest pain. PULMONARY: The patient with lung cancer. GASTROINTESTINAL: No abdominal pain. GENITOURINARY: Denies dysuria. MUSCULOSKELETAL: Multiple metastatic bony cancers with back pain. INTEGUMENTARY: No report of pressure ulcer. NEUROLOGIC: The patient with metastatic cancer to the brain at the cerebellar area, status post surgery and radiation therapy. PHYSICAL EXAMINATION: VITAL SIGNS: Blood pressure 120/70, respiratory rate 18 per minute, heart rate 99 per minute, temperature 98 degrees Fahrenheit, O2 saturation 95%. Height is 170 centimeter, weight is 72 kg. Body mass index 25. GENERAL: No acute distress. HEENT: Extraocular movements intact. No facial droop. NECK: Supple with no lymphadenopathy. PULSE: Bilateral carotid, femoral, and dorsalis pedis palpable. HEART: Regular. LUNGS: Coarse breath sounds at bilateral lung roper. ABDOMEN: Soft, nontender, nondistended. EXTREMITIES: No pitting edema. No calf tenderness. No clubbing or cyanosis. SKIN: No rashes. NEUROLOGIC: The patient is awake. Follows commands. Generalized weakness. Poor historian. DATA: Sodium 133, potassium 3.4, BUN 16, creatinine 1.7, glucose 186. WBC 13,000, hemoglobin 7.2, platelets 188. ASSESSMENT: This is a 58-year-old male with. 1. Nontraumatic brain injury. 2. Metastatic lung cancer to the brain with the right of midline cerebellar mass according to medical records, brain surgery and radiation therapy at [facility]. 3. Lung cancer, status post CT-guided biopsy on 09/13/2018 at [facility] by interventional radiologist. 4. Multiple bony metastases. 5. Debility and functional decline. 6. Gait abnormality. 7. Leukocytosis. 8. Anemia. 9. Hypothyroidism. 10. Chronic kidney disease. 11. Malnutrition. 12. Gait abnormality and functional decline. 13. Hypercalcemia. 14. Dysphagia. RECOMMENDATION: Further evaluation and workup and management per risk mgr/oncologist and director zone. Internal Medicine, primary care physician to follow regarding any further workup and management. Physical therapy, occupational therapy, speech therapy evaluation and training. Physical therapy for range of motion, transfer training, endurance, balance, and ambulation training with an appropriate assistive device and occupational therapy for activities of daily living, equipment function, transfer evaluation, and training upper extremity range of motion and strengthening exercise. Speech therapy for evaluation and retraining of higher level of cognition, memory, speech, language, and also swallow evaluation and retraining and aspiration precaution. Nursing for evaluation of his bowel and bladder. Medication regimen, skin care, prevention of pressure ulcer, patient and cook fish and chips education. Fall precaution, pressure ulcer precaution, cardiac precaution, aspiration precaution. I will order a thoracic and lumbar spine x-ray to evaluate for status of this pain on the back after he had a fall. Pain Management per primary care physician. After the patient being stabilized and confirmed the final discharge destination and being medically cleared, a course of acute inpatient rehabilitation warranted for a quick hopefully improvement on his medical and functional status and having better quality of life at home with the help of his family friends, which apparently are available to help him. Medical management per Medicine. Thank you for your consultation. Devyn Doshi M.D. DR: ALLI JOB#: [id number] CC:
--- NOTE | 2018-09-14 19:20 | NUR ---
NURSE NOTES: Upon this writing pt has not been picked up pt is in stable condition . Report given to Honey
--- NOTE | 2018-09-14 20:00 | NUR ---
Igor phoned to inquire if pt was still coming Transportation remains pending. Pt information given in regards to labs potassium level , completion of Potassium, magnesium , and dose. Informed that 2 doses required to be administered in addition to antibiotics for today and two additional days. Staff also requested MARS phone call transferred to charge nurse
--- NOTE | 2018-09-14 20:29 | NUR ---
HAND-OFF: Report given to .Honey RAM
--- NOTE | 2018-09-14 20:29 | NUR ---
NURSE NOTES:Patient received from Rafia Bo Patient denies any pain . no s/s distress of distress noted . IVF infusing well .Patient refused SCDS . Patient uses urinals and voiding freely to yellow urine . safety and fall precaution Implemented . call light within reach . bed in low position. bed alarm active . will continue to monitor .
[2018-09-14] MEDS ORDERED: Tubing IV Secondary IV ONE (21:59)
--- NOTE | 2018-09-14 22:00 | NUR ---
NURSE NOTES:Patient discharged to [facility] rehab. hosp. as ordered by .patient vss, afebrile . no s/s of distress noted .back dressing c/d/i Report given by josee McKinstry Reklaimline transporter . H/L, ID Band and personal belongings given to Patient and to life line transporter . Addendum: 09/14/18 at 2303 by CHARLI SHAH LVN patient prescription glasses, wallet Smart phone endorsed TO josee life line transporter. Addendum: 09/14/18 at 2306 by CHARLI SHAH LVN patient discharge via [facility]. Addendum: 09/14/18 at 2323 by CHARLI GRIFFITHN H/L, and armliam removed . Addendum: 09/15/18 at 0511 by CHARLI SHAH MISSILE TECHNICIAN patient vss, Afebrile . Patient in good condition upon discharged via [facility] ambulance.
--- NOTE | 2018-09-15 08:51 | Discharge Summary ---
Discharge Summary Discharge Summary _ DATE OF ADMISSION: 09/10/2018 DATE OF DISCHARGE: 09/14/2018 DISCHARGED BY: Dr Davila REASON FOR ADMISSION: 58 years old male with past medical history of emphysema/COPD, hypothyroidism, brain cancer, presented for two weeks of right posterior lower rib pain. Patient reported difficulty sleeping , because no position is comfortable. Patient was not using any inhaler or nebulizer at home. No fever, no chills. Patient reported cough with occasional yellowish phlegm. No hemoptysis. CT head in April revealed cerebellar mass . Patient was transferred at that time to [facility]. MRI was done and radiation started. Patient reported difficulty speaking at times, but no problems swallowing. Patient has oncologist at [facility] that he follows. Laboratory work-up revealed elevated WBC 18.7. Hemoglobin 9.3, hematocrit 28.7. MCV 74. Chemistry demonstrated BUN 31, creatinine 2.0. Sodium 124, glucose 91. Lactic acid1.3. Calcium 11 . Troponin negative, pro BNP 1089 , EKG revealed sinus rhythm, no acute ischemic changes . Chest x-ray revealed interval significant progression of probable metastatic disease of the chest. CT of the chest revealed large right lower lobe/infraclavicular mass with extensive adjacent satellite nodularity, indicative of progression of malignancy. Associated occlusion of the right lower lobe bronchi , likely postobstructive. Interval enlargement of the right paravertebral mass , adjacent to the medial right lower lobe , eroding into the adjacent 7, 8 ,and 9 thoracic vertebral bodies. New compression deformity of T7, T8, likely pathologic fracture. Interval enlargement of innumerable bilateral pulmonary metastatic nodules. Urinalysis revealed no evidence of UTI, Patient pancultured and started on empiric antibiotic for pneumonia, Urine toxicology screen was negative. Patient started on supplemental oxygen . Pain management was addressed . Patient subsequently was admitted for further evaluation and management. CONSULTANTS: pulmonary Dr. Mcmanus ID specialist Dr. Horowitz harvest supervisor Dr. Pham senior consulting manager/oncologist Dr. Bean physical medicine claim benefit specialist Dr. Gaviria HOSPITAL COURSE: Patient admitted and started on empiric antibiotic as per ID specialist recommendation. Supplemental oxygen provided as needed to keep pulse oximetry above 92%. Pulmonary toilet with chest physiotherapy and hand-held nebulizer provided as per agent contract clerk recommendations. Antitussive provided as needed. DVT prophylaxis provided. Pain management was addressed. Blood cultures were negative. Sputum culture revealed Pseudomonas and Elis. Patient was treated with antibiotic, which need to be continued upon transfer to complete the course. Leukocytosis trending down, patient afebrile. Patient subsequently undergone CT-guided biopsy of right lung mass on 2028. Per discussion with pathologist, preliminary findings indicated that lesion was most likely metastatic carcinoma , but special stains still pending. At the time of this dictation no further results available. Follow-up chest x-ray revealed no evidence of postbiopsy pneumothorax. Commercial Appraiser followed. Hyponatremia with low urine sodium was likely depletional. Patient was hydrated with normal saline solution. Renal parameters and electrolytes were closely monitored. Electrolytes corrected as needed. Sodium up to 133. Creatinine from 2 down to 1.7. Per harvest supervisor patient likely had renal failure, acute on chronic. Patient initially presented with hypercalcemia, likely due to malignancy. Patient was hydrated. Aredia and Zometa were recommended by oncologist if needed. However, hypercalcemia resolved with IV hydration. Per oncologist, given the results of the imaging, patient most likely had metastatic lung cancer , given prior cancer history. Outpatient PET scan was done last week. Patient to follow-up with Dr. Post at [facility] as outpatient. Hemoglobin and hematocrit were closely monitored with goal to keep hemoglobin above 7. Epogen or iron at this time were not particularly indicated. Anemia work-up revealed evidence of anemia of chronic disease. Ferritin was high. No evidence of hemolysis. Pain management was addressed. Bowel regimen instituted. Bedside swallow evaluation was completed. According to speech therapist patient had risk for aspiration. For quality of life , regular diet with thin liquids with strict aspiration precaution initiated. Video swallow evaluation was recommended, which can be done as outpatient. Nutritional recommendation regarding protein supplements implemented in plan of care. Patient was working with physical therapist. Fall precaution maintained. TSH elevated, levothyroxine dose was uptitrated. Patient clinically stabilized and was transferred to acute rehabilitation center at [facility] for further rehabilitation. FINAL DIAGNOSES: Pseudomonas pneumonia, probably postobstructive pneumonia Metastatic lung cancer with metastasis to bone Status post CT-guided right chest mass biopsy Acute hyponatremia, likely depletional - nearly resolved Acute on chronic renal failure Hypercalcemia, likely due to malignancy Protein calorie malnutrition Emphysema of lung /COPD T7-T8 pathological fracture Anemia of chronic disease DISCHARGE MEDICATIONS: See Medication Reconciliation list. DISCHARGE INSTRUCTIONS: Patient was transferred to acute rehabilitation unit at [facility]. Follow-up with medical doctor at the facility. I have been assigned to dictate discharge summary for this account. I was not involved in the patient's management. Erin Rivera NP September 15, 2018 08:51
== END 2018-09-14 22:00 | disposition short-term general hospital (02) | DRG 166 ==
LOC: EDBD 06:15 → EMR 06:27 → 3E 07:52 → EDBEDREQ 09:15
PROC: 0PB43ZX Excision of Thoracic Vertebra, Percutaneous Approach, Diagnostic (ICD-10-PCS; principal; 2018-09-13)
DX: J15.1 Pneumonia due to Pseudomonas (principal); B37.1 Pulmonary candidiasis; E87.1 Hypo-osmolality and hyponatremia; C34.90 Malignant neoplasm of unspecified part of unspecified bronchus or lung; C79.51 Secondary malignant neoplasm of bone; N17.9 Acute kidney failure, unspecified; E46 Unspecified protein-calorie malnutrition; M84.48XA Pathological fracture, other site, initial encounter for fracture; Z85.841 Personal history of malignant neoplasm of brain; N18.9 Chronic kidney disease, unspecified; E83.52 Hypercalcemia; J43.8 Other emphysema; D63.8 Anemia in other chronic diseases classified elsewhere; E03.9 Hypothyroidism, unspecified; R79.1 Abnormal coagulation profile; F17.200 Nicotine dependence, unspecified, uncomplicated
CPT/HCPCS: 32405; 36415; 71045; 71250; 80048; 80053; 80061; 80202; 80307; 81003; 82247; 82248; 82533; 82550; 82570; 82607; 82728; 82746; 82977; 83036; 83540; 83550; 83605; 83735; 83880; 83935; 84100; 84165; 84300; 84439; 84443; 84481; 84484; 84550; 85007; 85025; 85044; 85060; 85384; 85610; 85660; 85730; 86140; 86703; 87040; 87070; 87181; 87205; 93005; 94640; 94664; 96365; 96375; 97803; 99285; C9399; J2250; J2405; J7620